=== PATIENT | female | born 1960 | race Caucasian/White ===

== ENCOUNTER → 2019-12-25 | Outpatient (CLI) | payer OTHER ==
--- NOTE | 2019-12-27 03:16 | MR ---
EXAMINATION TYPE: MR shoulder RT wo con DATE OF EXAM: 12/25/2019 COMPARISON: None HISTORY: Major pain with RT shoulder Multiplanar multiecho imaging of the right shoulder was performed without contrast. FINDINGS: There is deformity of the humeral head with flattening of the articular surface. There is shoulder warren int effusion. There is deformity of the glenoid with small or absent glenoid david. The subscapularis tendon is intact. There are multiple areas of cystic change in the humeral head and greater tuberosi ty. The biceps tendon is intact. The subscapularis tendon appears intact. There is no retraction. The AC joint is intact. There is min imal spurring of the inferior surface of the AC joint without significant impingement on the supraspi natus tendon. There is small amount of fluid in the subacromial subdeltoid bursa. IMPRESSION: Significant deformity of the shoulder joint with flattening of the articular surface of the humeral h ead and also adjacent deformity of the glenoid. No dislocation. Shoulder joint effusion and subdeltoi d effusion consistent with bursitis. No definite rotator cuff tear. Etiology is not clear for the sig nificant shoulder joint deformity. This could be neuropathic arthropathy.
== END | disposition home or self-care (01) ==
LOC: RADMRIMAIN 11:04
PROVIDERS: ATTEND Orthopaedic Surgery
DX: M21.821 Other specified acquired deformities of right upper arm (principal); M25.411 Effusion, right shoulder

== ENCOUNTER → 2020-01-01 | Outpatient (CLI) | payer OTHER | END | disposition home or self-care (01) | LOC: LABPAT 11:59 | PROVIDERS: ATTEND Orthopaedic Surgery | DX: Z01.812 Encounter for preprocedural laboratory examination (principal) | CPT/HCPCS: 87070 ==

== ENCOUNTER → 2020-01-07 | Outpatient (CLI) | payer OTHER ==
--- NOTE | 2020-01-08 11:14 | MM ---
Reason for exam: screening (asymptomatic). Last mammogram was performed 7 years and 6 months ago. History: Patient is postmenopausal. Took hormonal contraceptives for 1 year. Physical Findings: A clinical breast exam by your physician is recommended on an annual basis and results should be correlated with mammographic findings. MG 3D Screening Mammo W/Cad Bilateral CC and MLO view(s) were taken. Prior study comparison: November 02, 2015, mammogram, performed at [facility]. May 15, 2014, mammogram, performed at [facility]. The breast tissue is heterogeneously dense. This may lower the sensitivity of mammography. There are benign appearing vascular calcifications in the right breast. There is no discrete abnormality. ASSESSMENT: Benign, BI-RAD 2 RECOMMENDATION: Routine screening mammogram of both breasts in 1 year.
== END | disposition home or self-care (01) ==
LOC: RADMAMWWP 13:47
PROVIDERS: ATTEND Family Medicine
DX: Z12.31 Encounter for screening mammogram for malignant neoplasm of breast (principal)
CPT/HCPCS: 77063; 77067

== ENCOUNTER 2020-01-28 11:16 | Observation (INO) | payer OTHER ==
--- NOTE | 2020-01-27 11:09 | HP ---
HISTORY AND PHYSICAL CHIEF COMPLAINT: Right shoulder pain. HISTORY OF PRESENT ILLNESS: The patient is a 59-year-old right-hand dominant female who presents with progressive right shoulder pain for the past year. She notes diffuse pain. She has pain with any attempted overhead use and at night. She had a previous manipulation under anesthesia in May of 2019. She has had multiple previous injections. She is having persistent pain. PAST MEDICAL HISTORY: Significant for depression and subdural hematoma. PAST SURGICAL HISTORY: Significant for previous right shoulder manipulation. CURRENT MEDICATIONS: Omeprazole, Topamax, Wellbutrin. She has allergies to PENICILLIN. FAMILY HISTORY: Significant for cancer. SOCIAL HISTORY: Significant for previous tobacco use. 16 POINT REVIEW OF SYSTEMS: Otherwise reviewed and is noncontributory. PHYSICAL EXAMINATION: On examination, the patient is approximately 5 foot 1, 125 pounds of ectomorphic habitus. HEENT: Exam is nonfocal. NECK: Supple. On examination of right shoulder, she has moderate anterior swelling. There is no warmth or erythema. She is tender about the anterior glenohumeral joint. She has moderate subacromial crepitus. Active range of motion forward elevation 95 degrees with external rotation arm side 0, internal rotation to L3. Passively I am able to forward elevate her to 130 degrees. Motor strength is 4+/5 for abduction and external rotation. Impingement test, NEER test, and Speed test were positive. Her distal neurovascular appears intact in the right upper extremity. X-rays of the right shoulder obtained in the office show fragmentation of the humeral head with collapse. MRI of the right shoulder shows similar findings along with flattening of the glenoid. The rotator cuff appears to be intact. 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 RECOMMENDATIONS: I talked to the patient at length regarding her condition along with treatment options. At this point, I would recommend proceeding with surgical intervention. Will plan to proceed with right total shoulder arthroplasty versus reverse total shoulder arthroplasty. Risks and benefits were discussed at length in layman's terms. She did undergo preoperative medical evaluation by her primary care physician. MMODL / IJN: [id number] /
[~2020-01-28 11:16] MED LIST: ACETAMINOPHEN TAB 500 MG TAB PO ONE; DEXAMETHASONE SOD PHOSPHATE 10 MG/ML 1 ML VIAL IV ONE; HYDROmorphone 0.5 MG/0.5 ML SYRINGE IVP PRN; LIDOCAINE 1% (10MG/ML) FOR IV START INTRADERMA PRN; MELOXICAM 7.5 MG TAB PO ONE; MIDAZOLAM 2 MG/2 ML VIAL IV PRN; ONDANSETRON 4 MG/2 ML VIAL IVP ONE; TRANEXAMIC ACID 1,000 MG in SODIUM CHLORIDE 0.9% 100 ML IVPB ONE
[2020-01-28] MEDS: LACTATED RINGERS 1,000 ML IV SCH (11:55)
[2020-01-28] MEDS ORDERED: MIDAZOLAM 2 MG/2 ML VIAL IV ONE (12:11)
[2020-01-28] MEDS ORDERED: PROPOFOL 10 MG/ML 20 ML VIAL IV ONE (12:50)
[2020-01-28] MEDS ORDERED: MIDAZOLAM 2 MG/2 ML VIAL ONE (12:50)
[2020-01-28] MEDS ORDERED: ROCURONIUM 10 MG/ML (10 ML VIAL) IV ONE (12:50)
[2020-01-28] MEDS ORDERED: PHENYLEPHRINE-0.9% NACL SYG 1 MG/10 ML SYRINGE ONE (12:50)
[2020-01-28] MEDS ORDERED: TRANEXAMIC ACID 1,000 MG/10 ML VIAL ONE (12:50)
[2020-01-28] MEDS ORDERED: fentaNYL (PF) 50 MCG/ML 2 ML AMP ONE (12:50)
[2020-01-28] MEDS ORDERED: NEOSTIGMINE 1 MG/ML 10 ML VIAL ONE (12:50)
[2020-01-28] MEDS ORDERED: SODIUM CHLORIDE 0.9% 100 ML BAG ONE (12:50)
[2020-01-28] MEDS ORDERED: SUCCINYLCHOLINE CHLORIDE 100 MG/5 ML SYR IV ONE (12:50)
[2020-01-28] MEDS ORDERED: GLYCOPYRROLATE 0.2 MG/ML 2 ML VIAL ONE (12:50)
[2020-01-28] MEDS ORDERED: ONDANSETRON 4 MG/2 ML VIAL ONE (12:50)
[2020-01-28] MEDS ORDERED: DEXAMETHASONE SOD PHOSPHATE 4 MG/ML 1 ML VIAL ONE (12:50)
[2020-01-28] MEDS ORDERED: ROPIVACAINE 5 MG/ML 30 ML VIAL ONE (12:50)
--- NOTE | 2020-01-28 13:06 | P.ANPRN ---
Procedure Note - Anesthesia - Nerve Block Performed Right Interscalene Single Time Out Performed: Yes (1210) Date of Procedure: 01/28/20 Procedure Start Time: 12:11 Procedure Stop Time: 12:21 Location of Patient: PreOp Indication: Acute Post-Operative Pain, Analgesia, Requested by Surgeon Specifically requested for management of pain by : Dick Gaines Sedation Type: Sedate with meaningful contact maintained Preparation: Sterile Prep Position: Left Lateral Catheter: None Needle Types: Pajunk Needle Gauge: 20 Ultrasound used to visualize needle placement: Yes Ultrasound used to observe medication spread: Yes Injectate: 0.5% Ropivacaine (see comment for volume) (19 mL + 10 mg decadron) Blood Aspirated: No Pain Paresthesia on Injection Noted: No Resistance on Injection: Normal Image Stored and Saved: Yes Events: Uneventful and Well Tolerated
[2020-01-28] MEDS ORDERED: LACTATED RINGERS 1,000 ML IV ONE (14:40)
[2020-01-28] MEDS ORDERED: ONDANSETRON 4 MG/2 ML VIAL IVP PRN (14:47)
[2020-01-28] MEDS ORDERED: HYDROcodone/APAP 5-325MG 1 EACH TAB PO PRN ×2 (14:47)
[2020-01-28] MEDS ORDERED: ACETAMINOPHEN TAB 325 MG TAB PO PRN (14:51)
--- NOTE | 2020-01-28 15:13 | P.OP ---
Date of Procedure: 01/28/20 Preoperative Diagnosis: Right proximal humeral avascular necrosis with collapse/severe arthropathy right shoulder Postoperative Diagnosis: Same Procedure(s) Performed: Right total shoulder arthroplasty Implants: [employer] size 10 press-fit humeral stem was size 8 body, 44 x 18 mm eccentric humeral head, 40 mm cemented central pegged glenoid Anesthesia: NIMISHA Surgeon: Dick Gaines Private Duty Rn #1: Grzegorz Moss Estimated Blood Loss (ml): 100 Pathology: other (Bone fragments) Condition: stable Disposition: PACU Indications for Procedure: The patient's a 59-year-old female who previously underwent a right shoulder manipulation presented with fragmentation of her humeral head and severe glenohumeral arthropathy. A discussion of the risks and benefits of operative intervention was made with patient. She opted to proceed with surgery. Operative risks to include infection, neurovascular injury, development of blood clots, possible component loosening, possible instability and need for subsequent procedures was discussed. Informed consent was obtained. Operative Findings: As below Description of Procedure: The patient was brought to the operating room, and after induction of general anesthesia was placed in the beachchair position. The bony prominences were appropriately padded. The right upper extremity was prepped and draped in normal fashion. A deltopectoral incision was then made lateral to the coracoid process extending approximately 12 cm. The skin was incised sharply. Subcutaneous tissues were divided bluntly. Electrocautery was used for hemostasis. The deltopectoral interval was identified and the cephalic vein gently retracted laterally with the deltoid. Subdeltoid adhesions were bluntly dissected. A self-retaining retractor was placed. The clavipectoral fascia was opened and the conjoined tendon gently retracted medially. The upper one third of the pectoralis major was released to help facilitate exposure. The biceps was identified and the sheath was opened. The rotator interval was opened. The biceps was tenotomized and allowed to retract distally. The lesser tuberosity osteotomy was performed with a small sagittal saw. This completed with an osteotome. The humeral head was then exposed releasing the capsule off the humeral neck. The shoulder was gently dislocated. A starting hole was made in the head in line with the humeral shaft. The shaft was reamed by hand up to 10 mm. There is good distal chatter. The cutting guide was placed planning on a cut flush with the rotator cuff insertion and 30 of retroversion. The cutting block was pinned in place. The humeral head cut was then made. A posterior glenoid retractor was placed. The glenoid was then exposed releasing the labrum from the 12-6 o'clock position. Residual labral tissue was removed. The glenoid sized most appropriate 40 mm. A guidewire was then inserted planning on the appropriate version. The glenoid was reamed down to a bleeding bony surface. The central peg hole was drilled. The alignment guide was placed in the peripheral peg holes drilled. The trial size 40 mm glenoid was placed and was fully seated. There was good anterior to posterior and inferior to superior fit. The trial component was removed. Pulsatile lavage was utilized. The bony surface was dried. The peripheral peg holes were then pressurized with cement utilizing a syringe. Excess cement was removed. A central peg glenoid was then placed and was fully seated. This was gently impacted. This was held in place until the cement had sufficiently hardened. Attention was then paid again towards preparing the proximal humerus. The appropriate broach was placed in 30 of retroversion and was fully seated. An eccentric 44 x 18 mm humeral head was placed. The shoulder was gently reduced. It was taken through a range of motion. It was felt to be stable in flexion and extension with internal and external rotation. I felt there was adequate latter day of soft tissue tension. The shoulder was gently dislocated. The trial components were then removed. A #2 Ethibond was placed laterally for reattachment of the lesser tuberosity. The humeral stem was inserted in 30 of retroversion and was fully seated. There was good rotational stability. The eccentric 44 x 18 mm humeral head was gently impacted. The shoulder was then gently reduced and taken through range of motion and was felt to be stable. Pulsatile lavage was utilized. Lesser tuberosity was reattached utilizing #2 Ethibond suture. The rotator interval was closed with #2 Ethibond suture. She had minimal drainage at this point therefore a deep drain was not placed. The deltopectoral interval was closed with interrupted 2-0 Vicryl sutures. The subcu tissues were reapproximated with interrupted 2-0 Vicryl sutures. The skin was reapproximated with 3-0 subcuticular Prolene suture. Steri-Strips were applied. A sterile dressing was applied in addition to a sling. The patient was then awoken from general anesthesia and transferred to recovery room in good condition. Blood loss was estimated at 100 mL. No complications were incurred. Sponge and needle counts were correct at the end the case. Frank OLMOS assisted in the major components the case to include exposure, resection, implantation, and closure.
--- NOTE | 2020-01-28 15:50 | XR ---
EXAMINATION TYPE: XR shoulder complete RT DATE OF EXAM: 01/28/2020 Comparison: None Clinical History: 59year-old female s/p right TSA Findings: Image demonstrates placement of right total shoulder arthroplasty. There is gross anatomic alignment. Some scattered soft tissue air related to recent operation. Humeral stem component well seated. Impression: Uncomplicated postoperative appearance right total shoulder arthroplasty.
[2020-01-28] MEDS ORDERED: ALPRAZolam 1 MG TAB PO SCH (23:30)
[2020-01-28] MEDS: CYCLOBENZAPRINE 10 MG TAB PO SCH (23:31)
[2020-01-29] MEDS: LACTATED RINGERS 1,000 ML IV SCH (05:17)
[2020-01-29 06:50] LABS: Basophils % (A) 0 %; Eosinophils # (A) 0.1 k/uL (0-0.7); Eosinophils % (A) 1 %; HCT 30.4 % (34.0-46.0); HGB 9.7 gm/dL (11.4-16.0); Lymphocytes # (A) 0.7 k/uL (1.0-4.8); Lymphocytes % (A) 11 %; MCH 28.4 pg (25.0-35.0); MCV 88.7 fL (80.0-100.0); Mean Platelet Volume 7.3; Monocytes # (A) 0.4 k/uL (0-1.0); Monocytes % (A) 6 %; Neutrophils # (A) 5.5 k/uL (1.3-7.7); Neutrophils % (A) 81 %; Platelet Count 176 k/uL (150-450); RBC 3.43 m/uL (3.80-5.40); RDW 13.6 % (11.5-15.5); WBC 6.8 k/uL (3.8-10.6)
[2020-01-29] MEDS: ASPIRIN 325 MG TAB PO SCH (08:20)
[2020-01-29] MEDS: HYDROmorphone 0.5 MG/0.5 ML SYRINGE IVP PRN ×3 (08:20→19:58)
[2020-01-29] MEDS ORDERED: HYDROcodone/APAP 7.5-325MG 1 EACH TAB PO PRN (10:35)
[2020-01-29] MEDS ORDERED: HYDROXYCHLOROQUINE SULFATE 200 MG TAB PO SCH (10:45)
[2020-01-29] MEDS: HYDROcodone/APAP 7.5-325MG 1 EACH TAB PO PRN ×2 (11:07→17:24)
[2020-01-29] MEDS: PANTOPRAZOLE 40 MG TABLET PO SCH (11:09)
--- NOTE | 2020-01-29 11:09 | P.PN ---
Subjective Progress Note Date: 01/29/20 Principal diagnosis: Status post right total shoulder arthroplasty patient is examined today at bedside, stressing bed. She's been up ambulating. She has had some increase in pain, this has required IV pain medication. She denies any headaches, lightheadedness, chest pain, shortness of breath, fever or chills. Objective - Vital Signs Vital signs: Vital Signs Temp 97.3 F L 01/29/20 07:08 Pulse 84 01/29/20 07:08 Resp 14 01/29/20 07:08 BP 103/62 01/29/20 07:08 Pulse Ox 97 01/29/20 07:08 Intake & Output 01/28/20 01/29/20 01/29/20 18:59 06:59 18:59 Intake Total 1550 Output Total 100 Balance 1450 Weight 57.8 kg Intake: IV 1550 Output: Estimated Blood Loss 100 Other: # Voids 1 - Exam Right upper extremity: Postoperative bandages removed, incision is clean, dry and intact. Minimal ecchymosis and soft tissue swelling present throughout the arm. Range of motion was not assessed of the shoulder, extension and flexion are intact to the elbow, and wrist. Exam light touch throughout the extremity is intact. Radial pulses 2+ - Labs CBC & Chem 7: 01/29/20 06:09 Labs: Abnormal Lab Results - Last 24 Hours (Table) 01/29/20 Range/Units 06:09 RBC 3.43 L (3.80-5.40) m/uL Hgb 9.7 L (11.4-16.0) gm/dL Hct 30.4 L (34.0-46.0) % Lymphocytes # 0.7 L (1.0-4.8) k/uL Assessment and Plan Assessment: Status post right total shoulder arthroplasty Plan: Pain control, I did increase oral [place] 7.5 mg/325 mg DVT prophylaxis, continue aspirin 325 mg daily Daily dressing changes Continue use of arm sling Medical recommendations Depending on pain control this afternoon, may discharge home today Time with Patient: Less than 30
[2020-01-29] MEDS: MELOXICAM 7.5 MG TAB PO SCH (11:10)
[2020-01-29] MEDS: ATORVASTATIN 80 MG TAB PO SCH (11:12)
[2020-01-29] MEDS: FLUoxetine HCL 20 MG CAP PO SCH (11:13)
[2020-01-29] MEDS: HYDROXYCHLOROQUINE SULFATE 200 MG TAB PO SCH (11:15)
[2020-01-29] MEDS: buPROPion SR 150 MG TABLET.ER PO SCH (11:15)
--- NOTE | 2020-01-29 17:18 | CONS ---
CONSULTATION This patient is a 59-year-old white female with home medications Wellbutrin XR, rosuvastatin, omeprazole, Mobic, Plaquenil, Prozac and Xanax who is here status post right shoulder repair. She is having no chest pain or shortness of breath. At this point we are going to restart her home medicines. Otherwise she appears to be stable. ALLERGIES: PENICILLIN. FAMILY HISTORY: Cancer. SOCIAL HISTORY: Previous nicotine. PHYSICAL EXAMINATION: Height 5 feet 1 inch, 125 pounds. HEENT: Normocephalic, atraumatic. NECK: Supple. CARDIOVASCULAR: S1, S2. LUNGS: Clear. Right arm in a sling. Bandage on the shoulder. ASSESSMENT: Status post shoulder repair, right humeral head. Continue her home medications that she takes for depression, migraines, GERD. Please see further orders. Stable at this time. MMODL / IJN: [id number] /
[2020-01-29] MEDS: CYCLOBENZAPRINE 10 MG TAB PO SCH (20:00)
[2020-01-29] MEDS ORDERED: ALPRAZolam 1 MG TAB PO SCH (21:00)
[2020-01-30] MEDS: HYDROcodone/APAP 7.5-325MG 1 EACH TAB PO PRN ×2 (01:51→09:29)
[2020-01-30] MEDS: HYDROmorphone 0.5 MG/0.5 ML SYRINGE IVP PRN (03:50)
[2020-01-30] MEDS: FLUoxetine HCL 20 MG CAP PO SCH (09:23)
[2020-01-30] MEDS: ATORVASTATIN 80 MG TAB PO SCH (09:25)
[2020-01-30] MEDS: MELOXICAM 7.5 MG TAB PO SCH (09:25)
[2020-01-30] MEDS: ASPIRIN 325 MG TAB PO SCH (09:25)
[2020-01-30] MEDS: PANTOPRAZOLE 40 MG TABLET PO SCH (09:29)
[2020-01-30] MEDS: buPROPion SR 150 MG TABLET.ER PO SCH (09:31)
[2020-01-30] MEDS: HYDROXYCHLOROQUINE SULFATE 200 MG TAB PO SCH (09:32)
--- NOTE | 2020-01-30 11:00 | P.PN ---
Subjective Progress Note Date: 01/30/20 Principal diagnosis: Status post right total shoulder arthroplasty patient is examined today at bedside, stressing bed. She's been up ambulating. Pain is better controlled today. She denies any headaches, lightheadedness, chest pain, shortness of breath, fever or chills. Objective - Vital Signs Vital signs: Vital Signs Temp 97.3 F L 01/30/20 09:04 Pulse 90 01/30/20 09:04 Resp 16 01/30/20 09:04 BP 113/75 01/30/20 09:04 Pulse Ox 96 01/30/20 09:04 Intake & Output 01/29/20 01/30/20 01/30/20 18:59 06:59 18:59 Other: # Voids 2 1 - Exam Right upper extremity: Incision is clean, dry and intact. Minimal ecchymosis and soft tissue swelling present throughout the arm. Range of motion was not assessed of the shoulder, extension and flexion are intact to the elbow, and wrist. Exam light touch throughout the extremity is intact. Radial pulses 2+ - Labs CBC & Chem 7: 01/29/20 06:09 Assessment and Plan Assessment: Status post right total shoulder arthroplasty Plan: Pain control, plan for discharge home on [place] 7.5 mg/5 mg DVT prophylaxis, continue aspirin 325 mg daily Daily dressing changes Continue use of arm sling Medical recommendations Plan for discharge home today Time with Patient: Less than 30
--- NOTE | 2020-01-30 11:02 | P.DS ---
Providers Date of admission: 01/28/2020 Expected date of discharge: 01/30/20 Attending physician: Dick Gaines Consults: 01/28/20 14:51 Consult Physician Routine Consulting Provider: Patricia Grimes Reason/Comments: Medical Management Do you want consulting provider notified?: Yes Primary care physician: Patricia Grimes DO Hospital Course: Date of admission: 01/28/2020 Date of discharge: 01/30/2020 Admission diagnosis: Status post right total shoulder arthroplasty Discharge diagnosis: Same Attending physician: Dr. Gaines Surgical procedures: Total shoulder arthroplasty Brief history: Patient is a 59-year-old female with a history of avascular necrosis involving the humeral head of the right shoulder. At this point patient has failed conservative treatment measures and has opted to proceed with a elective right total shoulder arthroplasty. Hospital course: Details of patient's surgery can be found in operative report. Patient tolerated the procedure well and was subsequently transported to orthopedic floor. Patient's orthopeidc and medical care was provided daily. Patient had daily laboratory tests performed for evaluation of overall blood counts. Patient had daily physical therapy to include strengthening range of motion as well as education with walker ambulation. Patient was treated with aspirin for their postoperative DVT prophylaxis during their inpatient stay. Patient was noted to have a relatively uneventful postoperative course. Patient reported satisfactory pain control with oral pain medications by postoperative day 0. Patient showed satisfactory progress with physical therapy. Patient moved steadily through the program and had no difficulty meeting the goals by postoperative day 2. Given patient's otherwise satisfactory course and having met physical therapy goals, plan is to discharge patient home on postoperative day 2. Discharge condition/disposition: Patient will be discharged home in stable condition. Discharge medications: Instructions are given on resumption of patient's normal daily medications per primary care recommendation, in addition patient will be prescribed [place] 7.5 mg/325 mg, aspirin 325 mg. Discharge instructions: 1. Wound care and infection precautions, keep incision dry and covered while showering, no lotions, creams, moisturizers. No soaking, tubs, pools, hottubs. Do not scrub over the incision. 2. Utilize arm sling, pendular exercises daily 3. Ice and elevate when necessary. Do not exceed 20 minutes per hour with ice pack. 4. Utilize compression sleeve until seen at first follow up appointment. 7. Pain meds and anticoagulants per prescription. 8. Pain medication has potential to cause constipation. Increase oral fluid and fiber intake. Contact primary care provider if you have not had a bowel movement within 48 hours after discharge 9. No anti-inflammatory medication until discussed at first post operative visit, this including Motrin, Aleve, Mobic, Diclofenac 10. Follow up in office at 2 weeks postop with Frank Moss PA-C 11. Follow up with your primary care doctor 7-10 days after discharge. 12. Contact [facility] with any questions, . Procedures: Right total shoulder arthroplasty Patient Condition at Discharge: Good Plan - Discharge Summary Discharge Rx Participant: No New Discharge Prescriptions: New Aspirin 325 mg PO DAILY #30 tab HYDROcodone/APAP 7.5-325MG [[place] 7.5] 1 - 2 each PO Q6HR PRN #42 tab PRN Reason: Pain No Action Rosuvastatin Calcium 40 mg PO QAM buPROPion HCL [Wellbutrin SR] 150 mg PO QAM Meloxicam [Mobic] 15 mg PO QAM ALPRAZolam [Xanax] 1 mg PO HS Hydroxychloroquine Sulfate [Plaquenil] 200 mg PO Q48H Hydroxychloroquine Sulfate [Plaquenil] 400 mg PO QAM Omeprazole 40 mg PO QAM FLUoxetine HCL [PROzac] 60 mg PO QAM Discharge Medication List ALPRAZolam [Xanax] 1 mg PO HS 01/27/20 [History] FLUoxetine HCL [PROzac] 60 mg PO QAM 01/27/20 [History] Hydroxychloroquine Sulfate [Plaquenil] 200 mg PO Q48H 01/27/20 [History] Hydroxychloroquine Sulfate [Plaquenil] 400 mg PO QAM 01/27/20 [History] Meloxicam [Mobic] 15 mg PO QAM 01/27/20 [History] Omeprazole 40 mg PO QAM 01/27/20 [History] Rosuvastatin Calcium 40 mg PO QAM 01/27/20 [History] buPROPion HCL [Wellbutrin SR] 150 mg PO QAM 01/27/20 [History] Aspirin 325 mg PO DAILY #30 tab 01/30/20 [Rx] HYDROcodone/APAP 7.5-325MG [[place] 7.5] 1 - 2 each PO Q6HR PRN #42 tab 01/30/20 [Rx] Follow up Appointment(s)/Referral(s): Grzegorz Moss PAC [PHYSICIAN INTERIOR DESIGN PRINCIPAL] - 02/12/20 3:30 pm Activity/Diet/Wound Care/Special Instructions: Orthopedic discharge instructions: 1. Resume home medications 2. Pain medication as needed 3. Aspirin 325 mg daily for 2 weeks 4. Keep incision dry and covered while showering 5. Light pendular exercises daily 6. Ice the shoulder often 7. Utilize arm sling 8. Plan for follow-up at [facility] in 2 weeks Discharge Disposition: HOME WITH HOME HEALTH SERVICES
[2020-01-30 13:14] VITALS: BP 113/71; PULSE 89; RESP 15; TEMP 97
== END 2020-01-30 14:33 | disposition home or self-care (01) ==
LOC: OR 11:16 → 4SSUR 15:01 → INTOOBSV 01-29 14:07 → 4SSUR 01-29 14:07 → OR 01-29 14:07 → 4SSUR 01-29 23:11 → UNDODISIN 01-30 14:33
PROVIDERS: ADMIT Orthopaedic Surgery; ATTEND Orthopaedic Surgery
DX: M19.011 Primary osteoarthritis, right shoulder (principal); M87.821 Other osteonecrosis, right humerus; F32.9 Major depressive disorder, single episode, unspecified; K21.9 Gastro-esophageal reflux disease without esophagitis; G43.909 Migraine, unspecified, not intractable, without status migrainosus; Z86.69 Personal history of other diseases of the nervous system and sense organs; I10 Essential (primary) hypertension; M54.2 Cervicalgia; K58.9 Irritable bowel syndrome, unspecified; Z88.0 Allergy status to penicillin; Z79.899 Other long term (current) drug therapy; Z87.891 Personal history of nicotine dependence; Z79.1 Long term (current) use of non-steroidal anti-inflammatories (NSAID); Z80.9 Family history of malignant neoplasm, unspecified
CPT/HCPCS: 64415; 76942; 85025; 88300; 73030; 23472; G0378 ×2; C1713; C1776; J2250; J1100 ×2; J2710; S0106 ×2; J0690 ×2; J2405; J3010; J2795; J2370; J0330; J2704; J1170 ×2

== ENCOUNTER → 2020-03-30 | Outpatient (CLI) | payer MEDICARE, OTHER ==
--- NOTE | 2020-03-30 10:34 | MR ---
EXAMINATION TYPE: MR brain wo/w con DATE OF EXAM: 03/30/2020 COMPARISON: CT brain 08/20/2018, 07/17/2018 HISTORY: New onset of Headaches. Prior Subdural drained. TECHNIQUE: Multiplanar, multisequence images of the brain and brainstem is performed without and with IV contras t, utilizing 6 mL intravenous Gadavist . FINDINGS: Diffusion weighted images demonstrate no evidence of a recent infarct or other diffusion ab normality. There is no change in asymmetric prominence of cerebral spinal fluid over the right front al lobe as compared to left. Scattered hyperintensities are present on inversion recovery T2-weighte d sequences within the subcortical, periventricular and pericallosal white matter and louise, approxima tely 30 lesions are present. The ventricular system and cisternal spaces are normal in size and appea saúl. The brain volume is age appropriate. Left frontal craniotomy change is again noted Midline structures demonstrate normal morphology. The craniocervical junction appears within normal limits. Post contrast images demonstrate dural enhancement likely related prior instrumentation dejan cially over the left frontal region. The dural venous sinuses appear patent. The visualized sinuses a re clear and the globes are intact. IMPRESSION: Postop changes. Nonspecific white matter demyelination could be related to chronic small vessel ischemic change, hypertension, migraine headaches, multiple sclerosis is not excluded but may be less likely, correlate.
== END | disposition home or self-care (01) ==
LOC: RADMRIMAIN 09:06
PROVIDERS: ATTEND Family Medicine
DX: G37.9 Demyelinating disease of central nervous system, unspecified (principal); Z98.890 Other specified postprocedural states
CPT/HCPCS: 70553; A9585

== ENCOUNTER → 2020-04-28 | Outpatient (CLI) | payer MEDICARE, OTHER ==
--- NOTE | 2020-04-28 16:12 | MR ---
EXAMINATION TYPE: MR shoulder LT wo con DATE OF EXAM: 04/28/2020 COMPARISON: Outside left shoulder x-ray March 30, 2020 HISTORY: Left shoulder pain and loss of Range of Motion x several months TECHNIQUE: Multiplanar, multisequence imaging of the left shoulder is performed without contrast. FINDINGS: Rotator Cuff: Significant retracted tear of the majority of fibers of the distal supraspinatus tendon up to outer aspect of the acromion seen best coronal image 7. A few of the posterior fibers may be i ntact. Infraspinatus tendon is intact with increased signal in the distal fibers. Subscapularis tendo n intact. Rotator cuff muscle bulk preserved. Acromioclavicular Joint: Slight superior displacement of the inferior aspect distal clavicle relative to inferior margin of the acromion. Moderate capsular hypertrophy. [id number] joint space narr owing. Loss of underlying fat plane at this site of slightly low-lying distal acromion where there is edematous change surrounding the rotator cuff tendons particularly infraspinatus tendon coronal imag e 13. Glenohumeral Joint: Moderate narrowing with moderate glenohumeral joint effusion. [id number]-[id number] s pur inferior medial humeral head. Few small subchondral cysts in the osseous glenoid coronal image 15 . Labrum: The superior labrum is blunted with abnormal increased signal consistent with degenerative te ar. Biceps Tendon: The long head of biceps is in normal location within bicipital groove. Intracapsular p ortion not well seen due to biceps anchor, tear is suspected in the rotator cuff interval Bone marrow signal: Small Subchondral cyst superior lateral humeral head coronal image 9. Other: No additional significant abnormality is appreciated. IMPRESSION: 1. Significant retracted tear of the supraspinatus tendon with perhaps a few fibers posteriorly remai thomas intact. 2. Chronic AC joint subluxation with evidence of underlying impingement. 3. Superior labral tear with suspected tear of the biceps anchor. 4. Tendinosis distal infraspinatus tendon and subscapularis tendons.. 5.. Moderate glenohumeral joint arthropathy as detailed above.
== END | disposition home or self-care (01) ==
LOC: RADMRIMAIN 14:51
PROVIDERS: ATTEND Orthopaedic Surgery
DX: S43.112A Subluxation of left acromioclavicular joint, initial encounter (principal); S46.812A Strain of other muscles, fascia and tendons at shoulder and upper arm level, left arm, initial encounter; S43.492A Other sprain of left shoulder joint, initial encounter; M12.812 Other specific arthropathies, not elsewhere classified, left shoulder; M67.814 Other specified disorders of tendon, left shoulder

== ENCOUNTER → 2020-06-09 | Outpatient (CLI) | payer MEDICARE | END | disposition home or self-care (01) | LOC: LABPAT 10:07 | PROVIDERS: ATTEND Orthopaedic Surgery | DX: Z01.812 Encounter for preprocedural laboratory examination (principal) | CPT/HCPCS: 87070 ==

== ENCOUNTER 2020-06-23 06:17 | Inpatient (IN) | payer MEDICARE, OTHER ==
[2020-06-17 17:23] VITALS: BMI 24.5
--- NOTE | 2020-06-22 09:40 | HP ---
HISTORY AND PHYSICAL CHIEF COMPLAINT: Left shoulder pain. HISTORY OF PRESENT ILLNESS: The patient is a 59-year-old right-hand dominant female who presents with left shoulder pain progressing over the past several months. She is having difficult time with any attempted overhead use. She is also having significant night symptoms. She rates her pain 10/10. She has tried an injection along with home stretching regimen without much relief. She feels as though her symptoms are worsening. PAST MEDICAL HISTORY: Significant for gastroesophageal reflux disease, hypertension, depression and a subdural hematoma. PAST SURGICAL HISTORY: Significant for right total shoulder arthroplasty for avascular necrosis. CURRENT MEDICATIONS: 1. Omeprazole. 2. Mobic. 3. Prozac. 4. Topamax. 5. Wellbutrin. 6. Flexeril. 7. Cholesterol medication. ALLERGIES: She notes allergies to PENICILLIN. FAMILY HISTORY: Significant for cancer. SOCIAL HISTORY: Significant for previous tobacco use. REVIEW OF SYSTEMS: Sixteen-point review of systems otherwise reviewed and is noncontributory. PHYSICAL EXAMINATION: On examination, the patient is approximately 5 feet 1 inch, 125 pounds of mesomorphic habitus. HEENT exam is nonfocal. Neck is supple. On examination of her left shoulder, she is tender about the anterior subacromial space. She has moderate subacromial crepitus. Active range of motion forward elevation 90 degrees, external rotation with the arm side 55 degrees, internal rotation to L2. Passively I am able to forward elevate her to 140 degrees. Impingement test, Neer test, and Speed test are positive. Her distal neurovascular exam appears intact in the left upper extremity. X-rays of the left shoulder obtained in the office show severe glenohumeral joint space narrowing with [id number] changes. There is subchondral sclerosis. MRI left shoulder 04/28/2020 shows evidence of severe glenohumeral joint osteoarthrosis along with rotator cuff tendinosis. IMPRESSION: 1. Left glenohumeral joint osteoarthrosis. 2. History of avascular necrosis, right shoulder. RECOMMENDATIONS: I talked to the patient at length regarding her condition and treatment options. At this point, she is quite symptomatic and limited because of pain related to her osteoarthrosis despite a trial of conservative measures. After thorough discussion, she opts to proceed with surgery. We will plan to proceed with left total shoulder arthroplasty. Risks and benefits were discussed at length in layman's terms. MMODL / IJN: [id number] /
[~2020-06-23 06:17] MED LIST changes: -ACETAMINOPHEN TAB 500 MG TAB PO ONE; +ACETAMINOPHEN TAB 500 MG TAB PO PRN; -DEXAMETHASONE SOD PHOSPHATE 10 MG/ML 1 ML VIAL IV ONE; +DEXAMETHASONE SOD PHOSPHATE 4 MG/ML 1 ML VIAL IV ONE; -HYDROmorphone 0.5 MG/0.5 ML SYRINGE IVP PRN; -MELOXICAM 7.5 MG TAB PO ONE; +MELOXICAM 7.5 MG TAB PO PRN; -TRANEXAMIC ACID 1,000 MG in SODIUM CHLORIDE 0.9% 100 ML IVPB ONE; +TRANEXAMIC ACID 1,000 MG in SODIUM CHLORIDE 0.9% 100 ML IVPB PRN
[2020-06-23] MEDS ORDERED: HYDROmorphone 0.5 MG/0.5 ML SYRINGE IVP PRN ×2 (07:00→09:57)
[2020-06-23] MEDS: LACTATED RINGERS 1,000 ML IV SCH (07:21)
[2020-06-23] MEDS ORDERED: fentaNYL (PF) 50 MCG/ML 2 ML AMP ONE (07:42)
[2020-06-23] MEDS ORDERED: NEOSTIGMINE 1 MG/ML 10 ML VIAL ONE (07:42)
[2020-06-23] MEDS ORDERED: GLYCOPYRROLATE 0.2 MG/ML 2 ML VIAL ONE (07:42)
[2020-06-23] MEDS ORDERED: LABETALOL 5 MG/ML VIAL MDV ONE (07:42)
[2020-06-23] MEDS ORDERED: HYDROmorphone (PF) 1 MG/ML ONE (07:42)
[2020-06-23] MEDS ORDERED: SUCCINYLCHOLINE CHLORIDE 100 MG/5 ML SYR IV ONE (07:42)
[2020-06-23] MEDS ORDERED: TRANEXAMIC ACID 1,000 MG/10 ML VIAL ONE (07:42)
[2020-06-23] MEDS ORDERED: SODIUM CHLORIDE 0.9% 100 ML BAG ONE (07:42)
[2020-06-23] MEDS ORDERED: PROPOFOL 10 MG/ML 20 ML VIAL IV ONE (07:42)
[2020-06-23] MEDS ORDERED: ROPIVACAINE 5 MG/ML 30 ML VIAL ONE (07:42)
[2020-06-23] MEDS ORDERED: LIDOCAINE 1% INJ 10MG/ML (20 ML MDV) ONE (07:42)
[2020-06-23] MEDS ORDERED: PHENYLEPHRINE-0.9% NACL SYG 1,000 MCG/10 ML SYRINGE ONE (07:42)
[2020-06-23] MEDS ORDERED: ROCURONIUM 10 MG/ML (5 ML VIAL) IV ONE (07:42)
[2020-06-23] MEDS ORDERED: MIDAZOLAM 2 MG/2 ML VIAL ONE (07:42)
[2020-06-23] MEDS ORDERED: DEXAMETHASONE SOD PHOSPHATE 4 MG/ML 1 ML VIAL ONE (07:42)
[2020-06-23] MEDS ORDERED: ceFAZolin 3,000 MG in SODIUM CHLORIDE 0.9% IRRIGATIO 3,000 ML IRRIGATION ONE (08:18)
[2020-06-23] MEDS ORDERED: LACTATED RINGERS 1,000 ML IV ONE (09:36)
[2020-06-23] MEDS ORDERED: ONDANSETRON 4 MG/2 ML VIAL IVP PRN (09:57)
[2020-06-23] MEDS ORDERED: HYDROmorphone 1 MG/ML 1 ML SYRINGE IVP PRN (09:57)
[2020-06-23] MEDS ORDERED: ALBUTEROL NEBULIZED 2.5 MG/3 ML INHALATION ONE (10:02)
[2020-06-23] MEDS ORDERED: HYDROcodone/APAP 7.5-325MG 1 EACH TAB PO PRN (10:05)
--- NOTE | 2020-06-23 10:06 | P.OP ---
Date of Procedure: 06/23/20 Preoperative Diagnosis: Severe left glenohumeral joint osteoarthrosis Postoperative Diagnosis: Same Procedure(s) Performed: Left total shoulder arthroplasty Implants: [employer] size 12 press-fit humeral stem with size 10 body, 44 x 15 mm eccentric humeral head, 40 mm cemented pegged glenoid component Anesthesia: carla BANSAL Surgeon: [employer] Librarian #1: Grzegorz Moss Estimated Blood Loss (ml): 150 Pathology: other (Humeral head) Condition: stable Disposition: PACU Indications for Procedure: The patient is a 59-year-old female who presents with progressive left shoulder pain secondary to osteoarthrosis despite conservative measures. A discussion of the risks and benefits of operative intervention versus continued conservative measures was made with patient. She opted to proceed with surgery. Operative risks to include infection, neurovascular injury, fracture, component loosening, instability, possible need for subsequent procedures was discussed. Informed consent was obtained. Operative Findings: As below Description of Procedure: The patient was brought to the operating room, and after induction of general anesthesia was placed in the beachchair position. The bony prominences were appropriately padded. The left upper extremity was prepped and draped in normal fashion. A deltopectoral incision was then made lateral to the coracoid process extending approximately 12 cm. The skin was incised sharply. Subcutaneous tissues were divided bluntly. Electrocautery was used for hemostasis. The deltopectoral interval was identified and the cephalic vein gently retracted laterally with the deltoid. Subdeltoid adhesions were bluntly dissected. A self-retaining retractor was placed. The clavipectoral fascia was opened and th e conjoined tendon gently retracted medially. The upper one third of the pectoralis major was released to help facilitate exposure. The biceps was identified and the sheath was opened. The rotator interval was opened. The biceps was tenotomized and allowed to retract distally. The lesser tuberosity osteotomy was performed with a small sagittal saw. This completed with an osteotome. The humeral head was then exposed releasing the capsule off the humeral neck. The shoulder was gently dislocated. A starting hole was made in the head in line with the humeral shaft. The shaft was reamed by hand up to 12 mm. There is good distal chatter. The cutting guide was placed planning on 8 cut flush with the rotator cuff insertion and 30 of retroversion. The cutting block was pinned in place. The humeral head cut was then made. This measured most appropriately at 44 x 15 mm. Residual inferior osteophytes were carefully removed flush with the [place] cortical bone. A posterior glenoid retractor was placed. The glenoid was then exposed releasing the labrum from the 6-12 o'clock position. Residual labral tissue was removed. The glenoid sized most appropriate 40 mm. A guidewire was then inserted planning on the appropriate version. The glenoid was reamed down to a bleeding bony surface. The central peg hole was drilled. The alignment guide was placed in the peripheral peg h oles drilled. The trial size 40 mm glenoid was placed and was fully seated. There was good anterior to posterior and inferior to superior fit. The trial component was removed. Pulsatile lavage was utilized. The bony surface was dried. The peripheral peg holes were then pressurized with cement utilizing a syringe. Excess cement was removed. A central peg glenoid was then placed and was fully seated. This was gently impacted. This was held in place until the cement had sufficiently hardened. Attention was then paid again towards preparing the proximal humerus. The appropriate broach was placed in 30 of retroversion and was fully seated. An eccentric 44 x 15 mm humeral head was placed. The shoulder was gently reduced. It was taken through a range of motion. It was felt to be stable in flexion and extension with internal and external rotation. I felt there was adequate religious of soft tissue tension. The shoulder was gently dislocated. The trial components were then removed. A #2 Ethibond was placed laterally for reattachment of the lesser tuberosity. The humeral stem was inserted in 30 of retroversion and was fully seated. There was good rotational stability. The eccentric 44 x 15 mm humeral head was gently impacted. The shoulder was then gently reduced and taken through range of motion and was felt to be stable. Pulsatile lavage was utilized. Lesser tuberosity was reattached utilizing #2 Ethibond suture. The rotator interval was closed with #2 Ethibond suture. She had minimal drainage at this point therefore a deep drain was not placed. The deltopectoral interval was closed with interrupted 2-0 Vicryl sutures. The subcu tissues were reapproximated with interrupted 2-0 Vicryl sutures. The skin was reprepped with 3-0 subcuticular Prolene suture. Steri-Strips were applied. A sterile dressing was applied in addition to a sling. The patient was then awoken from general anesthesia and transferred to recovery room in good condition. Blood loss was estimated at 150 mL. No complications were incurred. Sponge and needle counts were correct at the end the case. Frank OLMOS assisted during the major components the case to include positioning, exposure, resection, implantation, and closure.
--- NOTE | 2020-06-23 11:08 | P.ANPRN ---
Procedure Note - Anesthesia - Nerve Block Performed Left Interscalene Single Time Out Performed: Yes Date of Procedure: 06/23/20 Procedure Start Time: 10:10 Procedure Stop Time: 10:15 Location of Patient: Phase I Indication: Acute Post-Operative Pain, Requested by Surgeon Sedation Type: Sedate with meaningful contact maintained Preparation: Sterile Prep, Sterile Dressing Position: Sitting Catheter: None Needle Types: Pajunk Needle Gauge: 21 Ultrasound used to visualize needle placement: Yes Ultrasound used to observe medication spread: Yes Injectate: 0.5% Ropivacaine (see comment for volume) (20 ml + decadron 4 mg) Blood Aspirated: No Pain Paresthesia on Injection Noted: No Resistance on Injection: Normal Image Stored and Saved: Yes Events: Uneventful and Well Tolerated
--- NOTE | 2020-06-23 12:34 | XR ---
EXAMINATION TYPE: XR shoulder limited LT DATE OF EXAM: 06/23/2020 COMPARISON: None HISTORY: Status post TSA TECHNIQUE: Single AP view of the left shoulder is performed FINDINGS: There is placement of a left shoulder prosthesis. The distal stem is partially obscured. No acute fractures are evident post shoulder replacement. Postsurgical soft tissue changes are evident. IMPRESSION: 1. No acute fracture post left shoulder replacement
[2020-06-23] MEDS: PANTOPRAZOLE 40 MG TABLET PO SCH (16:01)
[2020-06-23] MEDS: FLUoxetine HCL 20 MG CAP PO SCH (16:01)
[2020-06-23] MEDS: buPROPion SR 150 MG TABLET.ER PO SCH (16:01)
[2020-06-23] MEDS: ALPRAZolam 1 MG TAB PO SCH (21:13)
[2020-06-24] MEDS: HYDROcodone/APAP 7.5-325MG 1 EACH TAB PO PRN ×4 (02:45→20:28)
[2020-06-24] MEDS: LACTATED RINGERS 1,000 ML IV SCH (04:26)
[2020-06-24] MEDS: PANTOPRAZOLE 40 MG TABLET PO SCH (08:05)
[2020-06-24] MEDS: ATORVASTATIN 80 MG TAB PO SCH (08:05)
[2020-06-24] MEDS: FLUoxetine HCL 20 MG CAP PO SCH (08:05)
[2020-06-24] MEDS: ASPIRIN 325 MG TAB PO SCH (08:05)
[2020-06-24 09:06] LABS: Basophils # (A) 0 X 10*3/uL (0.00-0.10); Basophils % (A) 0 %; Eosinophils # (A) 0.01 X 10*3/uL (0.04-0.35); Eosinophils % (A) 0.2 %; HCT 25.9 % (37.2-46.3); HGB 8.3 g/dL (12.0-15.0); Lymphocytes # (A) 0.96 X 10*3/uL (0.90-5.00); Lymphocytes % (A) 14.9 %; MCH 28.1 pg (27.0-32.0); MCV 87.8 fL (80.0-97.0); Mean Platelet Volume 10.8 fL (9.5-12.2); Monocytes # (A) 0.59 X 10*3/uL (0.20-1.00); Monocytes % (A) 9.2 %; Neutrophils # (A) 4.85 X 10*3/uL (1.80-7.70); Neutrophils % (A) 75.2 %; Platelet Count 119 X 10*3/uL (140-440); RBC 2.95 X 10*6/uL (4.10-5.20); RDW 14.6 % (11.5-14.5); WBC 6.44 X 10*3/uL (4.50-10.00)
[2020-06-24 09:12] LABS: African American GFR (CKD) 109.1 (60.0-200.0); Anion Gap 8.9 mmol/L (4.00-12.00); BUN/Creat Ratio 14.29 Ratio (12.00-20.00); Calcium 8.6 mg/dL (8.7-10.3); Carbon Dioxide 28.1 mmol/L (21.6-31.8); Non-African American GFR(CKD) 94.2 (60.0-200.0); Potassium 4.3 mmol/L (3.5-5.5)
[2020-06-24] MEDS: buPROPion SR 150 MG TABLET.ER PO SCH (10:21)
--- NOTE | 2020-06-24 12:42 | P.PN ---
Subjective Progress Note Date: 06/24/20 Principal diagnosis: Status post left total shoulder arthroplasty patient is evaluated today at bedside, she is resting comfortably in her hospital bed. She is having a slight increase in pain in the left shoulder. She is utilizing her arm sling. She has no other acute complaints. She denies any headaches, lightheadedness, chest pain or shortness of breath. Objective - Vital Signs Vital signs: Vital Signs Temp 98.3 F 06/24/20 07:15 Pulse 86 06/24/20 07:15 Resp 18 06/24/20 07:15 BP 114/67 06/24/20 07:15 Pulse Ox 100 06/24/20 07:15 Intake & Output 06/23/20 06/24/20 06/24/20 18:59 06:59 18:59 Intake Total 1351 Output Total 150 Balance 1201 Weight 58.8 kg Intake: IV 1351 Output: Estimated Blood Loss 150 Other: Voiding Method Toilet Toilet # Voids 2 1 - Exam Left upper extremity: Incision is clean, dry and intact, the postoperative bandage was removed today at bedside. There is some ecchymosis noted on the medial aspect of the upper arm. Her sensation to light touch throughout the upper extremity is intact. Range of motion with flexion and extension was intact at the elbow, hand and wrist. She is wiggling all fingers with no difficulty. Her radial and ulnar pulses are 2+ - Labs CBC & Chem 7: 06/24/20 05:37 06/24/20 05:37 Labs: Abnormal Lab Results - Last 24 Hours (Table) 06/24/20 06/24/20 Range/Units 05:37 05:37 RBC 2.95 L (4.10-5.20) X 10*6/uL Hgb 8.3 L (12.0-15.0) g/dL Hct 25.9 L (37.2-46.3) % RDW 14.6 H (11.5-14.5) % Plt Count 119 L (140-440) X 10*3/uL Eosinophils # 0.01 L (0.04-0.35) X 10*3/uL Calcium 8.6 L (8.7-10.3) mg/dL Assessment and Plan Assessment: Postoperative day #1 status post left total shoulder arthroplasty Plan: Pain control, continue use of the oral [place] as needed, IV pain medication for breakthrough DVT prophylaxis, continue aspirin 325 mg daily Wound care instructions were discussed Continue use of arm sling Ice the shoulder often Medical recommendations Discharge planning: Plan for discharge home tomorrow Time with Patient: Less than 30
--- NOTE | 2020-06-24 15:40 | P.CONS ---
History of Present Illness - Reason for Consult Rheumatoid arthritis - History of Present Illness Patient 59-year-old female admitted for left shoulder arthroplasty excessively underwent surgery patient denied any fever chills patient is still complaining of pain in the left shoulder area passing gas did not move her bowel yet. Patient denied any headaches lightheadedness chest pain or shortness of breath. Patient denied any dysuria cough. Patient doesn't have a Asencio catheter at this time. Review of Systems REVIEW OF SYSTEMS: CONSTITUTIONAL: No fever, no malaise, no fatigue. HEENT: No recent visual problems or hearing problems. Denied any sore throat. CARDIOVASCULAR: No chest pain, orthopnea, PND, no palpitations, no syncope. PULMONARY: No shortness of breath, no cough, no hemoptysis. GASTROINTESTINAL: No diarrhea, no nausea, no vomiting, no abdominal pain. NEUROLOGICAL: No headaches, no weakness, no numbness. HEMATOLOGICAL: Denies any bleeding or petechiae. GENITOURINARY: Denies any burning micturition, frequency, or urgency. MUSCULOSKELETAL/RHEUMATOLOGICAL: As mentioned in HPI ENDOCRINE: Denies any polyuria or polydipsia. The rest of the 14-point review of systems is negative. Past Medical History Past Medical History: GERD/Reflux, Hyperlipidemia, Osteoarthritis (OA), Pneumonia, Rheumatoid Arthritis (RA) Additional Past Medical History / Comment(s): IBS (UNDER CONTROL) History of Any Multi-Drug Resistant Organisms: None Reported Past Surgical History: Appendectomy, Section, Hysterectomy, Orthopedic Surgery, Tonsillectomy Additional Past Surgical History / Comment(s): ORIF LEFT WRIST. SINUS SURGERY. BILATERAL CATARACTS WITH IMPLANTSTOTALE RIGHT SHOULDER ARTHROPLASTY, BRAIN SURGERY -SUB DURAL HEMATOMA Past Anesthesia/Blood Transfusion Reactions: No Reported Reaction Past Psychological History: Anxiety, Depression Smoking Status: Former smoker Past Alcohol Use History: Rare Additional Past Alcohol Use History / Comment(s): SMOKED FROM AGE 11 TO AGE 20, SMOKED 1PPD. Past Drug Use History: Marijuana Additional Drug Use History / Comment(s): MEDICAL CARD FOR EDIBLE MARIJUANA. INSTRUCTED TO REFRAIN FOR 24 HOURS PRIOR TO PROCEDURE - Past Family History Mother Family Medical History: No Reported History Father Family Medical History: Cancer Medications and Allergies Home Medications Medication Instructions Recorded Confirmed Type ALPRAZolam [Xanax] 1 mg PO HS 01/27/20 06/23/20 History FLUoxetine HCL [PROzac] 60 mg PO QAM 01/27/20 06/23/20 History Hydroxychloroquine Sulfate 200 mg PO SUTUTHSA 01/27/20 06/23/20 History [Plaquenil] Hydroxychloroquine Sulfate 400 mg PO MOWEFR 01/27/20 06/23/20 History [Plaquenil] Omeprazole 40 mg PO QAM 01/27/20 06/23/20 History Rosuvastatin Calcium 40 mg PO QAM 01/27/20 06/23/20 History buPROPion HCL [Wellbutrin SR] 150 mg PO QAM 01/27/20 06/23/20 History HYDROcodone/APAP 7.5-325MG [[place] 1 - 2 each PO Q6HR PRN #42 tab 01/30/20 06/23/20 Rx 7.5] Cyclobenzaprine [Flexeril] 10 mg PO HS 06/17/20 06/23/20 History Allergies Allergy/AdvReac Type Severity Reaction Status Date / Time Penicillins Allergy Rash/Hives Verified 06/17/20 16:44 Physical Exam Vitals: Vital Signs Temp Pulse Resp BP Pulse Ox 06/24/20 14:11 97.9 F 99 18 145/75 97 06/24/20 07:15 98.3 F 86 18 114/67 100 06/24/20 02:00 97.7 F 87 18 122/70 98 06/23/20 19:27 98.2 F 98 16 111/72 98 06/23/20 16:23 99 130/74 Intake and Output 06/24/20 06/24/20 06/24/20 06:59 14:59 22:59 Other: Voiding Method Toilet # Voids 1 PHYSICAL EXAMINATION: GENERAL: The patient is alert and oriented x3, not in any acute distress. Well developed, well nourished. HEENT: Pupils are round and equally reacting to light. EOMI. No scleral icterus. No conjunctival pallor. Normocephalic, atraumatic. No pharyngeal erythema. No thyromegaly. CARDIOVASCULAR: S1 and S2 present. No murmurs, rubs, or gallops. PULMONARY: Chest is clear to auscultation, no wheezing or crackles. ABDOMEN: Soft, nontender, nondistended, normoactive bowel sounds. No palpable organomegaly. MUSCULOSKELETAL: No joint swelling or deformity. EXTREMITIES: Left arm sling NEUROLOGICAL: Gross neurological examination did not reveal any focal deficits. SKIN: No rashes. Results CBC & Chem 7: 06/24/20 05:37 06/24/20 05:37 Labs: Abnormal Lab Results - Last 24 Hours (Table) 06/24/20 06/24/20 Range/Units 05:37 05:37 RBC 2.95 L (4.10-5.20) X 10*6/uL Hgb 8.3 L (12.0-15.0) g/dL Hct 25.9 L (37.2-46.3) % RDW 14.6 H (11.5-14.5) % Plt Count 119 L (140-440) X 10*3/uL Eosinophils # 0.01 L (0.04-0.35) X 10*3/uL Calcium 8.6 L (8.7-10.3) mg/dL Assessment and Plan Plan: -Left shoulder arthroplasty: Pain management as per primary service patient is on due to prophylaxis with aspirin 325 mg daily. Patient has a left arm sling -Rheumatoid arthritis patient will be resumed on plaque renal -Gastroesophageal reflux disease -Hyperlipidemia - depression patient will be resumed on her home medications
[2020-06-24] MEDS ORDERED: HYDROXYCHLOROQUINE SULFATE 200 MG TAB PO SCH (15:45)
[2020-06-24] MEDS: ALPRAZolam 1 MG TAB PO SCH (20:29)
[2020-06-25] MEDS: HYDROcodone/APAP 7.5-325MG 1 EACH TAB PO PRN ×2 (01:16→06:54)
[2020-06-25] MEDS: LACTATED RINGERS 1,000 ML IV SCH (06:24)
[2020-06-25] MEDS ORDERED: HYDROXYCHLOROQUINE SULFATE 200 MG TAB PO SCH (09:00)
[2020-06-25] MEDS: buPROPion SR 150 MG TABLET.ER PO SCH (09:02)
[2020-06-25] MEDS: PANTOPRAZOLE 40 MG TABLET PO SCH (09:02)
[2020-06-25] MEDS: FLUoxetine HCL 20 MG CAP PO SCH (09:03)
[2020-06-25] MEDS: ATORVASTATIN 80 MG TAB PO SCH (09:03)
[2020-06-25] MEDS: ASPIRIN 325 MG TAB PO SCH (09:03)
[2020-06-25 09:55] VITALS: BP 141/82; PULSE 104; RESP 16; TEMP 98.3
--- NOTE | 2020-06-25 10:53 | P.PN ---
Subjective Progress Note Date: 06/25/20 Principal diagnosis: Status post left total shoulder arthroplasty patient is evaluated today at bedside, she is resting comfortably in her hospital bed. Her pain is better today. She has no other acute complaints. She denies any headaches, lightheadedness, chest pain or shortness of breath. Objective - Vital Signs Vital signs: Vital Signs Temp 98.3 F 06/25/20 08:30 Pulse 104 H 06/25/20 08:30 Resp 16 06/25/20 08:30 BP 141/82 06/25/20 08:30 Pulse Ox 97 06/25/20 08:30 Intake & Output 06/24/20 06/25/20 06/25/20 18:59 06:59 18:59 Other: Voiding Method Toilet Toilet # Voids 4 1 - Exam Left upper extremity: Incision is clean, dry and intact, the postoperative bandage was removed today at bedside. There is some ecchymosis noted on the medial aspect of the upper arm. Her sensation to light touch throughout the upper extremity is intact. Range of motion with flexion and extension was intact at the elbow, hand and wrist. She is wiggling all fingers with no difficulty. Her radial and ulnar pulses are 2+ - Labs CBC & Chem 7: 06/24/20 05:37 06/24/20 05:37 Assessment and Plan Assessment: Postoperative day #1 status post left total shoulder arthroplasty Plan: Pain control, plan for discharge on [place] 7.5 mg/325 mg DVT prophylaxis, continue aspirin 325 mg daily for 2 weeks Wound care instructions were discussed Continue use of arm sling Ice the shoulder often Medical recommendations Discharge planning: Discharge home today Time with Patient: Less than 30
--- NOTE | 2020-06-25 10:59 | P.DS ---
Providers Date of admission: 06/23/20 06:17 Expected date of discharge: 06/25/20 Attending physician: Dick Gaines Consults: 06/23/20 10:04 Consult Physician Routine Consulting Provider: Michaela Keller Consult Reason/Comments: Medical Management Do you want consulting provider notified?: Yes Primary care physician: Patricia Grimes DO Hospital Course: Date of admission: 06/23/2020 Date of discharge: 06/25/2020 Admission diagnosis: Status post left total shoulder arthroplasty Discharge diagnosis: Same Attending physician: Dr. Gaines Surgical procedures: left total shoulder arthroplasty Brief history: Patient is a 59-year-old female with a history of progressive primary left shoulder osteoarthritis. At this point patient has failed conservative treatment measures and has opted to proceed with a elective left total shoulder arthroplasty. Hospital course: Details of patient's surgery can be found in operative report. Patient tolerated the procedure well and was subsequently transported to orthopedic floor. Patient's orthopeidc and medical care was provided daily. Patient had daily laboratory tests performed for evaluation of overall blood counts. Patient had daily physical therapy to include strengthening range of motion as well as education with walker ambulation. Patient was treated with aspirin for their postoperative DVT prophylaxis during their inpatient stay. Patient was noted to have a relatively uneventful postoperative course. Patient reported satisfactory pain control with oral pain medications by postoperative day 2. Patient showed satisfactory progress with physical therapy. Patient moved steadily through the program and had no difficulty meeting the goals by postoperative day 2. Given patient's otherwise satisfactory course and having met physical therapy goals, plan is to discharge patient home on postoperative day 2. Discharge condition/disposition: Patient will be discharged home in stable condition. Discharge medications: Instructions are given on resumption of patient's normal daily medications per primary care recommendation, in addition patient will be prescribed [place] 7.5 mg/325 mg, aspirin 325 mg. Discharge instructions: 1. Wound care and infection precautions, keep incision dry and covered while showering, no lotions, creams, moisturizers. No soaking, tubs, pools, hottubs. Do not scrub over the incision. 2. Utilize arm sling 3. Ice and elevate when necessary. Do not exceed 20 minutes per hour with ice pack. 4. Utilize compression sleeve until seen at first follow up appointment. 7. Pain meds and anticoagulants per prescription. 8. Pain medication has potential to cause constipation. Increase oral fluid and fiber intake. Contact primary care provider if you have not had a bowel movement within 48 hours after discharge 9. No anti-inflammatory medication until discussed at first post operative visit, this including Motrin, Aleve, Mobic, Diclofenac 10. Follow up in office at 2 weeks postop with Frank Moss PA-C/Long Mustafa 11. Follow up with your primary care doctor 7-10 days after discharge. 12. Contact [facility] with any questions, . Procedures: Left total shoulder arthroplasty Patient Condition at Discharge: Good Plan - Discharge Summary Discharge Rx Participant: Yes New Discharge Prescriptions: New Aspirin 325 mg PO DAILY #14 tab HYDROcodone/APAP 7.5-325MG [[place] 7.5] 1 - 2 each PO Q6HR PRN #42 tab PRN Reason: Pain No Action Rosuvastatin Calcium 40 mg PO QAM buPROPion HCL [Wellbutrin SR] 150 mg PO QAM ALPRAZolam [Xanax] 1 mg PO HS Hydroxychloroquine Sulfate [Plaquenil] 200 mg PO SUTUTHSA Hydroxychloroquine Sulfate [Plaquenil] 400 mg PO MOWEFR Omeprazole 40 mg PO QAM FLUoxetine HCL [PROzac] 60 mg PO QAM Cyclobenzaprine [Flexeril] 10 mg PO HS Discharge Medication List ALPRAZolam [Xanax] 1 mg PO HS 01/27/20 [History] FLUoxetine HCL [PROzac] 60 mg PO QAM 01/27/20 [History] Hydroxychloroquine Sulfate [Plaquenil] 200 mg PO SUTUTHSA 01/27/20 [History] Hydroxychloroquine Sulfate [Plaquenil] 400 mg PO MOWEFR 01/27/20 [History] Omeprazole 40 mg PO QAM 01/27/20 [History] Rosuvastatin Calcium 40 mg PO QAM 01/27/20 [History] buPROPion HCL [Wellbutrin SR] 150 mg PO QAM 01/27/20 [History] Cyclobenzaprine [Flexeril] 10 mg PO HS 06/17/20 [History] Aspirin 325 mg PO DAILY #14 tab 06/25/20 [Rx] HYDROcodone/APAP 7.5-325MG [[place] 7.5] 1 - 2 each PO Q6HR PRN #42 tab 06/25/20 [Rx] Follow up Appointment(s)/Referral(s): Patricia Grimes DO [Primary Care Provider] - 1 Week Grzegorz Moss PAC [PHYSICIAN VALUER] - 07/08/20 3:30 pm Activity/Diet/Wound Care/Special Instructions: Orthopedic Discharge Instructions: 1. Wound care and infection precautions, [keep incision dry and covered while showering], no lotions, creams, moisturizers. No soaking, pools, hot tubs. Do not scrub over incision. 2. Utilize arm sling 3. Ice and elevate when necessary. Do not exceed 20 minutes per hour with ice pack. 4. Utilize compression sleeve until seen at first follow up appointment. 5. Pain meds and anticoagulants per prescription. 6. Pain medication has potential to cause constipation. Increase oral fluid and fiber intake. Contact primary care provider if you have not had a bowel movement within 48 hours after discharge. 7. No anti-inflammatory medication until discussed at first post operative visit, this including Motrin, Aleve, Mobic, Diclofenac 8. Follow up in office at 2 weeks postop with Frank Moss PA-C/Long Angulo PA-C 9. Follow up with your primary care doctor 7-10 days after discharge. 10. Contact [facility] with any questions, . Discharge Disposition: HOME SELF-CARE
--- NOTE | 2020-06-25 12:07 | P.PN ---
Subjective Progress Note Date: 06/25/20 - Reason for Consult Rheumatoid arthritis - History of Present Illness Patient 59-year-old female admitted for left shoulder arthroplasty excessively underwent surgery patient denied any fever chills patient is still complaining of pain in the left shoulder area passing gas did not move her bowel yet. Patient denied any headaches lightheadedness chest pain or shortness of breath. Patient denied any dysuria cough. Patient doesn't have a Asencio catheter at this time. 06/25/2020 Patient is seen and evaluated this morning but no acute overnight issues. Patient is status post left shoulder arthroplasty. Appropriate home medications have been resumed. She is tolerating diet with no reports of nausea or vomiting noted. Patient denies a bowel movement this time but states she is passing gas. Patient does have a sling of the left upper extremity. Review of systems: Constitutional: No reports of fatigue, fever, or chills Cardiovascular: No reports of chest pain or palpitations Respiratory: No reports of shortness of breath or cough GI: No reports of nausea, vomiting, or diarrhea : No reports of dysuria or retention Neurovascular: No reports of weakness or numbness All medications have been reviewed Objective - Vital Signs Vital signs: Vital Signs Temp 97.8 F 06/25/20 01:24 Pulse 80 06/25/20 01:24 Resp 20 06/25/20 01:24 BP 121/66 06/25/20 01:24 Pulse Ox 98 06/25/20 01:24 Intake & Output 06/24/20 06/25/20 06/25/20 18:59 06:59 18:59 Other: Voiding Method Toilet # Voids 4 1 - Exam GENERAL: The patient is alert and oriented x3, not in any acute distress. Well developed, well nourished. HEENT: Pupils are round and equally reacting to light. EOMI. No scleral icterus. No conjunctival pallor. Normocephalic, atraumatic. No pharyngeal erythema. No thyromegaly. CARDIOVASCULAR: S1 and S2 present. No murmurs, rubs, or gallops. PULMONARY: Chest is clear to auscultation, no wheezing or crackles. ABDOMEN: Soft, nontender, nondistended, normoactive bowel sounds. No palpable organomegaly. MUSCULOSKELETAL: No joint swelling or deformity. EXTREMITIES: Left arm sling, some discomfort with movement although has improved since yesterday NEUROLOGICAL: Gross neurological examination did not reveal any focal deficits. SKIN: No rashes. - Labs CBC & Chem 7: 06/24/20 05:37 06/24/20 05:37 Assessment and Plan Assessment: -Left shoulder arthroplasty: Pain management as per primary service, left arm sling noted -Rheumatoid arthritis patient will be resumed on plaquanil -Gastroesophageal reflux disease -Hyperlipidemia -depression patient will be resumed on her home medications -DVT prophylaxis with 325 mg of aspirin daily Plan: Continue with current medications. Appropriate home medications have been resumed. Pain management per primary service. Patient reports the passing gas although no bowel movement at this time. Patient denies any abdominal discomfort. Instructed the patient to increase activity as tolerated. Will continue to follow during hospitalization. Patient states she is being discharged today.
== END 2020-06-25 12:46 | disposition home or self-care (01) | DRG 483 ==
LOC: 2ORMAIN 06:17 → 4SSUR 12:09 → 6PED 06-25 00:26
PROVIDERS: ADMIT Orthopaedic Surgery; ATTEND Orthopaedic Surgery
PROC: 0RRK0JZ Replacement of Left Shoulder Joint with Synthetic Substitute, Open Approach (ICD-10-PCS; principal; 2020-06-23 07:45)
DX: M19.012 Primary osteoarthritis, left shoulder (principal); M06.9 Rheumatoid arthritis, unspecified; K21.9 Gastro-esophageal reflux disease without esophagitis; I10 Essential (primary) hypertension; F32.9 Major depressive disorder, single episode, unspecified; E78.5 Hyperlipidemia, unspecified; K58.9 Irritable bowel syndrome, unspecified; F41.9 Anxiety disorder, unspecified; Z79.899 Other long term (current) drug therapy; Z90.710 Acquired absence of both cervix and uterus; Z90.49 Acquired absence of other specified parts of digestive tract; Z87.820 Personal history of traumatic brain injury; Z96.611 Presence of right artificial shoulder joint; Z87.891 Personal history of nicotine dependence; Z87.01 Personal history of pneumonia (recurrent); Z98.42 Cataract extraction status, left eye; Z98.41 Cataract extraction status, right eye; Z98.890 Other specified postprocedural states; Z96.1 Presence of intraocular lens; Z88.0 Allergy status to penicillin; Z80.9 Family history of malignant neoplasm, unspecified
CPT/HCPCS: 64415; 76942; 80048; 85025; 88300

== ENCOUNTER → 2021-02-23 | Outpatient (CLI) | payer MEDICARE, OTHER ==
--- NOTE | 2021-02-23 12:59 | XR ---
EXAMINATION TYPE: XR lumbar spine 2 or 3V DATE OF EXAM: 02/23/2021 CLINICAL HISTORY: Low back pain down into both legs. TECHNIQUE: Frontal and lateral images of the lumbar spine are obtained. COMPARISON: None FINDINGS: There are 5 lumbar type vertebral bodies identified assuming hypoplastic right T12 rib. T he lumbar spine shows straightened alignment without evidence of acute fracture or dislocation. Verte bral body heights are within normal limits. Moderate multilevel disc space narrowing with mild to mod erate multilevel anterior and lateral spurring. Multilevel vacuum disc phenomenon with findings most prominent at L4-L5 level where there is endplate sclerosis. Multilevel facet arthropathy mid to lowe r lumbar spine. The overlying soft tissue appears unremarkable. IMPRESSION: As above.
--- NOTE | 2021-02-23 13:04 | XR ---
EXAMINATION TYPE: XR Hip LT and AP Pelvis DATE OF EXAM: 02/23/2021 COMPARISON: NONE HISTORY: Bilateral hip pain extending down left leg TECHNIQUE: A single AP view of the pelvis is obtained. Two views of the left hip are obtained. FINDINGS: There is no acute fracture/dislocation evident in the pelvis. The sacroiliac joints appea r symmetric and within normal limits. Pubic symphysis is intact. Right hip shows moderate axial joint space loss and moderate peripheral acetabular spurring The overlying soft tissue appears unremarkab le. Two views of left hip show no acute fracture or dislocation. No focal lytic or sclerotic lesion seen in the proximal left femur. There is severe axial joint space loss with [id number] formation causi ng joint space sclerosis and subchondral cystic change. Moderate peripheral acetabular spurring. Slig ht lateral positioning or subluxation of the femoral head relative to the acetabulum. There is beginn ing loss of superior spherical shape or fragmentation thought present. The overlying soft tissue is u nremarkable. IMPRESSION: As above. Advanced left hip joint arthropathy noted. Advise orthopedic referral.
== END | disposition home or self-care (01) ==
LOC: RADXRMAIN 12:09
PROVIDERS: ATTEND Family Medicine
DX: M16.12 Unilateral primary osteoarthritis, left hip (principal); M47.26 Other spondylosis with radiculopathy, lumbar region; M51.16 Intervertebral disc disorders with radiculopathy, lumbar region
CPT/HCPCS: 72100; 73502

== ENCOUNTER → 2021-09-13 | Outpatient (CLI) | payer MEDICARE, OTHER | END | disposition home or self-care (01) | LOC: LABPAT 16:16 | PROVIDERS: ATTEND Orthopaedic Surgery | DX: Z01.812 Encounter for preprocedural laboratory examination (principal); Z22.322 Carrier or suspected carrier of Methicillin resistant Staphylococcus aureus; M16.12 Unilateral primary osteoarthritis, left hip | CPT/HCPCS: 87070 ==

== ENCOUNTER → 2021-09-14 | Outpatient (CLI) | payer MEDICARE, OTHER ==
[2021-09-14 15:43] LABS: Partial Thromboplastin Time 24.6 sec (22.0-30.0); Prothrombin Time 10.8 sec (9.0-12.0)
[2021-09-14 22:37] LABS: African American GFR (CKD) 99.3 (60.0-200.0); Anion Gap 10.6 mmol/L (10.00-18.00); BUN/Creat Ratio 10.09 Ratio (12.00-20.00); Blood Urea Nitrogen 7.6 mg/dL (9.0-27.0); Calcium 9.2 mg/dL (8.7-10.3); Carbon Dioxide 25.7 mmol/L (20.0-27.5); Non-African American GFR(CKD) 85.7 (60.0-200.0); Potassium 4.3 mmol/L (3.5-5.5)
== END | disposition home or self-care (01) ==
LOC: LABPAT 14:47
PROVIDERS: ATTEND Family Medicine
DX: Z01.818 Encounter for other preprocedural examination (principal)
CPT/HCPCS: 80048; 85610; 85730; 93005

== ENCOUNTER 2021-09-21 10:17 | Inpatient (IN) | payer MEDICARE, OTHER ==
[2021-09-17 09:36] VITALS: BMI 23.2
--- NOTE | 2021-09-20 12:55 | HP ---
HISTORY AND PHYSICAL CHIEF COMPLAINT: Left hip pain. HISTORY OF PRESENT ILLNESS: The patient is a 61-year-old female who presents with progressive left hip pain for the past several years, worsening recently. She notes groin and thigh pain with any weightbearing activities. She is also having significant night symptoms. She notes she has been limping. She has tried medications in addition to other pain modalities without much relief. PAST MEDICAL HISTORY: Significant for arthritis, depression, subdural hematoma, gastroesophageal reflux disease, hypertension, and depression. PAST SURGICAL HISTORY: Significant for bilateral total shoulder arthroplasty. CURRENT MEDICATIONS: Omeprazole, Prozac, Topamax, Wellbutrin, and Mobic. ALLERGIES: PENICILLIN. FAMILY HISTORY: Significant for cancer. SOCIAL HISTORY: Significant for previous tobacco use. REVIEW OF SYSTEMS: 16-point review of systems otherwise is reviewed and is noncontributory. PHYSICAL EXAMINATION: On examination, the patient is approximately 5 foot 1 inch, 125 pounds of mesomorphic habitus. HEENT exam is nonfocal. NECK is supple. Passive motion left hip, flexion 90 degrees, external rotation with hip flexed 45 degrees, internal rotation -10 degrees with pain. She does have shortening of the left lower extremity compared to the right. She has an antalgic gait pattern. Her distal neurovascular exam appears intact in the left lower extremity. AP and lateral views left hip obtained in the office show severe osteoarthrosis with [id number] changes and subchondral sclerosis. Cystic changes along the central femoral head are noted. IMPRESSION: Left hip severe osteoarthrosis. RECOMMENDATIONS: I talked to the patient at length regarding her condition along with treatment options. At this point, she is quite limited because of pain despite previous conservative measures. After thorough discussion, she opts to proceed with surgery. We will plan to proceed with left total hip arthroplasty utilizing the anterior approach. We will likely institute DVT prophylaxis postoperatively. Risks and benefits were discussed at length in layman's terms. MMODL / IJN: [id number] /
[~2021-09-21 10:17] MED LIST changes: -TRANEXAMIC ACID 1,000 MG in SODIUM CHLORIDE 0.9% 100 ML IVPB PRN; +TRANEXAMIC ACID IN NACL,ISO-OS 1,000 MG in SALINE 1 100ML.BAG IVPB PRN
[2021-09-21] MEDS: LACTATED RINGERS 1,000 ML IV SCH (11:21)
[2021-09-21 11:33] LABS: HCT 37.9 % (34.0-46.0); HGB 12.2 gm/dL (11.4-16.0); MCH 27.7 pg (25.0-35.0); MCHC 32.2 g/dL (31.0-37.0); MCV 86.1 fL (80.0-100.0); Mean Platelet Volume 7.4; Platelet Count 182 k/uL (150-450); RDW 15.2 % (11.5-15.5)
[2021-09-21] MEDS ORDERED: PROPOFOL 10 MG/ML 20 ML VIAL IV ONE (12:20)
[2021-09-21] MEDS ORDERED: TRANEXAMIC ACID IN NACL,ISO-OS 1,000 MG/100 ML BAG ONE (12:20)
[2021-09-21] MEDS ORDERED: MIDAZOLAM 2 MG/2 ML VIAL ONE (12:20)
[2021-09-21] MEDS ORDERED: fentaNYL (PF) 50 MCG/ML 2 ML AMP ONE (12:20)
[2021-09-21] MEDS ORDERED: CLINDAMYCIN 600 MG in SODIUM CHLORIDE 0.9% 1,000 ML IRRIGATION ONE (13:00)
[2021-09-21] MEDS ORDERED: NALOXONE 0.4 MG/ML 1 ML VIAL IV PRN (14:14)
[2021-09-21] MEDS ORDERED: HYDROcodone/APAP 5-325MG 1 EACH TAB PO PRN (14:14)
--- NOTE | 2021-09-21 14:36 | P.OP ---
Date of Procedure: 09/21/21 Preoperative Diagnosis: Severe left hip severe osteoarthrosis Postoperative Diagnosis: Same Procedure(s) Performed: Left total hip arthroplastyanterior approachpress-fit Implants: Depuy Corail size 11 collared 125 press-fit femoral stem, 54 mm [place] acetabular shell with neutral polyethylene liner, 36+5 ceramic femoral head. Anesthesia: spinal Surgeon: Dick Gaines [facility] Specialist #1: Long Angulo Estimated Blood Loss (ml): 100 Pathology: other (Femoral head) Condition: stable Disposition: PACU Indications for Procedure: The patient is a 61-year-old female presents with progressive left hip pain secondary to osteoarthrosis despite conservative measures. A discussion of the risks and benefits of operative intervention versus continued conservative measures was made with patient. She opted to proceed with surgery. Operative risks to include infection, neurovascular injury, development of blood clots, leg length discrepancy, fracture, possible instability need for subsequent procedures was discussed. Operative Findings: Same Description of Procedure: The patient was brought to the operating room, and after induction of spinal anesthesia was placed supine on the June table. Positioning was checked with fluoroscopy. The left hip was then prepped and draped in a normal fashion. A 12 cm incision was then made starting 2 fingerbreadths distal and 3 finger breaths posterior to the ASIS in line with the proximal femur. The skin was incised sharply. Subcutaneous tissues were divided sharply. Electrocautery was used for hemostasis. The fascia was split in line with skin incision. The interval between the sartorius and tensor fascia demi was then bluntly developed. The posterior fascia was opened with electrocautery. The lateral circumflex vessels were identified and cauterized prior to sectioning. A retractor was placed along the superior femoral neck as well as the anterior acetabular rim. A wide capsulotomy was performed. The neck cut was then made at a 45 angle to the shaft approximately 1 1/2 cm above the level of the lesser trochanter. The head was extracted. Attention was then paid towards preparing the acetabular. Anterior and posterior retractors were placed. The remaining capsular labral tissue sharply debrided clearly defining the acetabular margins. I began reaming with a 47 mm reamer taking care to initial ly medialize then reaming at 45 of abduction and 20 of anteversion. Sequential reaming is performed up to 53 mm. A trial 54 mm acetabular shell was inserted in the same orientation and was fully seated. There was good rim fit and stability. Positioning was checked with fluoroscopy. The final 54 mm acetabular shell was inserted again at 45 of abduction and 20 of anteversion. This was fully seated. There was good rim fit and stability. Again fluoroscopy was used to check the adequacy of placement. A neutral polyethylene liner was gently impacted. Care was taken to avoid any soft tissue interposition. Pulsatile lavage was utilized. Attention was then paid towards preparing the proximal femur. The central region was cleared of soft tissue. A canal finder was used to find the femoral canal. Sequential broaching was performed up to size 11 taking care to lateralize proximally. A calcar mill was used to fashion the medial calcar. There was good rotational stability. A 125 neck along with a 36 mm +1.5 head was placed. The hip was gently reduced. Fluoroscopy was used to check the adequacy of positioning along with leg lengths. I felt both were good. The hip was gently dislocated. The trial components were removed. The final size 11 collared standard press-fit femoral stem was inserted parallel to the posterior cortex. This was fully seated and there was good rotational stability. A 36 mm +1.5 ceramic femoral head was placed. This was gently impacted. The hip was then gently reduced. Final fluoroscopic view showed adequate placement implant along with temple of leg length. Stability was checked with 80 of external rotation and 60 of extension of the right hip. The wound was irrigated with sterile lavage. The fascia was closed with running 0 Vicryl suture. There was minimal drainage therefore a deep drain was not placed. The second dose of IV TXA was given. The subcutaneous tissues were reapproximated interrupted 2-0 Vicryl sutures. The skin was reapproximated with 3-0 subcuticular strata fix suture. Skin tape and adhesive was applied. A sterile dressing was applied. The patient was then awoken from sedation and transferred to recovery room in good condition. Blood loss was estimated at 100 mL. No complications were incurred. Sponge and needle counts were correct at the end of the case. Long OLMOS assisted during the major components is case to include exposure, bone resection, implantation, and closure.
--- NOTE | 2021-09-21 14:55 | XR ---
EXAMINATION TYPE: XR Hip Limited LT DATE OF EXAM: 09/21/2021 COMPARISON: X-ray dated 08/06/2021 INDICATION: Postoperative TECHNIQUE: One AP view of the left hip. FINDINGS: Interval left total hip arthroplasty. No gross hardware complication with good alignment of the prost hesis. Acute postoperative changes with surrounding soft tissue swelling and gas. Degenerative change s of the lower lumbar spine. IMPRESSION: Acute postoperative changes as described above.
--- NOTE | 2021-09-21 14:58 | XR ---
EXAMINATION TYPE: XR Hip Limited LT, FL guidance operating room DATE OF EXAM: 09/21/2021 CLINICAL HISTORY: Left hip arthroplasty TECHNIQUE: OR fluoroscopic guided surgery COMPARISON: X-ray dated 08/06/2021 FINDINGS: Fluoroscopic guidance was provided during the procedure. A total of 18 seconds of fluorosc opic time was utilized during the procedure and 1 spot image was acquired. IMPRESSION: As Above.
[2021-09-21] MEDS: HYDROmorphone 0.5 MG/0.5 ML SYRINGE IVP PRN ×3 (15:20→22:05)
[2021-09-21] MEDS: HYDROcodone/APAP 7.5-325MG 1 EACH TAB PO PRN (17:59)
[2021-09-21] MEDS: SENNOSIDES-DOCUSATE SODIUM 1 EACH TAB PO SCH (23:17)
[2021-09-22] MEDS: HYDROcodone/APAP 7.5-325MG 1 EACH TAB PO PRN ×3 (05:50→21:01)
[2021-09-22] MEDS: HYDROmorphone 0.5 MG/0.5 ML SYRINGE IVP PRN ×2 (05:51→16:56)
[2021-09-22] MEDS: RIVAROXABAN 10 MG TAB PO SCH (07:40)
[2021-09-22 10:00] LABS: Basophils # (A) 0.01 X 10*3/uL (0.00-0.10); Basophils % (A) 0.1 %; Eosinophils # (A) 0.01 X 10*3/uL (0.04-0.35); Eosinophils % (A) 0.1 %; HCT 25.6 % (37.2-46.3); Immature Grans, Automated 0.4 %; Lymphocytes # (A) 0.76 X 10*3/uL (0.90-5.00); MCH 27.1 pg (27.0-32.0); MCHC 31.3 g/dL (32.0-37.0); MCV 86.8 fL (80.0-97.0); Mean Platelet Volume 10.8 fL (9.5-12.2); Monocytes # (A) 0.76 X 10*3/uL (0.20-1.00); NRBC Per 100 WBC 0 /100 WBCS (0.0-0.0); Neutrophils # (A) 6.06 X 10*3/uL (1.80-7.70); Neutrophils % (A) 79.4 %; Platelet Count 132 X 10*3/uL (140-440); RBC 2.95 X 10*6/uL (4.10-5.20); RDW 14.7 % (11.5-14.5); WBC 7.63 X 10*3/uL (4.50-10.00)
[2021-09-22] MEDS: LACTATED RINGERS 1,000 ML IV SCH (10:47)
--- NOTE | 2021-09-22 11:34 | P.PN ---
Subjective Progress Note Date: 09/22/21 Principal diagnosis: Status post direct anterior left total hip arthroplasty Patient evaluated at bedside, she is resting in her hospital chair. She appears to be no acute distress. Patient did note increasing pain with physical therapy. Patient does live alone. Patient would like to see 1 additional night before being discharged to home. She currently has no headaches, l ightheadedness, chest pain or shortness of breath. Objective - Vital Signs Vital signs: Vital Signs Temp 97.6 F 09/22/21 08:00 Pulse 87 09/22/21 08:00 Resp 16 09/22/21 08:00 BP 106/62 09/22/21 08:00 Pulse Ox 99 09/22/21 08:00 FiO2 Intake & Output 09/21/21 09/22/21 09/22/21 18:59 06:59 18:59 Intake Total 1431 Output Total 100 Balance 1331 Weight 54.5 kg Intake: IV 951 Oral 480 Output: Urine 0 Estimated Blood Loss 100 Other: # Voids 1 - Exam Left lower extremity: Incision is clean, dry, and intact. The exofin fusion tape is in good condition. There is minimal soft tissue swelling and ecchymosis surrounding the medial and lateral aspects of the incision. Calf is soft, no tenderness with p alpation. Plantar flexion, dorsiflexion, EHL, FHL are intact. Sensory exam to light touch throughout the extremity is intact, dorsal pedis pulses 2+. - Labs CBC & Chem 7: 09/22/21 05:09 Labs: Abnormal Lab Results - Last 24 Hours (Table) 09/22/21 Range/Units 05:09 RBC 2.95 L (4.10-5.20) X 10*6/uL Hgb 8.0 L (12.0-15.0) g/dL Hct 25.6 L (37.2-46.3) % MCHC 31.3 L (32.0-37.0) g/dL RDW 14.7 H (11.5-14.5) % Plt Count 132 L (140-440) X 10*3/uL Lymphocytes # 0.76 L (0.90-5.00) X 10*3/uL Eosinophils # 0.01 L (0.04-0.35) X 10*3/uL Assessment and Plan Assessment: Postoperative day #1 status post right anterior left total hip arthroplasty Plan: Pain control, continue with current medication. Planning for discharge home on oral medication DVT prophylaxis, continue with current medication. Plan is to discharge home on aspirin 81 mg twice a day for 30 days Wound care instructions discussed, this including showering instructions Encourage incentive spirometer Continue work with physical therapy Medical recommendations Discharge planning: We'll keep patient one additional day, plan for discharge home on 09/23/2021 Time with Patient: Less than 30
[2021-09-22] MEDS: ATORVASTATIN 80 MG TAB PO SCH (12:54)
[2021-09-22] MEDS: buPROPion SR 150 MG TABLET.ER PO SCH (12:55)
[2021-09-22] MEDS: FLUoxetine HCL 20 MG CAP PO SCH (12:55)
--- NOTE | 2021-09-22 14:23 | P.CONS ---
History of Present Illness - Reason for Consult Consult date: 09/22/21 Medical management, postop left hip arthroplasty - History of Present Illness This is a pleasant 61-year-old female who was admitted under orthopedic services for severe osteoarthritis of the left hip and is status post tract anterior approach of left total hip arthroplasty postop day #1. Patient just started working with physical therapy and unable to tolerate much due to pain and plan is for patient to go home with family for a couple days and have outpatient rehab arranged. Patient follows with Dr. Grimes in the outpatient setting and has a past medical history of gastroesophageal reflux disease, hyperlipidemia, osteoarthritis, rheumatoid arthritis, ADD/ADHD, anxiety and depression with some memory impairment. Patient is a former history of smoking and does use medical marijuana and rarely drinks alcohol and denies any other illicit drug use. Appropriate home medications have been resumed and patient was maintained on IV hydration which will be discontinued. Patient is eating and drinking and report s passing gas and urinating with no problems. Patient denies any chest pain, shortness of breath, or palpitations. Patient is afebrile. WBC within normal limits at 7.63 and hemoglobin is 8.0. No active bleeding noted. Left surgical hip dressing was changed and is currently dry and intact with positive pedal pulses, cap refill less than 3, and denies any tingling or numbness of the lower extremities. REVIEW OF SYSTEMS: CONSTITUTIONAL: No fever, no malaise, no fatigue. HEENT: No recent visual problems or hearing problems. Denied any sore throat. CARDIOVASCULAR: No chest pain, orthopnea, PND, no palpitations, no syncope. PULMONARY: No shortness of breath, no cough, no hemoptysis. GASTROINTESTINAL: No diarrhea, no nausea, no vomiting, no abdominal pain. NEUROLOGICAL: No headaches, HEMATOLOGICAL: Denies any bleeding or petechiae. GENITOURINARY: Denies any burning micturition, frequency, or urgency. MUSCULOSKELETAL/RHEUMATOLOGICAL: Reports left hip joint pain, no reports of swe lling, reports some generalized weakness ENDOCRINE: Denies any polyuria or polydipsia. The rest of the 14-point review of systems is negative. Active Medications Hydrocodone Bitart/Acetaminophen (Hydrocodone/Apap 5-325mg 1 Each Tab) 1 each PO Q6HR PRN PRN Reason: Pain Scale 1 to 5 Stop: 10/21/21 14:15 Hydrocodone Bitart/Acetaminophen (Hydrocodone/Apap 7.5-325mg 1 Each Tab) 1 each PO Q6H PRN PRN Reason: Pain Scale 6 to 10 Stop: 10/21/21 14:15 Last Admin: 09/22/21 05:50 Dose: 1 each Alprazolam (Alprazolam 1 Mg Tab) 1 mg PO HS PRN PRN Reason: Anxiety Atorvastatin Calcium (Atorvastatin 80 Mg Tab) 80 mg PO [facility] Last Admin: 09/22/21 12:54 Dose: 80 mg Bupropion HCl (Bupropion Sr 150 Mg Tablet.Er) 150 mg PO [facility] Last Admin: 09/22/21 12:55 Dose: 150 mg Ferrous Sulfate (Ferrous Sulfate 325 Mg Tab) 325 mg PO BID-W/MEALS [facility] Fluoxetine HCl (Fluoxetine Hcl 20 Mg Cap) 60 mg PO [facility] Last Admin: 09/22/21 12:55 Dose: 60 mg Hydromorphone HCl (Hydromorphone 0.5 Mg/0.5 Ml Syringe) 0.5 mg IVP Q3HR PRN PRN Reason: Pain Scale 4 to 6 Stop: 10/21/21 14:15 Last Admin: 09/22/21 05:51 Dose: 0.5 mg Hydromorphone HCl (Hydromorphone 1 Mg/Ml 1 Ml Syringe) 1 mg IVP Q3HR PRN PRN Reason: Pain Scale 7 to 10 Stop: 10/21/21 14:15 Lactated Ringer's (Lactated Ringers) 1,000 mls @ 20 mls/hr IV .Q24H [facility] Stop: 10/21/21 05:57 Last Admin: 09/22/21 10:47 Dose: Not Given Lidocaine HCl (Lidocaine 1% (10mg/Ml) For Iv Start) 0.1 ml INTRADERMA PER PROTOCOL PRN PRN Reason: IV Start Stop: 10/21/21 05:57 Last Admin: 09/21/21 11:21 Dose: 0.1 ml Naloxone HCl (Naloxone 0.4 Mg/Ml 1 Ml Vial) 0.2 mg IV Q2M PRN PRN Reason: Opioid Reversal Stop: 10/21/21 14:15 Rivaroxaban (Rivaroxaban 10 Mg Tab) 10 mg PO DAILY [facility]; Protocol Stop: 10/27/21 09:01 Last Admin: 09/22/21 07:40 Dose: 10 mg Senna/Docusate Sodium (Sennosides-Docusate Sodium 1 Each Tab) 2 each PO HS [facility] Stop: 10/21/21 21:01 Last Admin: 09/21/21 23:17 Dose: 2 each PHYSICAL EXAMINATION: GENERAL: The patient is alert and oriented x3, not in any acute distress. Well developed, well nourished. HEENT: Pupils are round and equally reacting to light. EOMI. No scleral icterus. No conjunctival pallor. Normocephalic, atraumatic. No pharyngeal erythema. No thyromegaly. Anterior neck swelling CARDIOVASCULAR: S1 and S2 present. No murmurs, rubs, or gallops. PULMONARY: Chest is clear to auscultation, no wheezing or crackles. ABDOMEN: Soft, nontender, nondistended, normoactive bowel sounds. No palpable organomegaly. MUSCULOSKELETAL: No joint swelling or deformity. Left hip surgical dressing recently changed and is dry and intact with no surrounding redness noted, some minimal left anterior hip swelling noted EXTREMITIES: No cyanosis, clubbing, or pedal edema. NEUROLOGICAL: No focal deficits noted, diffuse weakness SKIN: No rashes. Assessment: Severe osteoarthritis of the left hip status post anterior approach total left hip arthroplasty postop day #1 Gastroesophageal reflux disease Hyperlipidemia Osteoarthritis history Rheumatoid arthritis history History of subdural hematoma with some memory impairment ADD/ADHD history Anxiety/depression GI prophylaxis DVT prophylaxis Full code Plan: Recommend continue with current medications and management of DVT and pain management prophylaxis per orthopedic services. Appropriate home medications have been resumed and patient is on regular diet with no reports of nausea or vomiting noted. Patient was maintained on IV hydration and will discontinue. Patient having some increasing pain and difficulty with ambulation due to left hip pain with physical therapy and will continue working with them overnight. Plan is for the patient to go home with family for a few days and will have outpatient rehab and/or home care arranged. Incentive spirometer at the bedside and encourage the patient to continue using at least 10 times every hour while awake. Encourage increase activity as tolerated. We will continue to follow along with orthopedics during hospitalization. Thank you for this consultation. The impression and plan of care has been dictated by Nurse Betty Lehman as directed. Dr. Jose MD I have performed a history and examination and MDM of this patient, discussed the same with the dictator, and agree with the dictator's assessment and plan as written ,documented as a scribe. Based on total visit time, I have performed more than 50% of the visit. Past Medical History Past Medical History: GERD/Reflux, Hyperlipidemia, Memory Impairment, Osteoarthritis (OA), Rheumatoid Arthritis (RA) Additional Past Medical History / Comment(s): HX SUBDURAL HEMATOMA History of Any Multi-Drug Resistant Organisms: None Reported Past Surgical History: Appendectomy, Section, Hysterectomy, Joint Replacement, Orthopedic Surgery, Tonsillectomy Additional Past Surgical History / Comment(s): ORIF LEFT WRIST. SINUS SURGERY. BILATERAL CATARACTS WITH IMPLANTS TOTALBILAT SHOULDER ARTHROPLASTY, BRAIN S URGERY -SUB DURAL HEMATOMA , COLONOSCOPY Past Anesthesia/Blood Transfusion Reactions: No Reported Reaction Past Psychological History: ADD/ADHD, Anxiety, Depression Smoking Status: Former smoker Past Alcohol Use History: Rare Additional Past Alcohol Use History / Comment(s): SMOKED FROM AGE 11 TO AGE 20, SMOKED 1PPD. Past Drug Use History: Marijuana Additional Drug Use History / Comment(s): MEDICAL CARD FOR EDIBLE MARIJUANA. INSTRUCTED TO REFRAIN FOR 24 HOURS PRIOR TO PROCEDURE - Past Family History Mother Family Medical History: No Reported History Father Family Medical History: Cancer Medications and Allergies Home Medications Medication Instructions Recorded Confirmed Type ALPRAZolam [Xanax] 1 mg PO HS 01/27/20 09/21/21 History FLUoxetine HCL [PROzac] 60 mg PO QAM 01/27/20 09/21/21 History Omeprazole 40 mg PO QAM 01/27/20 09/21/21 History Rosuvastatin Calcium 40 mg PO QAM 01/27/20 09/21/21 History buPROPion HCL [Wellbutrin SR] 150 mg PO QAM 01/27/20 09/21/21 History Cyclobenzaprine [Flexeril] 10 mg PO HS 06/17/20 09/21/21 History Dextroamphetamine/Amphetamine 10 mg PO DAILY 09/17/21 09/21/21 History [Adderall] Meloxicam 15 mg PO DAILY 09/17/21 09/21/21 History Allergies Allergy/AdvReac Type Severity Reaction Status Date / Time Penicillins Allergy Rash/Hives Verified 09/21/21 11:00 Physical Exam Vitals: Vital Signs Temp Pulse Pulse Resp BP Pulse Ox 09/22/21 08:00 97.6 F 87 16 106/62 99 09/22/21 02:00 98.2 F 78 16 103/63 96 09/21/21 20:00 97.5 F L 97 18 105/72 98 09/21/21 17:25 97 16 116/69 98 09/21/21 16:30 75 16 105/67 100 09/21/21 16:15 78 16 110/66 100 09/21/21 16:00 70 16 102/65 100 09/21/21 15:45 66 16 111/68 100 09/21/21 15:30 66 16 113/63 100 09/21/21 15:16 75 16 108/65 100 09/21/21 15:00 68 16 114/71 100 09/21/21 14:45 70 16 117/66 100 09/21/21 14:30 76 16 103/64 100 09/21/21 14:23 98 F 78 16 105/69 100 09/21/21 11:03 97.7 F 86 16 154/81 99 Intake and Output 09/21/21 09/22/21 09/22/21 22:59 06:59 14:59 Intake Total 480 Output Total 0 Balance 480 Intake: IV 0 Oral 480 Output: Urine 0 Other: # Voids 1 Weight 54.5 kg Results CBC & Chem 7: 09/22/21 05:09
[2021-09-22] MEDS: FERROUS SULFATE 325 MG TAB PO SCH (16:52)
[2021-09-22] MEDS: SENNOSIDES-DOCUSATE SODIUM 1 EACH TAB PO SCH (19:56)
[2021-09-22] MEDS: ALPRAZolam 1 MG TAB PO PRN (21:01)
[2021-09-22] MEDS: HYDROmorphone 1 MG/ML 1 ML SYRINGE IVP PRN (21:45)
[2021-09-23] MEDS: LACTATED RINGERS 1,000 ML IV SCH ×2 (05:42→22:13)
[2021-09-23] MEDS: HYDROcodone/APAP 7.5-325MG 1 EACH TAB PO PRN ×3 (06:58→18:42)
[2021-09-23] MEDS: HYDROmorphone 1 MG/ML 1 ML SYRINGE IVP PRN (07:36)
[2021-09-23 07:49] LABS: Glucose,Whole Blood 113 mg/dL (70-110)
[2021-09-23] MEDS ORDERED: ADENOSINE 3 MG/ML 2 ML VIAL IVP STA ×2 (07:56)
[2021-09-23 08:27] LABS: Glucose,Whole Blood 112 mg/dL (70-110)
[2021-09-23 09:35] LABS: Basophils % (A) 0 %; Eosinophils % (A) 1 %; HCT 22.6 % (34.0-46.0); Lymphocytes # (A) 1.1 k/uL (1.0-4.8); Lymphocytes % (A) 20 %; MCH 28.5 pg (25.0-35.0); MCHC 32.4 g/dL (31.0-37.0); MCV 87.9 fL (80.0-100.0); Mean Platelet Volume 8.8; Monocytes # (A) 0.3 k/uL (0-1.0); Monocytes % (A) 6 %; Neutrophils # (A) 4.1 k/uL (1.3-7.7); Neutrophils % (A) 72 %; Platelet Count 110 k/uL (150-450); RBC 2.57 m/uL (3.80-5.40); RDW 15.2 % (11.5-15.5); WBC 5.7 k/uL (3.8-10.6)
[2021-09-23 09:40] LABS: HGB 7.3 gm/dL (11.4-16.0)
[2021-09-23] MEDS: METOPROLOL SUCCINATE (ER) 25 MG TAB.ER.24H PO SCH (10:26)
[2021-09-23] MEDS: FLUoxetine HCL 20 MG CAP PO SCH (10:26)
[2021-09-23] MEDS: ATORVASTATIN 80 MG TAB PO SCH (10:26)
[2021-09-23] MEDS: RIVAROXABAN 10 MG TAB PO SCH (10:27)
[2021-09-23] MEDS: FERROUS SULFATE 325 MG TAB PO SCH ×2 (10:27→18:42)
[2021-09-23] MEDS: buPROPion SR 150 MG TABLET.ER PO SCH (10:27)
[2021-09-23 10:39] LABS: ALT 15 U/L (4-34); AST 34 U/L (14-36); African American GFR (CKD) >90 (>60 ml/min/1.73 sqM); Albumin 3.4 g/dL (3.5-5.0); Alkaline Phosphatase 62 U/L (38-126); Anion Gap 4 mmol/L; Blood Urea Nitrogen 7 mg/dL (7-17); Calcium 8.3 mg/dL (8.4-10.2); Carbon Dioxide 30 mmol/L (22-30); Chloride 100 mmol/L (98-107); Glucose 102 mg/dL (74-99); Magnesium 1.7 mg/dL (1.6-2.3); Non-African American GFR(CKD) 89 (>60 ml/min/1.73 sqM); Sodium 134 mmol/L (137-145); Total Bilirubin 0.6 mg/dL (0.2-1.3); Total Protein 5.6 g/dL (6.3-8.2)
--- NOTE | 2021-09-23 11:12 | CONS ---
CONSULTATION CHIEF COMPLAINT: Palpitations. HISTORY OF PRESENT ILLNESS: This is a 61-year-old lady who underwent left hip replacement surgery electively and developed supraventricular tachycardia this morning while on the floor. She was initially given 6 mg of adenosine and subsequently converted to sinus rhythm with 12 mg of adenosine. She remains in sinus rhythm with sinus tachycardia. At the time of my evaluation in the ICU, patient is in sinus rhythm with sinus tach but is otherwise doing well and is free of symptoms. The plan at this stage is to check an echocardiogram, start her on Toprol and hopefully home tomorrow. If she has recurrent episodes of SVT, we will refer her to an truck rental clerk. PAST MEDICAL HISTORY: Past medical history significant for arthritis, dyslipidemia. MEDICATIONS: Medications at home include Xanax, Flexeril, Adderall, Prozac, omeprazole, meloxicam, Crestor, and Wellbutrin ALLERGIES: ALLERGIES TO PENICILLIN. FAMILY HISTORY: Family history negative for premature coronary artery disease. SOCIAL HISTORY: Social history negative for current smoking, EtOH abuse or drug abuse. REVIEW OF SYSTEMS: HEENT is unremarkable. Cardiac as described above. Respiratory negative. GI negative. negative. Allergy/Immunology none. Skin negative. Musculoskeletal significant for arthritis. Psychosocial negative. Derm negative. Constitutional negative. Oncological negative. CARDIOLOGY SPECIALIST: Negative. Rest of the system review is not relevant. PHYSICAL EXAMINATION: On exam comfortable at rest. Vital signs are stable. There is jugular venous distention. Chest exam reveals good air entry bilaterally. Heart exam reveals first and second heart sounds. No gallop. No murmur. No rub. Abdomen is soft, nontender. Examination of extremities did not reveal any edema. Peripheral pulses are felt. LABS: Labs show a hemoglobin of 7.3. ASSESSMENT: 1. Paroxysmal supraventricular tachycardia. 2. History of left hip replacement. PLAN: I will obtain an echocardiogram. Start her on Toprol. Okay to be discharged home tomorrow. MMODL / IJN: [id number] /
--- NOTE | 2021-09-23 11:13 | CA ---
Transthoracic Echo Report Name: Zara Andre Age: 61 Gender: F : 1960 Exam Date: 09/23/2021 09:52 Exam Location: [facility] Ht (in): 60 Wt (lb): 120 Ordering Physician: Isak Stack MD ([id number]) Attending/Referring Phys: Sreekanth MARTINEZ Distribution Sales Representative Luana Abebe RDCS Procedure CPT: Indications: svt Cardiac Hx: Technical Quality: Fair Contrast 1: Total Dose (mL): Contrast 2: Total Dose (mL): MEASUREMENTS (Male / Female) Normal Values 2D ECHO LV Diastolic Diameter PLAX 3.3 cm 4.2 - 5.9 / 3.9 - 5.3 cm LV Systolic Diameter PLAX 2.2 cm IVS Diastolic Thickness 1.2 cm 0.6 - 1.0 / 0.6 - 0.9 cm LVPW Diastolic Thickness 1.2 cm 0.6 - 1.0 / 0.6 - 0.9 cm LV Relative Wall Thickness 0.7 RV Internal Dim ED PLAX 2.3 cm LA Volume 32.1 cm??? 18 - 58 / 22 - 52 cm??? M-MODE Aortic Root Diameter MM 2.4 cm LA Systolic Diameter MM 3.3 cm LA Ao Ratio MM 1.4 AV Cusp Separation MM 1.7 cm DOPPLER AV Peak Velocity 146.4 cm/s AV Peak Gradient 8.6 mmHg LVOT Peak Velocity 117.2 cm/s LVOT Peak Gradient 5.5 mmHg MV Area PHT 3.7 cm??? Mitral E Point Velocity 63.0 cm/s Mitral A Point Velocity 83.6 cm/s Mitral E to A Ratio 0.8 MV Deceleration Time 206.4 ms MV E' Velocity 5.8 cm/s Mitral E to MV E' Ratio 10.8 TV Peak Velocity 231.2 cm/s TR Peak Velocity 183.2 cm/s TR Peak Gradient 13.4 mmHg FINDINGS Left Ventricle Mildly increased left ventricular wall thickness. Normal left ventricular systolic function with no obvious regional wall motion abnormalities. Normal left ventricular diastolic filling pattern. Left ventricular ejection fraction is estimated at 55-60 %. Right Ventricle Normal right ventricular size and function. Right ventricular systolic pressure within normal limits. Right Atrium Normal right atrial size. Left Atrium Normal left atrial size. No evidence for an atrial septal defect. Mitral Valve Moderate mitral annular calcification. Mild mitral regurgitation. Aortic Valve Trileaflet aortic valve. No aortic valve stenosis or regurgitation. Tricuspid Valve Structurally normal tricuspid valve. Mild tricuspid regurgitation. Pulmonic Valve Trace pulmonic regurgitation. Pericardium No pericardial effusion. Aorta Normal size aortic root and proximal ascending aorta. CONCLUSIONS Normal LV size and systolic function. Mild mitral and tricuspid insufficiency and no significant pulmonary hypertension no pericardial effusion Previewed by: Dr. Rancho Tracy MD (Electronically Signed) Final Date: 23 September 2021 11:12
--- NOTE | 2021-09-23 12:56 | P.PN ---
Subjective Progress Note Date: 09/23/21 Principal diagnosis: status post right total hip arthroplasty new onset SVT She notes minimal hip pain. She denies SOB or chest pain. Objective - Vital Signs Vital signs: Vital Signs Temp 98.2 F 09/23/21 12:00 Pulse 92 09/23/21 12:00 Resp 18 09/23/21 12:00 BP 94/52 09/23/21 12:00 Pulse Ox 99 09/23/21 08:10 FiO2 Intake & Output 09/22/21 09/23/21 09/23/21 18:59 06:59 18:59 Intake Total 1080 480 Balance 1080 480 Intake: Oral 1080 480 Other: Voiding Method Toilet # Voids 2 2 2 - Exam right hip incision clean/dry/intact - Constitutional General appearance: Present: no acute distress - Neurologic Neurologic Comment(s): intact right lower extremity - Musculoskeletal Musculoskeletal Comment(s): misha's negative right leg Musculoskeletal: Present: strength equal bilaterally - Psychiatric Psychiatric: Present: A&O x's 3 - Labs CBC & Chem 7: 09/23/21 09:14 09/23/21 09:14 Labs: Abnormal Lab Results - Last 24 Hours (Table) 09/23/21 09/23/21 09/23/21 Range/Units 07:48 08:26 09:14 RBC 2.57 L (3.80-5.40) m/uL Hgb 7.3 L D (11.4-16.0) gm/dL Hct 22.6 L (34.0-46.0) % Plt Count 110 L (150-450) k/uL Sodium (137-145) mmol/L Glucose (74-99) mg/dL POC Glucose (mg/dL) 113 H 112 H (70-110) mg/dL Calcium (8.4-10.2) mg/dL Total Protein (6.3-8.2) g/dL Albumin (3.5-5.0) g/dL 09/23/21 Range/Units 09:14 RBC (3.80-5.40) m/uL Hgb (11.4-16.0) gm/dL Hct (34.0-46.0) % Plt Count (150-450) k/uL Sodium 134 L (137-145) mmol/L Glucose 102 H (74-99) mg/dL POC Glucose (mg/dL) (70-110) mg/dL Calcium 8.3 L (8.4-10.2) mg/dL Total Protein 5.6 L (6.3-8.2) g/dL Albumin 3.4 L (3.5-5.0) g/dL Assessment and Plan Assessment: s/p right total hip arthroplasty SVT-resolved anemia Plan: Continue PT cardiac management DVT prophylaxis moniter hemoglobin possible discharge tomorrow Time with Patient: Less than 30
--- NOTE | 2021-09-23 14:28 | P.PN ---
Subjective Progress Note Date: 09/23/21 - Reason for Consult Consult date: 09/22/21 Medical management, postop left hip arthroplasty - History of Present Illness This is a pleasant 61-year-old female who was admitted under orthopedic services for severe osteoarthritis of the left hip and is status post tract anterior approach of left total hip arthroplasty postop day #1. Patient just started working with physical therapy and unable to tolerate much due to pain and plan is for patient to go home with family for a couple days and have outpatient rehab arranged. Patient follows with Dr. rGimes in the outpatient setting and has a past medical history of gastroesophageal reflux disease, hyperlipidemia, osteoarthritis, rheumatoid arthritis, ADD/ADHD, anxiety and depression with some memory impairment. Patient is a former history of smoking and does use medical marijuana and rarely drinks alcohol and denies any other illicit drug use. Appropriate home medications have been resumed and patient was maintained on IV hydration which will be discontinued. Patient is eating and drinking and reports passing gas and urinating with no problems. Patient denies any chest p ain, shortness of breath, or palpitations. Patient is afebrile. WBC within normal limits at 7.63 and hemoglobin is 8.0. No active bleeding noted. Left surgical hip dressing was changed and is currently dry and intact with positive pedal pulses, cap refill less than 3, and denies any tingling or numbness of the lower extremities. 09/23/2021 Patient was seen in follow-up currently transferred to the ICU as an overflow as there are currently no beds available on [facility] as patient went into sudden onset SVT this morning and a code was called and patient was initially given 6 mg of adenosine and heart rate continued to be in the 200s an additional dose of 12 mg of adenosine was given per protocol and patient became sinus tachycardia. Cardiology consulted and recommend continue with telemetry monitoring and close monitoring overnight with possible discharge tomorrow. Cardiology starting on Toprol and patient is are maintained on Xarelto. 2-D echo was ordered as well. Patient is currently asymptomatic and denies any chest pain or palpitations. Patient is afebrile. Patient denies any nausea or vomiting and is tolerating diet. Patient able to get up and work with physical therapy today and continues to have some left hip discomfort although feels improved from yesterday. Patient also with a drop in hemoglobin of 7.3 with no active bleeding noted. Will monitor CBC closely and follow-up with repeat labs. Mag is 1.7 today and will give 2 g and follow-up with labs as well. Review of systems: Constitutional: No reports of fatigue, fever, or chills Cardiovascular: No reports of chest pain or palpitations Respiratory: No reports of shortness of breath or cough GI: No reports of nausea, vomiting, or diarrhea : No reports of dysuria or retention Neurovascular: reports of generalized weakness left hip pain All medications have been reviewed Active Medications Hydrocodone Bitart/Acetaminophen (Hydrocodone/Apap 5-325mg 1 Each Tab) 1 each PO Q6HR PRN PRN Reason: Pain Scale 1 to 5 Stop: 10/21/21 14:15 Hydrocodone Bitart/Acetaminophen (Hydrocodone/Apap 7.5-325mg 1 Each Tab) 1 each PO Q6H PRN PRN Reason: Pain Scale 6 to 10 Stop: 10/21/21 14:15 Last Admin: 09/23/21 12:05 Dose: 1 each Alprazolam (Alprazolam 1 Mg Tab) 1 mg PO HS PRN PRN Reason: Anxiety Last Admin: 09/22/21 21:01 Dose: 1 mg Atorvastatin Calcium (Atorvastatin 80 Mg Tab) 80 mg PO [facility] Last Admin: 09/23/21 10:26 Dose: 80 mg Bupropion HCl (Bupropion Sr 150 Mg Tablet.Er) 150 mg PO [facility] Last Admin: 09/23/21 10:27 Dose: 150 mg Ferrous Sulfate (Ferrous Sulfate 325 Mg Tab) 325 mg PO BID-W/MEALS [facility] Last Admin: 09/23/21 10:27 Dose: 325 mg Fluoxetine HCl (Fluoxetine Hcl 20 Mg Cap) 60 mg PO [facility] Last Admin: 09/23/21 10:26 Dose: 60 mg Hydromorphone HCl (Hydromorphone 0.5 Mg/0.5 Ml Syringe) 0.5 mg IVP Q3HR PRN PRN Reason: Pain Scale 4 to 6 Stop: 10/21/21 14:15 Last Admin: 09/22/21 16:56 Dose: 0.5 mg Hydromorphone HCl (Hydromorphone 1 Mg/Ml 1 Ml Syringe) 1 mg IVP Q3HR PRN PRN Reason: Pain Scale 7 to 10 Stop: 10/21/21 14:15 Last Admin: 09/23/21 07:36 Dose: 1 mg Lactated Ringer's (Lactated Ringers) 1,000 mls @ 20 mls/hr IV .Q24H [facility] Stop: 10/21/21 05:57 Last Admin: 09/23/21 05:42 Dose: Not Given Magnesium Sulfate/Dextrose 1 (gm/ IV Solution) 100 mls @ 100 mls/hr IVPB Q1H [facility] Stop: 09/23/21 16:29 Lidocaine HCl (Lidocaine 1% (10mg/Ml) For Iv Start) 0.1 ml INTRADERMA PER PROTOCOL PRN PRN Reason: IV Start Stop: 10/21/21 05:57 Last Admin: 09/21/21 11:21 Dose: 0.1 ml Metoprolol Succinate (Metoprolol Succinate (Er) 25 Mg Tab.Er.24h) 25 mg PO DAILY [facility] Last Admin: 09/23/21 10:26 Dose: 25 mg Naloxone HCl (Naloxone 0.4 Mg/Ml 1 Ml Vial) 0.2 mg IV Q2M PRN PRN Reason: Opioid Reversal Stop: 10/21/21 14:15 Rivaroxaban (Rivaroxaban 10 Mg Tab) 10 mg PO DAILY [facility]; Protocol Stop: 10/27/21 09:01 Last Admin: 09/23/21 10:27 Dose: 10 mg Senna/Docusate Sodium (Sennosides-Docusate Sodium 1 Each Tab) 2 each PO HS [facility] Stop: 10/21/21 21:01 Last Admin: 09/22/21 19:56 Dose: 2 each PHYSICAL EXAMINATION: GENERAL: The patient is alert and oriented x3, not in any acute distress. Well developed, well nourished. HEENT: Pupils are round and equally reacting to light. EOMI. No scleral icterus. No conjunctival pallor. Normocephalic, atraumatic. No pharyngeal erythema. No thyromegaly. Anterior neck swelling CARDIOVASCULAR: S1 and S2 present. No murmurs, rubs, or gallops. PULMONARY: Chest is clear to auscultation, no wheezing or crackles. ABDOMEN: Soft, nontender, nondistended, normoactive bowel sounds. No palpable organomegaly. MUSCULOSKELETAL: No joint swelling or deformity. Left hip surgical dressing recently changed and is dry and intact with no surrounding redness noted, some minimal left anterior hip swelling noted EXTREMITIES: No cyanosis, clubbing, or pedal edema. NEUROLOGICAL: No focal deficits noted, diffuse weakness SKIN: No rashes. Assessment: Severe osteoarthritis of the left hip status post anterior approach total left hip arthroplasty postop day #2 New onset SVT, resolved after 2 doses of adenosine Gastroesophageal reflux disease Hyperlipidemia Osteoarthritis history Rheumatoid arthritis history History of subdural hematoma with some memory impairment ADD/ADHD history Anxiety/depression GI prophylaxis DVT prophylaxis Full code Plan: Recommend continue with current medications and management of DVT and pain management prophylaxis per orthopedic services. Patient is maintained on Xarelto and will continue. Patient did have an episode of SVT with heart rates into the 170s getting up to 200s and A team was called and patient given adenosine 6 mg with no results and converted to sinus tachycardia after 12 mg of adenosine given. Patient was transferred to the ICU as a selective overflow and will be monitored closely overnight with cardiology following and probable discharge in 24 hours. Patient denies any current symptoms of chest pain, dizziness, lightheadedness, shortness of breath, or palpitations. Patient felt it was a panic attack. Patient was able to work with physical therapy and able to get up to the bathroom and is voiding with no difficulties. Patient reports passing gas and tolerating diet with no nausea or vomiting noted. Appropriate home medications have been resumed and being started on Toprol by cardiology. Plan is for the patient to go home with family for a few days and will have outpatient rehab and/or home care arranged. Incentive spirometer at the bedside and encourage the patient to continue using at least 10 times every hour while awake. Encourage increase activity as tolerated. We will continue to follow along with orthopedics during hospitalization. Thank you for this consultation. The impression and plan of care has been dictated by Nurse Betty Lehman as directed. Dr. Jose MD I have performed a history and examination and MDM of this patient, discussed the same with the dictator, and agree with the dictator's assessment and plan as written ,documented as a scribe. Based on total visit time, I have performed more than 50% of the visit. Objective - Vital Signs Vital signs: Vital Signs Temp 98.5 F 09/23/21 07:23 Pulse 115 H 09/23/21 08:10 Resp 18 09/23/21 08:10 BP 163/84 09/23/21 08:10 Pulse Ox 99 09/23/21 08:10 FiO2 Intake & Output 09/22/21 09/23/21 09/23/21 18:59 06:59 18:59 Intake Total 1080 Balance 1080 Intake: Oral 1080 Other: Voiding Method Toilet # Voids 2 2 - Labs CBC & Chem 7: 09/23/21 09:14 09/23/21 09:14 Labs: Abnormal Lab Results - Last 24 Hours (Table) 09/22/21 09/23/21 09/23/21 Range/Units 05:09 07:48 08:26 RBC 2.95 L (4.10-5.20) X 10*6/uL Hgb 8.0 L (12.0-15.0) g/dL Hct 25.6 L (37.2-46.3) % MCHC 31.3 L (32.0-37.0) g/dL RDW 14.7 H (11.5-14.5) % Plt Count 132 L (140-440) X 10*3/uL Lymphocytes # 0.76 L (0.90-5.00) X 10*3/uL Eosinophils # 0.01 L (0.04-0.35) X 10*3/uL POC Glucose (mg/dL) 113 H 112 H (70-110) mg/dL
[2021-09-23] MEDS: MAGNESIUM SULFATE-D5W PMX 1 GM in DEXTROSE/WATER 1 100ML.BAG IVPB SCH ×2 (15:29→18:43)
[2021-09-23] MEDS: ALPRAZolam 1 MG TAB PO PRN (20:09)
[2021-09-23] MEDS: SENNOSIDES-DOCUSATE SODIUM 1 EACH TAB PO SCH (20:09)
[2021-09-24] MEDS: HYDROcodone/APAP 7.5-325MG 1 EACH TAB PO PRN ×2 (01:02→06:37)
[2021-09-24 03:45] VITALS: RESP 16
[2021-09-24] MEDS: FERROUS SULFATE 325 MG TAB PO SCH (06:36)
[2021-09-24 09:45] VITALS: BP 112/68; PULSE 91; TEMP 98
[2021-09-24] MEDS: FLUoxetine HCL 20 MG CAP PO SCH (09:46)
[2021-09-24] MEDS: buPROPion SR 150 MG TABLET.ER PO SCH (09:46)
[2021-09-24] MEDS: METOPROLOL SUCCINATE (ER) 25 MG TAB.ER.24H PO SCH (09:46)
[2021-09-24] MEDS: ATORVASTATIN 80 MG TAB PO SCH (09:46)
[2021-09-24] MEDS: RIVAROXABAN 10 MG TAB PO SCH (09:46)
[2021-09-24 10:15] LABS: Basophils % (A) 0 %; Eosinophils # (A) 0.1 k/uL (0-0.7); Eosinophils % (A) 1 %; HGB 7.3 gm/dL (11.4-16.0); Lymphocytes % (A) 16 %; MCH 29.4 pg (25.0-35.0); MCHC 33.4 g/dL (31.0-37.0); MCV 88.1 fL (80.0-100.0); Mean Platelet Volume 7.3; Monocytes # (A) 0.4 k/uL (0-1.0); Monocytes % (A) 6 %; Neutrophils # (A) 4.5 k/uL (1.3-7.7); Neutrophils % (A) 75 %; Platelet Count 155 k/uL (150-450); RBC 2.49 m/uL (3.80-5.40); WBC 6.1 k/uL (3.8-10.6)
[2021-09-24 10:31] LABS: African American GFR (CKD) >90 (>60 ml/min/1.73 sqM); Anion Gap 5 mmol/L; Blood Urea Nitrogen 5 mg/dL (7-17); Calcium 8.3 mg/dL (8.4-10.2); Carbon Dioxide 30 mmol/L (22-30); Chloride 98 mmol/L (98-107); Glucose 110 mg/dL (74-99); Magnesium 1.9 mg/dL (1.6-2.3); Non-African American GFR(CKD) >90 (>60 ml/min/1.73 sqM); Potassium 3.8 mmol/L (3.5-5.1); Sodium 133 mmol/L (137-145)
--- NOTE | 2021-09-24 11:55 | P.DS ---
Providers Date of admission: 09/23/21 13:00 Expected date of discharge: 09/24/21 Attending physician: Dick Gaines Consults: 09/21/21 14:17 Consult Physician Routine Consulting Provider: Alex Garcia Consult Reason/Comments: Medical Management s/p left total hip arthroplasty Do you want consulting provider notified?: Yes 09/23/21 07:56 Consult Physician Routine Consulting Provider: Isak Stack Consult Reason/Comments: SVT Do you want consulting provider notified?: Yes Primary care physician: Patricia Grimes DO Hospital Course: Date of admission: 09/21/2021 Date of discharge: 09/24/2021 Admission diagnosis: Left hip osteoarthritis Discharge diagnosis: Same Attending physician: Dr. Gaines Surgical procedures: Left total hip arthroplasty Brief history: Patient is a 61-year-old female with a history of progressive primary left hip osteoarthritis. At this point patient has failed conservative treatment measures and has opted to proceed with a elective left total hip arthroplasty. Hospital course: Details of patient's surgery can be found in operative report. Patient tolerated the procedure well and was subsequently transported to orthopedic floor. Patient's orthopeidc and medical care was provided daily. Patient had daily laboratory tests performed for evaluation of overall blood counts. Patient had daily physical therapy to include strengthening range of motion as well as education with walker ambulation. Patient was treated with Xarelto for their postoperative DVT prophylaxis during their inpatient stay. Patient was noted to have a relatively uneventful postoperative course. Patient reported satisfactory pain control with oral pain medications by postoperative day 3. Patient showed satisfactory progress with physical therapy. Patient moved steadily through the program and had no difficulty meeting the goals by postoperative day 3. Given patient's otherwise satisfactory course and having met physical therapy goals, plan is to discharge patient home with health services on postoperative day 3. Discharge condition/disposition: Patient will be discharged home with health services in stable condition. Discharge medications: Instructions are given on resumption of patient's normal daily medications per primary care recommendation, in addition patient will be prescribed [facility]; iron; Colace; Eliquis 2.5 mg BID x 2 weeks. Discharge instructions: 1. Wound care and infection precautions, keep incision dry and covered while showering, no lotions, creams, moisturizers. No soaking, tubs, pools, hottubs. Do not scrub over the incision. 2. Weight-bear as tolerated with walker / cane until follow-up. 3. Ice and elevate when necessary. Do not exceed 20 minutes per hour with ice pack. 4. Utilize compression sleeve until seen at first follow up appointment. 5. Visiting nursing care. 6. Home physical therapy. 7. Pain meds and anticoagulants per prescription. 8. Pain medication has potential to cause constipation. Increase oral fluid and fiber intake. Contact primary care provider if you have not had a bowel movement within 48 hours after discharge 9. No anti-inflammatory medication until discussed at first post operative visit, this including Motrin, Aleve, Mobic, Diclofenac. 10. Follow up in office at 2 weeks postop with Frank Moss PA-C / Long Angulo PA-C 11. Follow up with your primary care doctor 7-10 days after discharge. 12. Contact [facility] with any questions, . Keep incision clean, dry, intact. While showering, cover exofin fusion tape with Saran wrap. Keep fusion tape on until follow-up appointment in office at 2 weeks Medications: [facility]; iron; Colace; Eliquis 2.5 mg BID x 2 weeks. Assessment: Left hip osteoarthritis Procedures: Left total hip arthroplasty Patient Condition at Discharge: Good Plan - Discharge Summary Discharge Rx Participant: Yes New Discharge Prescriptions: New Docusate [Colace] 100 mg PO DAILY #30 capsule HYDROcodone/APAP 5-325MG [[facility] 5-325] 1 tab PO Q6HR PRN #28 tab PRN Reason: Pain Ferrous Sulfate [Iron] 325 mg PO DAILY #21 tablet Apixaban [Eliquis] 2.5 mg PO BID #60 tab Discontinued HYDROcodone/APAP 7.5-325MG [[facility] 7.5] 1 - 2 each PO Q6HR PRN #42 tab PRN Reason: Pain No Action Rosuvastatin Calcium 40 mg PO QAM buPROPion HCL [Wellbutrin SR] 150 mg PO QAM ALPRAZolam [Xanax] 1 mg PO HS Omeprazole 40 mg PO QAM FLUoxetine HCL [PROzac] 60 mg PO QAM Cyclobenzaprine [Flexeril] 10 mg PO HS Dextroamphetamine/Amphetamine [Adderall] 10 mg PO DAILY Meloxicam 15 mg PO DAILY Discharge Medication List ALPRAZolam [Xanax] 1 mg PO HS 01/27/20 [History] FLUoxetine HCL [PROzac] 60 mg PO QAM 01/27/20 [History] Omeprazole 40 mg PO QAM 01/27/20 [History] Rosuvastatin Calcium 40 mg PO QAM 01/27/20 [History] buPROPion HCL [Wellbutrin SR] 150 mg PO QAM 01/27/20 [History] Cyclobenzaprine [Flexeril] 10 mg PO HS 06/17/20 [History] Dextroamphetamine/Amphetamine [Adderall] 10 mg PO DAILY 09/17/21 [History] Meloxicam 15 mg PO DAILY 09/17/21 [History] Apixaban [Eliquis] 2.5 mg PO BID #60 tab 09/24/21 [Rx] Docusate [Colace] 100 mg PO DAILY #30 capsule 09/24/21 [Rx] Ferrous Sulfate [Iron] 325 mg PO DAILY #21 tablet 09/24/21 [Rx] HYDROcodone/APAP 5-325MG [[facility] 5-325] 1 tab PO Q6HR PRN #28 tab 09/24/21 [Rx] Follow up Appointment(s)/Referral(s): [facility], [NON-STAFF] - As Needed ([facility] will call you to schedule your in home physical therapy and nursing visits. ) Long Angulo, JENNIFER [PHYSICIAN PATTERN CHART WRITER] - 10/07/21 11:00 am Activity/Diet/Wound Care/Special Instructions: Discharge instructions: 1. Wound care and infection precautions, keep incision dry and covered while showering, no lotions, creams, moisturizers. No soaking, tubs, pools, hottubs. Do not scrub over the incision. 2. Weight-bear as tolerated with walker / cane until follow-up. 3. Ice and elevate when necessary. Do not exceed 20 minutes per hour with ice pack. 4. Utilize compression sleeve until seen at first follow up appointment. 5. Visiting nursing care. 6. Home physical therapy. 7. Pain meds and anticoagulants per prescription. 8. Pain medication has potential to cause constipation. Increase oral fluid and fiber intake. Contact primary care provider if you have not had a bowel movement within 48 hours after discharge 9. No anti-inflammatory medication until discussed at first post operative visit, this including Motrin, Aleve, Mobic, Diclofenac. 10. Follow up in office at 2 weeks postop with Frank Moss PA-C / Long Angulo PA-C 11. Follow up with your primary care doctor 7-10 days after discharge. 12. Contact [facility] with any questions, . Keep incision clean, dry, intact. While showering, cover exofin fusion tape with Saran wrap. Keep fusion tape on until follow-up appointment in office at 2 weeks Medications: [facility]; iron; Colace; Eliquis 2.5 mg BID x 2 weeks. Discharge Disposition: HOME WITH HOME HEALTH SERVICES
--- NOTE | 2021-09-24 12:39 | P.PN ---
Subjective Progress Note Date: 09/24/21 Patient is seen today resting comfortably. She denies increased shortness of breath or chest pain. There has been no additional episodes of SVT. She is tolerating the Toprol well. Her echocardiogram shows a normal LV function with mild mitral and tricuspid regurgitation. Will continue with current dose of medications. Plan is for patient to be discharged home today Objective - Vital Signs Vital signs: Vital Signs Temp 98.0 F 09/24/21 08:00 Pulse 91 09/24/21 08:00 Resp 16 09/24/21 08:00 BP 112/68 09/24/21 08:00 Pulse Ox 98 09/24/21 08:00 FiO2 Intake & Output 09/23/21 09/24/21 09/24/21 18:59 06:59 18:59 Intake Total 480 0 Balance 480 0 Intake: Oral 480 0 Other: Voiding Method Toilet Toilet # Voids 2 1 - Exam PHYSICAL EXAM: VITAL SIGNS: Reviewed. GENERAL: Well-developed in no acute distress. HEENT: Head is normocephalic. Pupils are equal, round. Sclerae anicteric. Mucous membranes of the mouth are moist. NECK: Supple. No JVD or thyromegaly RESPIRATORY: Respirations even and unlabored. Lungs diminished to auscultation bilaterally. CARDIO: Regular rate and rhythm. S1 and S2 heard. No murmur or gallops. EXTREMITIES: Normal range of motion. No clubbing or cyanosis. Peripheral pulses intact. Negative for bilateral lower extremity edema NEURO: Orientated to person, time, mood is appropriate - Labs CBC & Chem 7: 09/24/21 09:44 09/24/21 09:44 Labs: Abnormal Lab Results - Last 24 Hours (Table) 09/24/21 09/24/21 Range/Units 09:44 09:44 RBC 2.49 L (3.80-5.40) m/uL Hgb 7.3 L (11.4-16.0) gm/dL Hct 22.0 L (34.0-46.0) % Sodium 133 L (137-145) mmol/L BUN 5 L (7-17) mg/dL Glucose 110 H (74-99) mg/dL Calcium 8.3 L (8.4-10.2) mg/dL Assessment and Plan Assessment: Proximal supraventricular tachycardia History of left hip replacement Plan: Continue with current cardiac medications including Toprol Patient is cleared to be discharged from a cardiac standpoint The above impression and plan of care have been discussed and directed by the signing physician. Ansley Castellano, nurse practitioner, acting as scribe for signing physician.
--- NOTE | 2021-09-25 00:47 | P.PN ---
Subjective Progress Note Date: 09/24/21 - Reason for Consult Consult date: 09/22/21 Medical management, postop left hip arthroplasty - History of Present Illness This is a pleasant 61-year-old female who was admitted under orthopedic services for severe osteoarthritis of the left hip and is status post tract anterior approach of left total hip arthroplasty postop day #1. Patient just started working with physical therapy and unable to tolerate much due to pain and plan is for patient to go home with family for a couple days and have outpatient rehab arranged. Patient follows with Dr. Grimes in the outpatient setting and has a past medical history of gastroesophageal reflux disease, hyperlipidemia, osteoarthritis, rheumatoid arthritis, ADD/ADHD, anxiety and depression with some memory impairment. Patient is a former history of smoking and does use medical marijuana and rarely drinks alcohol and denies any other illicit drug use. Appropriate home medications have been resumed and patient was maintained on IV hydration which will be discontinued. Patient is eating and drinking and reports passing gas and urinating with no problems. Patient denies any chest p ain, shortness of breath, or palpitations. Patient is afebrile. WBC within normal limits at 7.63 and hemoglobin is 8.0. No active bleeding noted. Left surgical hip dressing was changed and is currently dry and intact with positive pedal pulses, cap refill less than 3, and denies any tingling or numbness of the lower extremities. 09/23/2021 Patient was seen in follow-up currently transferred to the ICU as an overflow as there are currently no beds available on [facility] as patient went into sudden onset SVT this morning and a code was called and patient was initially given 6 mg of adenosine and heart rate continued to be in the 200s an additional dose of 12 mg of adenosine was given per protocol and patient became sinus tachycardia. Cardiology consulted and recommend continue with telemetry monitoring and close monitoring overnight with possible discharge tomorrow. Cardiology starting on Toprol and patient is are maintained on Xarelto. 2-D echo was ordered as well. Patient is currently asymptomatic and denies any chest pain or palpitations. Patient is afebrile. Patient denies any nausea or vomiting and is tolerating diet. Patient able to get up and work with physical therapy today and continues to have some left hip discomfort although feels improved from yesterday. Patient also with a drop in hemoglobin of 7.3 with no active bleeding noted. Will monitor CBC closely and follow-up with repeat labs. Mag is 1.7 today and will give 2 g and follow-up with labs as well. 09/24/2021 Patient evaluated today and doing well status post left hip arthroplasty and SVT. Cardiology following and has cleared the patient for discharge and will continue on Toprol xl and outpatient follow up. Patient ready for discharge and will be later today by orthopedics. Patient is afebrile and denies any chest pain, palpitations, or shortness of breath. Pain is currently managed. Tolerating diet and reports to going to the bathroom with no difficulty. Review of systems: Constitutional: No reports of fatigue, fever, or chills Cardiovascular: No reports of chest pain or palpitations Respiratory: No reports of shortness of breath or cough GI: No reports of nausea, vomiting, or diarrhea : No reports of dysuria or retention Neurovascular: reports of generalized weakness left hip pain All medications have been reviewed PHYSICAL EXAMINATION: GENERAL: The patient is alert and oriented x3, not in any acute distress. Well developed, well nourished. HEENT: Pupils are round and equally reacting to light. EOMI. No scleral icterus. No conjunctival pallor. Normocephalic, atraumatic. No pharyngeal erythema. No thyromegaly. Anterior neck swelling CARDIOVASCULAR: S1 and S2 present. No murmurs, rubs, or gallops. PULMONARY: Chest is clear to auscultation, no wheezing or crackles. ABDOMEN: Soft, nontender, nondistended, normoactive bowel sounds. No palpable or ganomegaly. MUSCULOSKELETAL: No joint swelling or deformity. Left hip surgical dressing is dry and intact with no surrounding redness noted, some minimal left anterior hip swelling noted EXTREMITIES: No cyanosis, clubbing, or pedal edema. NEUROLOGICAL: No focal deficits noted, diffuse weakness SKIN: No rashes. Assessment: Severe osteoarthritis of the left hip status post anterior approach total left hip arthroplasty postop day #3 New onset SVT, resolved after 2 doses of adenosine Gastroesophageal reflux disease Hyperlipidemia Osteoarthritis history Rheumatoid arthritis history History of subdural hematoma with some memory impairment ADD/ADHD history Anxiety/depression GI prophylaxis DVT prophylaxis Full code Plan: Recommend continue with current medications and management of DVT and pain management prophylaxis per orthopedic services. Patient is going home on Eliquis and Toprol xl per cardiology and will follow up on discharge. Patient denies any current symptoms of chest pain, dizziness, lightheadedness, shortness of breath, or palpitations. Plan is for the patient to go home with family for a few days and will have outpatient rehab and/or home care arranged. Incentive spirometer at the bedside and encouraged the patient to continue using at least 10 times every hour while awake. Encourage increase activity as tolerated. We will continue to follow along with orthopedics during hospitalization. Thank you for this consultation. Patient is being discharged today. The impression and plan of care has been dictated by Gabriella Chin, Nurse Practitioner as directed. Dr. Jose MD I have performed a history and examination and MDM of this patient, discussed the same with the dictator, and agree with the dictator's assessment and plan as written ,documented as a scribe. Based on total visit time, I have performed more than 50% of the visit. Objective - Vital Signs Vital signs: Vital Signs Temp 98.1 F 09/24/21 03:44 Pulse 80 09/24/21 03:44 Resp 16 09/24/21 03:44 BP 90/53 09/24/21 03:44 Pulse Ox 98 09/24/21 03:44 FiO2 Intake & Output 09/23/21 09/24/21 09/24/21 18:59 06:59 18:59 Intake Total 480 Balance 480 Intake: Oral 480 Other: Voiding Method Toilet Toilet # Voids 2 1 - Labs CBC & Chem 7: 09/24/21 09:44 09/24/21 09:44 Labs: Abnormal Lab Results - Last 24 Hours (Table) 09/23/21 09/23/21 Range/Units 09:14 09:14 RBC 2.57 L (3.80-5.40) m/uL Hgb 7.3 L D (11.4-16.0) gm/dL Hct 22.6 L (34.0-46.0) % Plt Count 110 L (150-450) k/uL Sodium 134 L (137-145) mmol/L Glucose 102 H (74-99) mg/dL Calcium 8.3 L (8.4-10.2) mg/dL Total Protein 5.6 L (6.3-8.2) g/dL Albumin 3.4 L (3.5-5.0) g/dL
== END 2021-09-24 14:28 | disposition home health service (06) | DRG 470 ==
LOC: OR 10:17 → 4SSUR 14:23 → OR 09-22 07:43 → 4SSUR 09-22 08:01 → 2SICU 09-23 08:21 → OBSVTOIN 09-23 13:00 → 3SCARD 09-23 17:29
PROVIDERS: ADMIT Orthopaedic Surgery; ATTEND Orthopaedic Surgery
PROC: 0SRB03A Replacement of Left Hip Joint with Ceramic Synthetic Substitute, Uncemented, Open Approach (ICD-10-PCS; principal; 2021-09-21 12:05)
DX: M16.12 Unilateral primary osteoarthritis, left hip (principal); I47.1 Supraventricular tachycardia; D64.9 Anemia, unspecified; K21.9 Gastro-esophageal reflux disease without esophagitis; M06.9 Rheumatoid arthritis, unspecified; I10 Essential (primary) hypertension; F41.9 Anxiety disorder, unspecified; F32.A Depression, unspecified; E78.5 Hyperlipidemia, unspecified; F90.9 Attention-deficit hyperactivity disorder, unspecified type; Z98.42 Cataract extraction status, left eye; Z98.41 Cataract extraction status, right eye; Z96.1 Presence of intraocular lens; Z98.890 Other specified postprocedural states; Z96.612 Presence of left artificial shoulder joint; Z96.611 Presence of right artificial shoulder joint; Z90.89 Acquired absence of other organs; Z88.0 Allergy status to penicillin; Z80.9 Family history of malignant neoplasm, unspecified; Z87.891 Personal history of nicotine dependence; Z79.899 Other long term (current) drug therapy
CPT/HCPCS: 73501; 80048; 80053; 83735; 84484; 85025; 85027; 86850; 86900; 86901; 88300; 93005; 93306

== ENCOUNTER → 2022-01-05 | Outpatient (CLI) | payer MEDICARE, OTHER ==
[2022-01-05 12:56] VITALS: BP 171/98; PULSE 81; RESP 18; TEMP 98.1
--- NOTE | 2022-01-05 14:53 | P.PAINPG ---
Objective - Vital Signs Vital signs: Intake & Output 01/04/22 01/05/22 01/05/22 18:59 06:59 18:59 Weight 54.431 kg PQRS Measure Charge Sheet Comment: HISTORY OF PRESENT ILLNESS: 61 yr old female as a referral from [facility] presents today w severe and chronic LBP secondary to DDD, spondylosis and facet arthropathy without myelopathy for an evalatuion. Pt states her pain level is currently at 7/10 in intensity, constant, localized in the lower lumbar spine, achy in character w radiation to the BLEs. Pain is provoked as high as 10/10 in intensity by being sedentary for periods of 30 min or more. She can not afford PT on her insurance. Palliated w chiropractic treatments twice weekly in 2019, heat, ice, medications (Ruffin, Mobic), +Cannabis, topicals, laying supine, repositioning and rest. Pt states she completed MRI of the lumbar spine at Dr Prieto' office. Will have pt sign MILO form to obtain records. PMH: GERD, Hyperlipidemia, Memory Impairment, OA, RA, ADD/ADHD, MDD/ Anxiety PSH: L Hip Arthroplasty (September 2021), Hx Subdural Hematoma, Appendectomy, Section, Hysterectomy, Joint Replacement, Orthopedic Surgery, Tonsillectomy, L Wrist ORIF, Sinus Surgery, BL Cataract Resection w Implants, B Shoulder Arthroplasty, Colonoscopy SH: Former tobacco user, +Cannabis, No ETOH abuse FH: Mo- No Reported History, Fa- CA. All: PCN Meds: See list REVIEW OF ORGAN SYSTEMS: CONSTITUTIONAL: No fevers or chills. No recent weight loss. NEUROLOGICAL: + numbness and tingling along the distal extremities. No seizure disorders or headaches. MUSCULOSKELETAL: + pain PSYCHIATRIC: Denies current depression or suicidal thoughts. Physical Examinations : Constitutional : Cooperative , not in acute distress . Neurologic : Cranial nerve II to XII intact. No focal neurological deficits. Psychiatric : alert & oriented x 3. Matching mood & appropriate affect. Judgment & insight intact. Musculoskeletal : Cervical Spine Motor strength in the deltoid and biceps: Normal right side. Normal Left side Motor strength biceps and the wrist extensors: Normal right side . Normal left side Motor strength in the triceps muscle: Normal right side. Normal left side Deep tendon reflexes: Normal at the biceps. Normal at Brachioradialis. Normal at triceps Vertebral body tenderness to deep palpation over Cervical facet loading test: positive bilaterally Spurling test: positive bilaterally Neck distraction test: positive bilaterally Amy sign: positive bilaterally Lumbar spine Motor strength lower extremities ,thigh and legs 5/5 Right side , 5/5 Left side Deep tendon reflexes : Normal Knee Jerk. Normal Ankle Jerk Vertebral body tenderness over L4, L5 Lumbar facet Loading Test: positive Right / positive Left Range of motion of the lumbar spine Flexion 30 degrees, extension 10 degrees Straight Leg Raise test: Left/ Right positive at degree Andie test: positive right / positive left. Severe tenderness over the Sacroiliac joint on the Right / Left sides Gaenslen test: positive bilaterally Seated flexion test: positive bilatera lly. Sacral spine : Severe tenderness over the Sacroiliac joint: right side / left side Range of motion: Flexion of the lumbar spine <60 degrees Range of motion: Extension of the lumbar spine <20 degrees Gaenslen's Test positive Servando's Test positive Andie test: positive right side / left side Thigh Thrust Test Sacral Thrust Test Imaging: X-ray of the lumbar spine from 02/23/21 reviewed Assessment/ Plan : Lumbar DDD, lumbar spondylosis Obtaining records, per pt request, from Dr Prieto' office. Otherwise, recommendation of MRI without contrast of the lumbar spine re: M51.46. Pt may return to this clinic within 2 wks for a reevaluation. All questions answered. I have spent greater than 30 minutes on patient care today. Dr Blanca was available by phone for the evaluation of this patient. The time was used to review the medical records including relevant urine studies and Prescription history (MAPs), review of the available imaging, evaluation and examination of the patient, coordination of care with the medical staff and if applicable referring physicians, as well as creation of the medical record - Pain Location Lower Back Non-Pharmacological Interventions: Heat, Ice, Inactivity, Stretching Pharmacological Interventions: Medication, PRN Medication PQRS Narrative: Pain Intensity [Lower Back] 7 Scale Used Numeric (1 - 10) Home Medications: Ambulatory Orders ALPRAZolam [Xanax] 1 mg PO HS 01/27/20 FLUoxetine HCL [PROzac] 60 mg PO QAM 01/27/20 Omeprazole 40 mg PO QAM 01/27/20 buPROPion HCL [Wellbutrin SR] 150 mg PO QAM 01/27/20 Meloxicam 15 mg PO DAILY 09/17/21 Atorvastatin [Lipitor] 10 mg PO DAILY 01/04/22 Baclofen 10 mg PO TID PRN 01/04/22 Collagen/Bone Broth 1 dose PO DIRECTED 01/04/22 Cyanocobalamin [Vitamin B-12 Injection] 1,000 mcg SQ WEEKLY 01/04/22 Dextroamphetamine/Amphetamine [Adderall] 5 mg PO DAILY 01/04/22 Naproxen Sodium [Aleve] 440 mg PO DIRECTED PRN 01/04/22 Ruffin (Unknown Dose) 1 dose PO DIRECTED PRN 01/04/22 Controlled Substance Measures - Controlled Substance Measures Is patient prescribed a controlled substance at discharge?: No
== END ==
LOC: PNWHC3 12:09
PROVIDERS: ATTEND Specialist
DX: M47.816 Spondylosis without myelopathy or radiculopathy, lumbar region (principal); M51.36 Other intervertebral disc degeneration, lumbar region; M51.46 Schmorl's nodes, lumbar region
CPT/HCPCS: 99211

== ENCOUNTER → 2022-02-01 | Outpatient (CLI) | payer MEDICARE, OTHER ==
--- NOTE | 2022-02-01 09:25 | MR ---
EXAMINATION TYPE: MR lumbar spine wo con DATE OF EXAM: 02/01/2022 COMPARISON: Prior MRI lumbar spine 03/16/2021 from outside institution, plain film 02/23/2021 HISTORY: Degenerative disc disease TECHNIQUE: Multiplanar, multisequence images of the lumbar spine were acquired without IV contrast. L1-L2: Minimal posterior disc bulge causes slight anterior mass effect on the thecal sac. There is fa cet arthropathy causing minimal posterior lateral mass effect on the thecal sac. L2-L3: Posterior broad-based disc bulge causes mild anterior mass effect on the thecal sac. Facet art hropathy with hypertrophy ligamentum flavum causes posterior lateral mass effect on the thecal sac. N o significant foraminal encroachment present on the right, circumferential extension of endplate disc complex encroaches minimally on the inferior aspect of the foramen on the left L3-L4: There is eccentric disc bulge extending posteriorly and towards the right causing some anterol ateral mass effect on the thecal sac. Circumferential extension of endplate disc complex causes some minimal foraminal encroachment inferior aspect of the foramen on the right. Facet arthropathy with hy pertrophy ligamentum flavum causes posterior lateral mass effect on the thecal sac. L4-L5: There is posterior central disc protrusion causing some anterior mass effect on the thecal sac . Hypertrophic changes are present of the ligamentum flavum, there is facet arthropathy causing some posterior lateral mass effect on the thecal sac greater on the left. Circumferential extension endpla te disc complex causes bilateral foraminal encroachment. L5-S1: Normal disc appearance without desiccation. No herniation, protrusion or disc bulging. No ca nal stenosis is present. Foramina are patent bilaterally. Facet arthropathy changes present. Lumbar segments are intact. No paraspinal masses are identified. Conus medullaris has a normal appe arance. There is multilevel spondylosis. Loss of disc height and signal is present at intervertebral levels consistent with disc desiccation and degenerative disc disease at L2-3, L3-4, L4-5 as on prior exam. Lumbar vertebral bodies show preserved height. There is no significant spinal stenosis. Tarlov cysts noted over the sacral region. IMPRESSION: Multilevel degenerative disc disease, facet arthropathy is similar to prior exam.
== END | disposition home or self-care (01) ==
LOC: RADMRIMAIN 08:31
PROVIDERS: ATTEND Specialist
DX: M51.36 Other intervertebral disc degeneration, lumbar region (principal); M47.816 Spondylosis without myelopathy or radiculopathy, lumbar region
CPT/HCPCS: 72148

== ENCOUNTER → 2022-03-24 | Outpatient (CLI) | payer MEDICARE, OTHER ==
[2022-03-24 14:26] VITALS: BP 151/92; PULSE 102; RESP 18; TEMP 97.9
--- NOTE | 2022-03-24 14:34 | P.PAINPG ---
PQRS Measure Charge Sheet Comment: A 61 yr old female with a history of severe and chronic low back pain secondary to lumbar DDD and spondylosis with facet arthropathy without myelopathy presents today for MRI results. Pain level is currently at 7 /10 in intensity, constant, localized in the BL lower lumbar spine, achy/ sore in character w shooting towards . Pain is provoked by any bending, lifting. Pain is alleviated with massage therapy as needed, chiropractic treatments in 2019, heat, ice, medications (Mobic, Flexeril, BioFreeze), repositioning and rest. Interventional pain procedures completed include Denies Patient is currently on Mobic, Flexeril, Topical Biofreeze gel Patient denies any side effects of the medication(s), denies excessive drowsiness or sleepiness, denies suicidal ideation and reports that the current pain medication is helping to control the pain and improve activities of daily living. Patient denies any motor or sensory deficits. Patient denies any fever or night sweats, denies any change in the bowel movements or urination. Physical Examination: -Constitutional: Cooperative. Not in acute distress . - Neurologic: Cranial nerve II to XII intact. No focal neurological deficits. - Psychatric: Alert & oriented x 3. Matching mood & appropriate affect. Judgment and insight intact. - Musculoskeletal: Cervical spine: Muscle bulk/ tone/ strength in the bilateral upper extremities normal Vertebral body tenderness to palpation over Spurling test positive Distraction test positive Facet loading test positive Thoracic spine Muscle bulk / tone/ strength in the bilateral paraspinal muscles normal Vertebral body tender to palpation over Facet loading test positive Lumbar spine: Motor bulk/ tone/ strength lower extremities , thigh and legs : 5/5 Deep tendon reflexes : Normal Knee Jerk. Normal Ankle Jerk . Vertebral body tenderness to palpation over L4 Lumbar Facet Loading Test positive Straight Leg Raise: positive at 30 degrees right side/ left side Gaenslen's Test positive Sacral spine : Severe tenderness over the Sacroiliac joint: right side / left side Range of motion: Flexion of the lumbar spine <60 degrees Range of motion: Extension of the lumbar spine <20 degrees Gaenslen's Test positive Andie test: positive right side / left side Thigh Thrust Test Sacral Thrust Test Imaging: MRI without contrast of the lumbar spine from 02/01/22 reviewed Assessment and plan: Chronic low back pain secondary to lumbar degenerative disc disease, spondylosis with facet arthropathy without myelopathy Recommendation of AL L4-L5. May need a series of injections, up to 3 within a 6 mo period, for optimal pain relief. Risks, benefits of procedure discussed and pt verbalized understanding. Admits to anticoagulant use or medical history of diabetes. Protocol for discontinuation/ continuation of medications liam procedure discussed. All patient questions answered for I have spent less than 30 minutes on patient care today. Dr Blanca was available by phone for the evaluation of this patient. The time was used to review the medical records including relevant urine studies and Prescription history (MAPs), review of the available imaging, evaluation and examination of the patient, coordination of care with the medical staff and if applicable referring physicians, as well as creation of the medical record PQRS Narrative: Hx Alcohol Use (MH) Yes Home Medications: Ambulatory Orders ALPRAZolam [Xanax] 1 mg PO HS 01/27/20 FLUoxetine HCL [PROzac] 60 mg PO QAM 01/27/20 Omeprazole 40 mg PO QAM 01/27/20 buPROPion HCL [Wellbutrin SR] 150 mg PO QAM 01/27/20 Meloxicam 15 mg PO DAILY 09/17/21 Atorvastatin [Lipitor] 10 mg PO DAILY 01/04/22 Baclofen 10 mg PO TID PRN 01/04/22 Collagen/Bone Broth 1 dose PO DIRECTED 01/04/22 Cyanocobalamin [Vitamin B-12 Injection] 1,000 mcg SQ WEEKLY 01/04/22 Dextroamphetamine/Amphetamine [Adderall] 5 mg PO DAILY 01/04/22 Naproxen Sodium [Aleve] 440 mg PO DIRECTED PRN 01/04/22 [place] (Unknown Dose) 1 dose PO DIRECTED PRN 01/04/22 Controlled Substance Measures - Controlled Substance Measures Is patient prescribed a controlled substance at discharge?: No
== END ==
LOC: PNWHC3 13:13
PROVIDERS: ATTEND Specialist
DX: M47.816 Spondylosis without myelopathy or radiculopathy, lumbar region (principal); M51.36 Other intervertebral disc degeneration, lumbar region; Z88.0 Allergy status to penicillin
CPT/HCPCS: 99211

== ENCOUNTER 2022-04-21 12:58 | Day surgery (SDC) | payer MEDICARE, OTHER ==
[2022-04-21 13:38] VITALS: RESP 16; TEMP 97
[2022-04-21] MEDS ORDERED: LACTATED RINGERS 1,000 ML IV SCH (13:38)
[2022-04-21] MEDS ORDERED: LIDOCAINE 1% (10MG/ML) FOR IV START INTRADERMA PRN (13:38)
[2022-04-21] MEDS ORDERED: fentaNYL (PF) 50 MCG/ML 2 ML AMP ONE (13:47)
[2022-04-21] MEDS ORDERED: IOPAMIDOL M200 10 ML VIAL ONE (13:47)
[2022-04-21] MEDS ORDERED: methylPREDNISolone ACETATE 80 MG/ML 1 ML VIAL ONE (13:47)
[2022-04-21] MEDS ORDERED: MIDAZOLAM 2 MG/2 ML VIAL ONE (13:47)
--- NOTE | 2022-04-21 13:59 | P.PCN ---
Date of Procedure: 04/21/22 Procedure(s) Performed: PREOPERATIVE DIAGNOSIS: 1- Lumbar Degenerative Disc Diseases 2-Lumbar spondylosis with Facet arthropathy without myelopathy. POSTOPERATIVE DIAGNOSIS: Same as preop diagnosis. PROCEDURE 1. Lumbar epidural steroid injection under fluoroscopic guidance at the L4-5 level. (Fluoroscopy imaging was available in radiology department) 2. Lumbar epidurogram. ANESTHESIA: moderate sedation with intravenous Versed 2 mg ,and fentanyle 50 Mcg Sedation start time : 1348 Sedation end time : 1356 EBL: Minimal PROCEDURE INDICATION: The patient with low back pain and radiculitis symptoms unresponsive to conservative treatment. Fluoroscopy was used to optimize visualization of the needle placement and to maximize safety. PROCEDURE DESCRIPTION / TECHNIQUE: The patient was seen and identified in the preoperative area. Risks, benefits, complications including but not limited to infections ,bleeding ,allergic reaction to the medications ,nerve damage and not complete pain releife , and alternatives were discussed with the patient. The patient agreed to proceed with the procedure and signed the consent. IV was started, and vital signs were stable. Patient was taken to the OR and time out was completed. The patient was placed in the prone position on procedure table and a pillow was placed under the abdomen to reduce lumbar lordosis. The lumbosacral area was prepped and draped in the usual sterile fashion.ere closely monitored during the procedure. Conscious sedation was used during the procedure to decrease patients anxiety. Vital signs was monitered during the entire procedure. Using anterior-posterior fluoroscopy, the L4-5 interlaminar space was identified and the skin over this site was marked and then infiltrated with 1% lidocaine subcutaneously. Subsequently, a 18-gauge Tuohy epidural needle was inserted and advanced toward the epidural space using the ``Loss of resistance technique and guided by AP and lateral fluoroscopy. The correct needle position in the e pidural space was verified with the injection of 2 mL of the water soluble contrast dye Isovue 300 contrast and observing an excellent epidurogram with the epidural spread of the dye, after negative aspiration for blood and CSF and in the absence of paresthesias. Again after negative aspiration, a 6 ml mixture containing 80 mg of Depo-medrol ( Preservetive Free ), and 2 ml of preservative free Normal Saline, and 2 ml of preservative free lidocaine 1% solution was injected and a washout of epidurogram was seen. Needle was withdrawn intact, skin was cleansed, and bandages were applied. COMPLICATIONS: None DISPOSITION / PLANS: The patient was placed in a supine position and transferred to the recovery area in a stable condition for observation. There was no evidence of lower extremity motor or sensory deficit after the procedure. Patient was discharged from the recovery room after meeting discharge criteria. Home discharge instructions were given to the patient by the staff. The patient was reexamined prior to discharge. The patient will schedule a follow up in the clinic in 2-4 weeks.
[2022-04-21] MEDS ORDERED: IV FLUID CONTINUATION 1,000 ML IV ONE ×2 (14:00)
[2022-04-21 14:33] VITALS: BP 147/84; PULSE 92
--- NOTE | 2022-04-21 15:31 | FL ---
EXAMINATION TYPE: FL guided pain mgmt statistic DATE OF EXAM: 04/21/2022 CLINICAL HISTORY: Low back pain. TECHNIQUE: Fluoroscopy. COMPARISON: None. FINDINGS: Fluoroscopic guidance was provided during pain relief procedure performed by Dr. Blanca . A total of 2 seconds of fluoroscopic time was utilized during the procedure and 1 spot images are acquired. Single image acquired shows needle localization in the lower lumbar spine. IMPRESSION: As Above.
== END 2022-04-21 14:43 | disposition home or self-care (01) ==
LOC: ORPAIN 12:58
PROVIDERS: ATTEND Specialist
DX: M51.16 Intervertebral disc disorders with radiculopathy, lumbar region (principal); M47.26 Other spondylosis with radiculopathy, lumbar region; Z88.0 Allergy status to penicillin
CPT/HCPCS: 62323; 99152; J2250; J1040; J3010; Q9966

== ENCOUNTER → 2023-03-15 | Outpatient (CLI) | payer MEDICARE, OTHER ==
--- NOTE | 2023-03-17 05:56 | MR ---
EXAMINATION TYPE: MR knee RT wo con DATE OF EXAM: 03/15/2023 COMPARISON: Outside right knee x-ray August 22, 2022 HISTORY: Right knee pain, locking and swelling for 1 year. Unilateral primary osteoarthritis. TECHNIQUE: Multiplanar, multisequence images of the knee is performed without IV contrast. FINDINGS: MEDIAL MENISCUS: Obliquely and triangular shaped increased signal posterior horn extending to inferio r articular surface. LATERAL MENISCUS: Anterior and posterior horns are intact without tear. CRUCIATE LIGAMENTS: The anterior and posterior cruciate ligaments are intact and unremarkable. COLLATERAL LIGAMENTS: The medial collateral ligament and lateral collateral ligament complex are inta ct and unremarkable. EXTENSOR MECHANISM: Visualized quadriceps and patellar tendons are intact. EFFUSION: No significant suprapatellar joint effusion. POPLITEAL CYST: No popliteal/lynn cyst. TRICOMPARTMENT SPACES: Mild to moderate tricompartment joint space loss greatest patellofemoral scott rtment. No significant spurring. CARTILAGE: Tricompartmental articular cartilage fairly well preserved. BONE MARROW SIGNAL: No focal abnormal marrow signal is appreciated. OTHER: No additional significant abnormality is appreciated. IMPRESSION: 1. Full-thickness tear posterior horn medial meniscus. 2. Mild to borderline moderate tricompartment degenerative changes as detailed above.
== END | disposition home or self-care (01) ==
LOC: RADMRIMAIN 17:21
PROVIDERS: ATTEND Family Medicine
DX: M23.221 Derangement of posterior horn of medial meniscus due to old tear or injury, right knee (principal); M17.11 Unilateral primary osteoarthritis, right knee

== ENCOUNTER → 2024-01-29 | Outpatient (CLI) | payer MEDICARE, OTHER | END | disposition home or self-care (01) | LOC: LABPAT 13:30 | PROVIDERS: ATTEND Orthopaedic Surgery | CPT/HCPCS: 86850; 86900; 86901; 87070 ==

== ENCOUNTER 2024-02-06 05:38 | Observation (INO) | payer MEDICARE, OTHER ==
--- NOTE | 2024-02-05 08:17 | P.HPOR ---
History of Present Illness H&P Date: 02/05/24 Chief Complaint: Right hip pain The patient is a 63-year-old female who presents with progressive right hip pain for the past year. She notes stiffness and pain with weightbearing activities. She notes it severely limits her. She's been limping. She tried medications without much relief. Review of Systems Per HPI Past Medical History Past Medical History: GERD/Reflux, Hyperlipidemia, Hypertension, Memory Impairment, Osteoarthritis (OA), Rheumatoid Arthritis (RA) Additional Past Medical History / Comment(s): IBS, HX FALL WITH SUBDURAL HEMATOMA (2018), SHORT TERM MERMORY LOSS, CHRONIC SINUSITIS, LOW BACK PAIN, occasional SOB, bruises easily. History of Any Multi-Drug Resistant Organisms: None Reported Past Surgical History: Appendectomy, Section, Hysterectomy, Joint Replacement, Orthopedic Surgery, Tonsillectomy Additional Past Surgical History / Comment(s): ORIF LEFT WRIST. SINUS SURG. CATARACTS WITH IMPLANTS. GARIMA TOTAL SHOULDER. TOTAL LEFT HIP. BRAIN SURGERY - SUBDURAL HEMATOMA. Past Anesthesia/Blood Transfusion Reactions: No Reported Reaction Smoking Status: Former smoker - Past Family History Mother Family Medical History: No Reported History Father Family Medical History: Cancer Additional Family Medical History / Comment(s): bile duct ca Medications and Allergies Home Medications Medication Instructions Recorded Confirmed Type ALPRAZolam [Xanax] 1 mg PO BID PRN 01/27/20 02/01/24 History FLUoxetine HCL [PROzac] 60 mg PO QAM 01/27/20 02/01/24 History buPROPion HCL [Wellbutrin SR] 200 mg PO QAM 01/27/20 02/01/24 History Meloxicam 15 mg PO DAILY 09/17/21 02/01/24 History Atorvastatin [Lipitor] 40 mg PO HS 01/04/22 02/01/24 History Collagen/Bone Broth 1 dose PO DIRECTED 01/04/22 02/01/24 History Cyanocobalamin [Vitamin B-12 1,000 mcg SQ WEEKLY 01/04/22 02/01/24 History Injection] Naproxen Sodium [Aleve] 440 mg PO DIRECTED PRN 01/04/22 02/01/24 History Albuterol Inhaler [Ventolin Hfa 1 - 2 puff INHALATION Q6H PRN 02/01/24 02/01/24 History Inhaler] Baclofen 10 mg PO TID PRN 02/01/24 02/01/24 History Dicyclomine [Bentyl] 10 mg PO TID 02/01/24 02/01/24 History Fluticasone Nasal [place] [Flonase 1 spray EA NOSTRIL DAILY 02/01/24 02/01/24 History Nasal [place]] Loratadine-Pseudoeph 5-120 mg 1 tab PO Q12HR PRN 02/01/24 02/01/24 History [Claritin-D 12 Hour] Metoprolol Succinate [Toprol XL] 50 mg PO DAILY 02/01/24 02/01/24 History Montelukast [Singulair] 10 mg PO DAILY 02/01/24 02/01/24 History Pantoprazole [Protonix] 40 mg PO DAILY 02/01/24 02/01/24 History Allergies Allergy/AdvReac Type Severity Reaction Status Date / Time Penicillins Allergy Rash/Hives Verified 02/01/24 10:24 Physical Examination - Hip right Gait: antalgic Tenderness with palpation: anterior Pain with motion: internal rotation and hip flexion ROM: flexion: 90 degrees ROM: internal rotation: 0 degrees (With pain) ROM: external rotation: 60 degrees Strength: flexion: 5/5 Strength: abduction: 5/5 Tests: impingement tests: positive Results The patient is a well-developed well-nourished female approximately 5 foot 1, 125 pounds of mesomorphic habitus. HEENT exam is nonfocal, neck supple. She has painful passive motion of the right hip. Straight leg raise negative. Her distal neurovascular exam appears intact in the right lower extremity. - Diagnostic results Hip x-ray: image reviewed (X-rays of the right hip obtaining office show severe osteoarthrosis with [id number] changes along with subchondral sclerosis.) Assessment and Plan Assessment: Right hip severe osteoarthrosis Plan: I talked with the patient length regarding her condition along with treatment options. At this point she is quite symptomatic having pain despite conservative measures. After a thorough discussion she opts to proceed with surgery. We will plan to proceed with right total hip arthroplasty utilizing an anterior approach. Risks and benefits were discussed at length in layman's terms. We will institute DVT prophylaxis postoperative.
[~2024-02-06 05:38] MED LIST changes: -ACETAMINOPHEN TAB 500 MG TAB PO PRN; -DEXAMETHASONE SOD PHOSPHATE 4 MG/ML 1 ML VIAL IV ONE; -LIDOCAINE 1% (10MG/ML) FOR IV START INTRADERMA PRN; -MELOXICAM 7.5 MG TAB PO PRN; -MIDAZOLAM 2 MG/2 ML VIAL IV PRN; -ONDANSETRON 4 MG/2 ML VIAL IVP ONE; +TRANEXAMIC 1,000 MG/100ML-NACL 1,000 MG in SALINE 1 100ML.BAG IVPB PRN; -TRANEXAMIC ACID IN NACL,ISO-OS 1,000 MG in SALINE 1 100ML.BAG IVPB PRN
[2024-02-06] MEDS ORDERED: LIDOCAINE 1% (10MG/ML) FOR IV START INTRADERMA PRN (06:25)
[2024-02-06] MEDS: IV FLUID CONTINUATION 1,000 ML IV ONE (06:40)
[2024-02-06] MEDS: MELOXICAM 7.5 MG TAB PO PRN (06:49)
[2024-02-06] MEDS: LACTATED RINGERS 1,000 ML IV SCH (06:49)
[2024-02-06] MEDS: ACETAMINOPHEN TAB 500 MG TAB PO PRN (06:49)
[2024-02-06] MEDS: DEXAMETHASONE SOD PHOSPHATE 4 MG/ML 1 ML VIAL IV ONE (06:49)
[2024-02-06] MEDS: fentaNYL (PF) 50 MCG/ML 2 ML AMP IVP STA (06:56)
[2024-02-06] MEDS: MIDAZOLAM 2 MG/2 ML VIAL IV ONE (06:56)
[2024-02-06] MEDS: ONDANSETRON 4 MG/2 ML VIAL IVP ONE (07:11)
[2024-02-06] MEDS ORDERED: MIDAZOLAM 2 MG/2 ML VIAL ONE (07:40)
[2024-02-06] MEDS ORDERED: TRANEXAMIC 1,000 MG/100ML-NACL PREMIX BAG ONE (07:40)
[2024-02-06] MEDS ORDERED: ROPIVACAINE 5 MG/ML 30 ML VIAL ONE (07:40)
[2024-02-06] MEDS ORDERED: fentaNYL (PF) 50 MCG/ML 2 ML AMP ONE (07:40)
[2024-02-06] MEDS ORDERED: PROPOFOL 10 MG/ML 20 ML VIAL IV ONE (07:40)
[2024-02-06] MEDS: ceFAZolin 3,000 MG in SODIUM CHLORIDE 0.9% IRRIGATIO 3,000 ML IRRIGATION ONE (08:16)
--- NOTE | 2024-02-06 09:06 | P.ANPRN ---
Procedure Note - Anesthesia - Nerve Block Performed Right Jeffery Single Time Out Performed: Yes ([id number]) Date of Procedure: 02/06/24 Procedure Start Time: 06:57 Procedure Stop Time: 07:03 Location of Patient: PreOp Indication: Acute Post-Operative Pain, Requested by Surgeon Specifically requested for management of pain by DrCedric: Dick Gaines Sedation Type: Sedate with meaningful contact maintained Preparation: Sterile Prep Position: Supine Catheter: None Needle Types: Pajunk Needle Gauge: 21 Ultrasound used to visualize needle placement: Yes Ultrasound used to observe medication spread: Yes Injectate: 0.5% Ropivacaine (see comment for volume) (30cc) Blood Aspirated: No Pain Paresthesia on Injection Noted: No Resistance on Injection: Normal Image Stored and Saved: Yes Events: Uneventful and Well Tolerated
[2024-02-06] MEDS ORDERED: HYDROcodone/APAP 5-325MG 1 EACH TAB PO PRN (09:20)
[2024-02-06] MEDS ORDERED: hydrOXYzine pamoate 25 MG CAP PO PRN (09:20)
[2024-02-06] MEDS ORDERED: NALOXONE 0.4 MG/ML 1 ML VIAL IV PRN (09:20)
[2024-02-06] MEDS ORDERED: MAGNESIUM HYDROXIDE 2,400 MG/30 ML CUP PO PRN (09:20)
--- NOTE | 2024-02-06 09:25 | FL ---
EXAMINATION TYPE: FL guidance operating room, XR Hip Limited RT DATE OF EXAM: 02/06/2024 9:09 AM COMPARISON: Pre Operative Images if available both CT/MRI or plain film CLINICAL INDICATION: Female, 63 years old with history of RIGHT HIP OSTEOARTHRITIS M16.11; TECHNIQUE: FL guidance operating room, XR Hip Limited RT, multiple fluoroscopic images provided for p rocedure. Total fluoroscopy time: 15.2 seconds Total submitted images to PACS: 4 DAP: 0.4084 mGym2 Gycm2 uGym2 cGycm2 or equivalent. FINDINGS: Fluoroscopic images during internal fixation/arthroplasty demonstrate fixation hardware in appropriat e position. Hardware appears intact. No immediate complication identified. IMPRESSION: 1. No evidence for intraoperative complication. 2. Please see the operative/procedural note for further details. [facility], , 02/06/2024 9:22 AM
--- NOTE | 2024-02-06 09:36 | P.OP ---
Date of Procedure: 02/06/24 Preoperative Diagnosis: Right hip severe osteoarthrosis Postoperative Diagnosis: Same Procedure(s) Performed: Right total hip arthroplastypress-fitanterior approach Implants: DePuy Corail size 12-125 degreecollared press-fit femoral stem, 36+5 ceramic femoral head, 54 mm [place] acetabular shell with neutral polyethylene liner. Anesthesia: spinal Surgeon: Dick Gaines Audio Visual Arts Director #1: Long Angulo Estimated Blood Loss (ml): 250 Pathology: none sent Condition: stable Disposition: PACU Indications for Procedure: The patient is a 63-year-old female who presents with progressive right hip pain secondary to osteoarthrosis despite conservative measures. A discussion of the risks and benefits of operative intervention versus continued conservative measures was made with the patient. She opted to proceed with surgery. Ope rative risks include infection, neurovascular injury, development of blood clots, leg length discrepancy, fracture, possible instability, possible component loosening/failure and possible need for subsequent procedures was discussed. Informed consent was obtained. Operative Findings: As below Description of Procedure: The patient was brought to the operating room, and after induction of spinal anesthesia was placed supine on the June table. Positioning was checked with fluoroscopy. The right hip was then prepped and draped in a normal fashion. A 12 cm incision was then made starting 2 fingerbreadths distal and 3 finger breaths posterior to the ASIS in line with the proximal femur. The skin was incised sharply. Subcutaneous tissues were divided sharply. Electrocautery was used for hemostasis. The fascia was split in line with skin incision. The interval between the sartorius and tensor fascia demi was then bluntly developed. The posterior fascia was opened with electrocautery. The lateral circumflex vessels were identified and cauterized prior to sectioning. A retractor was placed along the superior femoral neck as well as the anterior acetabular rim. A wide capsulotomy was performed. The neck cut was then made at a 45 angle to the shaft approximately 1 1/2 cm above the level of the lesser trochanter. The head was extracted. Attention was then paid towards preparing the acetabular. Anterior and posterior retractors were placed. The remaining capsular labral tissue sharply debrided clearly defining the a cetabular margins. I began reaming with a 49 mm reamer taking care to initially medialize then reaming at 45 of abduction and 20 of anteversion. Sequential reaming is performed up to 53 mm. A trial 54 mm acetabular shell was inserted in the same orientation and was fully seated. There was good rim fit and stability. Positioning was checked with fluoroscopy. The final 54 mm acetabular shell was inserted again at 45 of abduction and 20 of anteversion. This was fully seated. There was good rim fit and stability. Again fluoroscopy was used to check the adequacy of placement. A neutral polyethylene liner was gently impacted. Care was taken to avoid any soft tissue interposition. Pulsatile lavage was utilized. Attention was then paid towards preparing the proximal femur. The central region was cleared of soft tissue. A canal finder was used to find the femoral canal. Sequential broaching was performed up to size 12 taking care to lateralize proximally. A calcar mill was used to fashion the medial calcar. There was good rotational stability. A 125 degree neck along with a 36 mm +5 head was placed. The hip was gently reduced. Fluoroscopy was used to check the adequacy of positioning along with leg lengths. I felt both were good. The hip was gently dislocated. The trial components were removed. The final size 12-125 degree collared press-fit femoral stem was inserted parallel to the posterior cortex. This was fully seated and there was good rotational stability. A 36 mm +5 ceramic femoral head was placed. This was gently impacted. The hip was then gently reduced. Final fluoroscopic view showed adequate placement implant along with church of leg length. Stability was checked with 80 of external rotation and 60 of extension of the right hip. The wound was irrigated with sterile lavage. The fascia was closed with running 0 Vicryl suture. There was minimal drainage therefore a deep drain was not placed. The second dose of IV TXA was given. The subcutaneous tissues were reapproximated interrupted 2-0 Vicryl sutures. The skin was reapproximated with 3-0 subcuticular strata fix suture. Skin tape and adhesive was applied. A sterile dressing was applied. The patient was then awoken from sedation and transferred to recovery room in good condition. Blood loss was estimated at 250 mL. No complications were incurred. Sponge and needle counts were correct at the end of the case. Long OLMOS assisted during the major components is case to include exposure, bone resection, implantation, and closure.
--- NOTE | 2024-02-06 10:48 | XR ---
EXAMINATION TYPE: XR Hip Limited AP RT DATE OF EXAM: 02/06/2024 Comparison: Outside radiograph 01/04/2024 Clinical History: 63-year-old female Status post hip surgery, assess surgical alignment Findings: Image shows placement of right total hip arthroplasty. Acetabular cup and femoral stem components of the prosthesis appear well seated without periprosthetic fracture. Alignment grossly anatomic. Soft t issue air related to recent operation. Impression: Uncomplicated postoperative appearance right total hip arthroplasty. [facility], , 02/06/2024 10:46 AM
[2024-02-06] MEDS: HYDROmorphone 0.5 MG/0.5 ML SYRINGE IVP PRN ×2 (11:06→16:16)
[2024-02-06] MEDS ORDERED: ALBUTEROL NEBULIZED 2.5 MG/3 ML INHALATION PRN (11:31)
[2024-02-06] MEDS ORDERED: METOPROLOL SUCCINATE (ER) 50 MG TAB.ER.24H PO SCH (11:45)
[2024-02-06] MEDS: droPERidol 5 MG/2 ML VIAL IVP ONE (12:35)
[2024-02-06] MEDS: FLUoxetine HCL 20 MG CAP PO SCH (12:37)
[2024-02-06] MEDS: buPROPion SR 100 MG TABLET.ER PO SCH (12:37)
[2024-02-06] MEDS: HYDROcodone/APAP 7.5-325MG 1 EACH TAB PO PRN (13:38)
--- NOTE | 2024-02-06 13:55 | P.CONS ---
History of Present Illness - History of Present Illness 63-year-old female is admitted for right hip arthroplasty is having severe pain in the surgical site area. Patient does have history of hypertension her blood pressure is on the high side and patient has been resumed on her home regimen. REVIEW OF SYSTEMS: All other systems are negative except those mentioned in the HPI PHYSICAL EXAMINATION: GENERAL: The patient is alert and oriented x3, not in any acute distress. Well developed, well nourished. HEENT: Pupils are round and equally reacting to light. EOMI. No scleral icterus. No conjunctival pallor. Normocephalic, atraumatic. No pharyngeal erythema. No thyromegaly. CARDIOVASCULAR: S1 and S2 present. No murmurs, rubs, or gallops. PULMONARY: Chest is clear to auscultation, no wheezing or crackles. ABDOMEN: Soft, nontender, nondistended, normoactive bowel sounds. No palpable organomegaly. MUSCULOSKELETAL: No joint swelling or deformity. EXTREMITIES: No cyanosis, clubbing, or pedal edema. NEUROLOGICAL: Gross neurological examination did not reveal any focal deficits. SKIN: No rashes. Assessment and plan Right hip arthroplasty pain management and DVT prophylaxis as per primary service -Hyperlipidemia -History of rheumatoid arthritis Hypertension: Patient was resumed on home medications as her blood pressure is on the higher side DVT prophylaxis: As per primary service Past Medical History Past Medical History: GERD/Reflux, Hyperlipidemia, Hypertension, Memory Impairment, Osteoarthritis (OA), Rheumatoid Arthritis (RA) Additional Past Medical History / Comment(s): IBS, HX FALL WITH SUBDURAL HEMATOMA (2019), SHORT TERM MERMORY LOSS, CHRONIC SINUSITIS, LOW BACK PAIN, occasional SOB, bruises easily. History of Any Multi-Drug Resistant Organisms: None Reported Past Surgical History: Appendectomy, Section, Hysterectomy, Joint Replacement, Orthopedic Surgery, Tonsillectomy Additional Past Surgical History / Comment(s): ORIF LEFT WRIST. SINUS SURG. CATARACTS WITH IMPLANTS. GARIMA TOTAL SHOULDER. TOTAL LEFT HIP. BRAIN SURGERY - SUBDURAL HEMATOMA. Past Anesthesia/Blood Transfusion Reactions: No Reported Reaction Past Psychological History: ADD/ADHD, Anxiety, Depression Smoking Status: Former smoker Past Alcohol Use History: None Reported Additional Past Alcohol Use History / Comment(s): SMOKED FROM AGE 11 TO AGE 20, SMOKED 1PPD. Past Drug Use History: Marijuana Additional Drug Use History / Comment(s): CURRENT MARIJUANA USE- EDIBLES. Instructed no marijuana 24 hrs prior to surg. - Past Family History Mother Family Medical History: No Reported History Father Family Medical History: Cancer Additional Family Medical History / Comment(s): bile duct ca Medications and Allergies Home Medications Medication Instructions Recorded Confirmed Type ALPRAZolam [Xanax] 1 mg PO BID PRN 01/27/20 02/06/24 History FLUoxetine HCL [PROzac] 60 mg PO QAM 01/27/20 02/06/24 History buPROPion HCL [Wellbutrin SR] 200 mg PO QAM 01/27/20 02/06/24 History Meloxicam 15 mg PO DAILY 09/17/21 02/06/24 History Atorvastatin [Lipitor] 40 mg PO HS 01/04/22 02/06/24 History Collagen/Bone Broth 1 dose PO DIRECTED 01/04/22 02/06/24 History Cyanocobalamin [Vitamin B-12 1,000 mcg SQ WEEKLY 01/04/22 02/06/24 History Injection] Naproxen Sodium [Aleve] 440 mg PO DIRECTED PRN 01/04/22 02/06/24 History Albuterol Inhaler [Ventolin Hfa 1 - 2 puff INHALATION Q6H PRN 02/01/24 02/06/24 History Inhaler] Baclofen 10 mg PO TID PRN 02/01/24 02/06/24 History Dicyclomine [Bentyl] 10 mg PO TID 02/01/24 02/06/24 History Fluticasone Nasal [place] [Flonase 1 spray EA NOSTRIL DAILY 02/01/24 02/06/24 History Nasal [place]] Loratadine-Pseudoeph 5-120 mg 1 tab PO Q12HR PRN 02/01/24 02/06/24 History [Claritin-D 12 Hour] Metoprolol Succinate [Toprol XL] 50 mg PO DAILY 02/01/24 02/06/24 History Montelukast [Singulair] 10 mg PO DAILY 02/01/24 02/06/24 History Pantoprazole [Protonix] 40 mg PO DAILY 02/01/24 02/06/24 History Allergies Allergy/AdvReac Type Severity Reaction Status Date / Time Penicillins Allergy Rash/Hives Verified 02/06/24 06:20 Physical Exam Vitals: Vital Signs Temp Pulse Pulse Resp BP Pulse Ox 02/06/24 11:40 98.0 F 60 16 137/73 100 02/06/24 11:10 57 L 16 133/68 99 02/06/24 10:55 54 L 16 135/60 100 02/06/24 10:40 53 L 16 134/72 100 02/06/24 10:26 49 L 16 130/69 99 02/06/24 10:11 52 L 16 126/68 96 02/06/24 09:56 51 L 16 123/70 97 02/06/24 09:40 53 L 16 124/69 97 02/06/24 09:25 97.7 F 63 14 140/62 94 L 02/06/24 07:01 56 L 16 143/67 100 02/06/24 06:20 97.0 F L 50 L 18 169/72 99 Intake and Output 02/05/24 02/06/24 02/06/24 22:59 06:59 14:59 Intake Total 500 351 Output Total 250 Balance 500 101 Intake: IV 500 351 Output: Estimated Blood Loss 250 Other: Weight 55.2 kg 55.2 kg
[2024-02-06] MEDS: ATORVASTATIN 40 MG TAB PO SCH (20:14)
[2024-02-06] MEDS: ALPRAZolam 1 MG TAB PO PRN (20:14)
[2024-02-06] MEDS: SENNOSIDES-DOCUSATE SODIUM 1 EACH TAB PO SCH (20:14)
[2024-02-07] MEDS: HYDROmorphone 2 MG/ML 1 ML SYRINGE IVP PRN (04:51)
[2024-02-07 08:24] LABS: Basophils # (A) 0.01 X 10*3/uL (0.00-0.10); Basophils % (A) 0.2 %; Eosinophils # (A) 0.02 X 10*3/uL (0.04-0.35); Eosinophils % (A) 0.3 %; HCT 21.4 % (37.2-46.3); Lymphocytes # (A) 1.06 X 10*3/uL (0.90-5.00); Lymphocytes % (A) 18.2 %; MCH 30.7 pg (27.0-32.0); MCHC 32.7 g/dL (32.0-37.0); MCV 93.9 FL (80.0-97.0); Mean Platelet Volume 10.7 FL (9.5-12.2); Monocytes # (A) 0.69 X 10*3/uL (0.20-1.00); Monocytes % (A) 11.8 %; NRBC Per 100 WBC 0 X 10*3/uL (0.00-0.01); Neutrophils # (A) 4.03 X 10*3/uL (1.80-7.70); Platelet Count 116 X 10*3/uL (140-440); RBC 2.28 X 10*6/uL (4.10-5.20); RDW 12.6 % (11.5-14.5); WBC 5.84 X 10*3/uL (4.50-10.00)
[2024-02-07] MEDS: PANTOPRAZOLE 40 MG TABLET PO SCH (08:53)
[2024-02-07] MEDS: MONTELUKAST 10 MG TAB PO SCH (08:53)
[2024-02-07] MEDS: RIVAROXABAN 10 MG TAB PO SCH (08:53)
[2024-02-07] MEDS: FLUTICASONE NASAL 50MCG/SPRAY 16GM BTL EA NOSTRIL SCH (08:53)
[2024-02-07] MEDS: METOPROLOL SUCCINATE (ER) 50 MG TAB.ER.24H PO SCH (08:53)
--- NOTE | 2024-02-07 12:04 | P.PN ---
Subjective Progress Note Date: 02/07/24 Patient was seen at bedside this morning lying semirecumbent position with dressing present over hip on right lower extremity. Patient hoping to stay one more night for additional pain control. She says she has been up walking under her own power. Patient states PT/OT did go well this morning. Patient states she has urinated since surgery yesterday without issue. No bowel movement yet. Denies any other issues at this time. Objective - Vital Signs Vital signs: Vital Signs Temp 98.1 F 02/07/24 07:28 Pulse 68 02/07/24 07:28 Resp 15 02/07/24 07:28 BP 106/64 02/07/24 07:28 Pulse Ox 95 02/07/24 07:28 FiO2 Intake & Output 02/06/24 02/07/24 02/07/24 18:59 06:59 18:59 Intake Total 351 200 Output Total 250 Balance 101 200 Weight 55.2 kg Intake: IV 351 Oral 200 Output: Estimated Blood Loss 250 Other: # Voids 2 - Exam Right hip: Incision is clean, dry, and intact. The exofin fusion tape is in good condition. There is minimal soft tissue swelling and ecchymosis surrounding the medial and lateral aspects of the incision. Calf is soft, no tenderness with palpation. Plantar flexion, dorsiflexion, EHL, FHL are intact. Sensory exam to light touch throughout the extremity is intact, dorsal pedis pulses 2+. - Labs CBC & Chem 7: 02/07/24 02:58 Labs: Abnormal Lab Results - Last 24 Hours (Table) 01/29/24 02/07/24 Range/Units 14:03 02:58 RBC 2.28 L (4.10-5.20) X 10*6/uL Hgb 7.0 L (12.0-15.0) g/dL Hct 21.4 L (37.2-46.3) % Plt Count 116 L (140-440) X 10*3/uL Eosinophils # 0.02 L (0.04-0.35) X 10*3/uL Crossmatch See Detail Assessment and Plan Assessment: 1. Right hip osteoarthritis - Postoperative day 1 status post direct anterior right total hip arthroplasty Plan: 1. Severe left glenohumeral joint osteoarthrosis - direct anterior right total hip arthroplasty performed yesterday, 01/29/2024. Patient at bedside this morning stable with a dressing present to the right lower extremity. Hemoglobin 7.0. 1 unit PRBCs ordered. Repeat CBC this evening. Weightbearing as tolerated with walker and assistance as needed. Pending stabilized hemoglobin, plan for discharge home tomorrow with health services 2. Appreciate medical management 3. Pain management - norco; dilaudid 4. Dvt ppx - xarelto 5. GI ppx - senna 6. PT/OT - WBAT w/walker as needed 7. Encourage incentive spirometer use 8. Discharge planning - plan for discharge home tomorrow with health services Time with Patient: Less than 30
[2024-02-08 02:40] VITALS: RESP 16
--- NOTE | 2024-02-08 04:02 | P.PN ---
Subjective Progress Note Date: 02/07/24 - History of Present Illness 63-year-old female is admitted for right hip arthroplasty is having severe pain in the surgical site area. Patient does have history of hypertension her blood pressure is on the high side and patient has been resumed on her home regimen. 02/07/2024 Patient is seen in follow-up today with no acute overnight issues noted. Hemoglobin was noted to be 7 with history of anemia although patient has been feeling weak and does report some shortness of breath with exertion. Will transfuse 1 unit of PRBC and follow-up on repeat labs in AM. Encouraged incentive spirometer use at least 10 times every hour while awake. Patient be reevaluated by physical therapy in the a.m. Patient continues to report significant pain Review of systems: Constitutional: No reports of fatigue, fever, or chills Cardiovascular: No reports of chest pain or palpitations Respiratory: No reports of shortness of breath or cough GI: No reports of nausea, vomiting, or diarrhea : No reports of dysuria or retention Neurovascular: reports of generalized weakness right hip discomfort PHYSICAL EXAMINATION: GENERAL: The patient is alert and oriented x3, not in any acute distress. Well developed, thin build, elderly appearing HEENT: Pupils are round and equally reacting to light. EOMI. No scleral icterus. No conjunctival pallor. Normocephalic, atraumatic. No pharyngeal erythema. No thyromegaly. CARDIOVASCULAR: S1 and S2 present. No murmurs, rubs, or gallops. PULMONARY: Chest is clear to auscultation, no wheezing or crackles. ABDOMEN: Soft, nontender, nondistended, normoactive bowel sounds. No palpable organomegaly. MUSCULOSKELETAL: No joint swelling or deformity. Right hip dressing is dry and intact EXTREMITIES: No cyanosis, clubbing, or pedal edema. NEUROLOGICAL: Gross neurological examination did not reveal any focal deficits. SKIN: No rashes. Assessment and plan -Status post right total hip arthroplasty pain management and DVT prophylaxis as per primary service -Hyperlipidemia -History of rheumatoid arthritis -History of anemia -Hypertension -GI prophylaxis -DVT prophylaxis: As per primary service -Full code Plan: Patient's hemoglobin was found to be 7.0 and slightly symptomatic, will transfuse 1 unit of PRBC. Patient reports she does have history of anemia and looking back further in the medical record patient has had hemoglobins of 8 or less over the last few months Follow-up on repeat CBC and BMP in the morning. Replace electrolytes per protocol encouraged increase activity as tolerated with restrictions per orthopedics Patient to be reevaluated by physical therapy in the morning with plans on discharging in the next 24 hours Thank you kindly for this consultation. We will continue to follow with orthopedics during hospitalization. The impression and plan of care has been dictated by Gabriella Chin, Nurse Practitioner as directed. Dr. Jose MD I have performed a history and examination and MDM of this patient, discussed the same with the dictator, and agree with the dictator's assessment and plan as written ,documented as a scribe. Based on total visit time, I have performed more than 50% of the visit. Objective - Vital Signs Vital signs: Vital Signs Temp 98.1 F 02/07/24 07:28 Pulse 68 02/07/24 07:28 Resp 15 02/07/24 07:28 BP 106/64 02/07/24 07:28 Pulse Ox 95 02/07/24 07:28 FiO2 Intake & Output 02/06/24 02/07/24 02/07/24 18:59 06:59 18:59 Intake Total 351 200 Output Total 250 Balance 101 200 Weight 55.2 kg Intake: IV 351 Oral 200 Output: Estimated Blood Loss 250 Other: # Voids 2 - Labs CBC & Chem 7: 02/07/24 02:58 Labs: Abnormal Lab Results - Last 24 Hours (Table) 02/07/24 Range/Units 02:58 RBC 2.28 L (4.10-5.20) X 10*6/uL Hgb 7.0 L (12.0-15.0) g/dL Hct 21.4 L (37.2-46.3) % Plt Count 116 L (140-440) X 10*3/uL Eosinophils # 0.02 L (0.04-0.35) X 10*3/uL
[2024-02-08 07:02] VITALS: BP 119/69; PULSE 77; TEMP 98
[2024-02-08 08:41] LABS: Basophils # (A) 0.01 X 10*3/uL (0.00-0.10); Basophils % (A) 0.2 %; Eosinophils # (A) 0.02 X 10*3/uL (0.04-0.35); Eosinophils % (A) 0.3 %; HGB 8.8 g/dL (12.0-15.0); Lymphocytes # (A) 1.01 X 10*3/uL (0.90-5.00); Lymphocytes % (A) 17.6 %; MCH 30.3 pg (27.0-32.0); MCHC 33.8 g/dL (32.0-37.0); MCV 89.7 FL (80.0-97.0); Mean Platelet Volume 10.8 FL (9.5-12.2); Monocytes # (A) 0.74 X 10*3/uL (0.20-1.00); Monocytes % (A) 12.9 %; NRBC Per 100 WBC 0 X 10*3/uL (0.00-0.01); Neutrophils # (A) 3.93 X 10*3/uL (1.80-7.70); Neutrophils % (A) 68.3 %; Platelet Count 103 X 10*3/uL (140-440); RDW 13.2 % (11.5-14.5); WBC 5.75 X 10*3/uL (4.50-10.00)
[2024-02-08 08:46] LABS: BUN/Creat Ratio 10.29 Ratio (12.00-20.00); Blood Urea Nitrogen 7.2 mg/dL (9.0-27.0); Calcium 8.4 mg/dL (8.7-10.3); Carbon Dioxide 24.3 mmol/L (21.6-31.8); Chloride 96 mmol/L (96-109); Glucose 111 mg/dL (70-110); Potassium 4.2 mmol/L (3.5-5.5); Sodium 130 mmol/L (135-145)
--- NOTE | 2024-02-08 12:13 | P.PN ---
Subjective Progress Note Date: 02/08/24 Principal diagnosis: Right hip osteoarthritis Patient was seen at bedside this morning sitting up in chair with dressing present over hip on right lower extremity. Patient states her pain is under much better control today. She says she has been up walking under her own power. Patient states PT/OT did go well this morning. Patient states she has urinated since surgery yesterday without issue. No bowel movement yet. Denies any other issues at this time. Objective - Vital Signs Vital signs: Vital Signs Temp 98.0 F 02/08/24 07:02 Pulse 77 02/08/24 08:00 Resp 16 02/08/24 08:00 BP 119/69 02/08/24 07:02 Pulse Ox 96 02/08/24 07:02 FiO2 Intake & Output 02/07/24 02/08/24 02/08/24 18:59 06:59 18:59 Intake Total 310 Balance 310 Intake: Blood Product 310 Rc As-1 Unit 310 [id number] Other: # Voids 3 - Exam Right hip: Incision is clean, dry, and intact. The exofin fusion tape is in good condition. There is minimal soft tissue swelling and ecchymosis surrounding the medial and lateral aspects of the incision. Calf is soft, no tenderness with palpation. Plantar flexion, dorsiflexion, EHL, FHL are intact. Sensory exam to light touch throughout the extremity is intact, dorsal pedis pulses 2+. - Labs CBC & Chem 7: 02/08/24 04:09 02/08/24 04:09 Labs: Abnormal Lab Results - Last 24 Hours (Table) 01/29/24 02/08/24 02/08/24 Range/Units 14:03 04:09 04:09 RBC 2.90 L (4.10-5.20) X 10*6/uL Hgb 8.8 L (12.0-15.0) g/dL Hct 26.0 L (37.2-46.3) % Plt Count 103 L (140-440) X 10*3/uL Eosinophils # 0.02 L (0.04-0.35) X 10*3/uL Sodium 130 L (135-145) mmol/L BUN 7.2 L (9.0-27.0) mg/dL BUN/Creatinine Ratio 10.29 L (12.00-20.00) Ratio Glucose 111 H (70-110) mg/dL Calcium 8.4 L (8.7-10.3) mg/dL Crossmatch See Detail Assessment and Plan Assessment: 1. Right hip osteoarthritis - Postoperative day 2 status post direct anterior right total hip arthroplasty Plan: 1. Severe left glenohumeral joint osteoarthrosis - direct anterior right total hip arthroplasty performed 02/06/2024. Patient at bedside this morning stable with a dressing present to the right lower extremity. Hemoglobin 8.8 today. Weightbearing as tolerated with walker and assistance as needed. Discharge home today with health services 2. Appreciate medical management 3. Pain management - norco; dilaudid 4. Dvt ppx - xarelto in hospital; going home with aspirin 81 mg BID x 30 days 5. GI ppx - senna 6. PT/OT - WBAT w/walker as needed 7. Encourage incentive spirometer use 8. Discharge planning - discharge home today with health services Time with Patient: Less than 30
--- NOTE | 2024-02-08 12:20 | P.DS ---
Providers Date of admission: 02/07/24 13:16 Expected date of discharge: 02/08/24 Attending physician: Dick Gaines Consults: 02/06/24 09:20 Consult Physician Routine Consulting Provider: Alex Garcia Consult Reason/Comments: medical management s/p direct anterior right total hip arthroplasty Do you want consulting provider notified?: Yes Primary care physician: Patricia Grimes DO Hospital Course: Date of admission: 02/06/2024 Date of discharge: 02/08/2024 Admission diagnosis: Right hip osteoarthritis Discharge diagnosis: Same Attending physician: Dr. Gaines Surgical procedures: Direct anterior right total hip arthroplasty Brief history: Patient is a 63-year-old female with a history of progressive primary right hip osteoarthritis. At this point patient has failed conservative treatment measures and has opted to proceed with a elective direct anterior right total hip arthroplasty. Hospital course: Details of patient's surgery can be found in operative report. Patient tolerated the procedure well and was subsequently transported to orthopedic floor. Patient's orthopeidc and medical care was provided daily. Patient had daily laboratory tests performed for evaluation of overall blood counts. Patient had daily physical therapy to include strengthening range of motion as well as education with walker ambulation. Patient was treated with Xarelto for their postoperative DVT prophylaxis during their inpatient stay. Patient was noted to have a relatively uneventful postoperative course. Patient reported satisfactory pain control with oral pain medications by postoperative day 2. Patient showed satisfactory progress with physical therapy. Patient moved steadily through the program and had no difficulty meeting the goals by postoperative day 2. Given patient's otherwise satisfactory course and having met physical therapy goals, plan is to discharge patient home with health services on postoperative day 2. Discharge condition/disposition: Patient will be discharged home in stable condition. Discharge medications: Instructions are given on resumption of patient's normal daily medications per primary care recommendation, in addition patient will be prescribed [place]; senna; aspirin 81 mg twice a day 30 days. Discharge instructions: 1. Wound care and infection precautions, keep incision dry and covered while showering, no lotions, creams, moisturizers. No soaking, tubs, pools, hottubs. Do not scrub over the incision. 2. Weight-bear as tolerated with walker / cane until follow-up. 3. Ice and elevate when necessary. Do not exceed 20 minutes per hour with ice pack. 4. Utilize compression sleeve until seen at first follow up appointment. 5. Visiting nursing care. 6. Home physical therapy. 7. Pain meds and anticoagulants per prescription. 8. Pain medication has potential to cause constipation. Increase oral fluid and fiber intake. Contact primary care provider if you have not had a bowel movement within 48 hours after discharge 9. No anti-inflammatory medication until discussed at first post operative visit, this including Motrin, Aleve, Mobic, Diclofenac. 10. Follow up in office at 2 weeks postop with Frank Moss PA-C / Long Angulo PA-C 11. Follow up with your primary care doctor 7-10 days after discharge. 12. Contact [facility] with any questions, . Assessment: Right hip osteoarthritis Procedures: Direct anterior right total hip arthroplasty Patient Condition at Discharge: Good Plan - Discharge Summary Discharge Rx Participant: Yes New Discharge Prescriptions: New Aspirin [Adult Low Dose Aspirin EC] 81 mg PO BID #60 tab HYDROcodone/APAP 7.5-325MG [[place] 7.5-325] 1 tab PO Q6HR PRN #28 tab PRN Reason: Pain Sennosides/Docusate Sodium [Senna Plus 8.6-50 mg Softgel] 1 each PO DAILY #20 capsule Continue buPROPion HCL [Wellbutrin SR] 200 mg PO QAM ALPRAZolam [Xanax] 1 mg PO BID PRN PRN Reason: Anxiety FLUoxetine HCL [PROzac] 60 mg PO QAM Naproxen Sodium [Aleve] 440 mg PO DIRECTED PRN PRN Reason: Pain Collagen/Bone Broth 1 dose PO DIRECTED Pantoprazole [Protonix] 40 mg PO DAILY Fluticasone Nasal [place] [Flonase Nasal [place]] 1 spray EA NOSTRIL DAILY Montelukast [Singulair] 10 mg PO DAILY Albuterol Inhaler [Ventolin Hfa Inhaler] 1 - 2 puff INHALATION Q6H PRN PRN Reason: Shortness Of Breath Metoprolol Succinate [Toprol XL] 50 mg PO DAILY Atorvastatin [Lipitor] 40 mg PO HS Cyanocobalamin [Vitamin B-12 Injection] 1,000 mcg SQ WEEKLY Loratadine-Pseudoeph 5-120 mg [Claritin-D 12 Hour] 1 tab PO Q12HR PRN PRN Reason: allergies Baclofen 10 mg PO TID PRN PRN Reason: back pain Dicyclomine [Bentyl] 10 mg PO TID Discontinued Meloxicam 15 mg PO DAILY Discharge Medication List ALPRAZolam [Xanax] 1 mg PO BID PRN 01/27/20 [History] FLUoxetine HCL [PROzac] 60 mg PO QAM 01/27/20 [History] buPROPion HCL [Wellbutrin SR] 200 mg PO QAM 01/27/20 [History] Atorvastatin [Lipitor] 40 mg PO HS 01/04/22 [History] Collagen/Bone Broth 1 dose PO DIRECTED 01/04/22 [History] Cyanocobalamin [Vitamin B-12 Injection] 1,000 mcg SQ WEEKLY 01/04/22 [History] Naproxen Sodium [Aleve] 440 mg PO DIRECTED PRN 01/04/22 [History] Albuterol Inhaler [Ventolin Hfa Inhaler] 1 - 2 puff INHALATION Q6H PRN 02/01/24 [History] Baclofen 10 mg PO TID PRN 02/01/24 [History] Dicyclomine [Bentyl] 10 mg PO TID 02/01/24 [History] Fluticasone Nasal [place] [Flonase Nasal [place]] 1 spray EA NOSTRIL DAILY 02/01/24 [History] Loratadine-Pseudoeph 5-120 mg [Claritin-D 12 Hour] 1 tab PO Q12HR PRN 02/01/24 [History] Metoprolol Succinate [Toprol XL] 50 mg PO DAILY 02/01/24 [History] Montelukast [Singulair] 10 mg PO DAILY 02/01/24 [History] Pantoprazole [Protonix] 40 mg PO DAILY 02/01/24 [History] Aspirin [Adult Low Dose Aspirin EC] 81 mg PO BID #60 tab 02/08/24 [Rx] HYDROcodone/APAP 7.5-325MG [[place] 7.5-325] 1 tab PO Q6HR PRN #28 tab 02/08/24 [Rx] Sennosides/Docusate Sodium [Senna Plus 8.6-50 mg Softgel] 1 each PO DAILY #20 capsule 02/08/24 [Rx] Follow up Appointment(s)/Referral(s): Long Angulo PAC [PHYSICIAN HOSPICE TEAM LEAD] - 02/26/24 9:20 am [facility], [NON-STAFF] - 1-2 Days ([facility] will call you to schedule your in home nursing and physical therapy visits. ) Ambulatory/Diagnostic Orders: Complete Blood Count w/diff [LAB.AMB] Time Frame: 1 Week, Location: None Selected Patient Instructions/Handouts: Anterior Hip Replacement (GEN) Activity/Diet/Wound Care/Special Instructions: Orthopedic Discharge Instructions: 1. Wound care and infection precautions, keep incision dry and covered while showering, no lotions, creams, moisturizers. No soaking, pools, hot tubs. Do not scrub over incision. 2. Weight-bear as tolerated with walker / cane until follow-up. 3. Ice and elevate when necessary. Do not exceed 20 minutes per hour with ice pack. 4. Utilize compression sleeve until seen at first follow up appointment. 5. Pain meds and anticoagulants per prescription. 6. Pain medication has potential to cause constipation. Increase oral fluid and fiber intake. Contact primary care provider if you have not had a bowel movement within 48 hours after discharge. 7. No anti-inflammatory medication until discussed at first post operative visit, this including Motrin, Aleve, Mobic, Diclofenac. 8. Follow up in office at 2 weeks postop with Frank Moss PA-C / Long Angulo PA-C 9. Follow up with your primary care doctor 7-10 days after discharge. 10. Contact [facility] with any questions, . Keep incision clean, dry, intact. While showering, cover fusion tape with Saran wrap. Keep fusion tape on until follow-up appointment in office in 2 weeks. Discharge Disposition: HOME WITH HOME HEALTH SERVICES
--- NOTE | 2024-02-10 08:49 | P.PN ---
Subjective Progress Note Date: 02/08/24 - History of Present Illness 63-year-old female is admitted for right hip arthroplasty is having severe pain in the surgical site area. Patient does have history of hypertension her blood pressure is on the high side and patient has been resumed on her home regimen. 02/07/2024 Patient is seen in follow-up today with no acute overnight issues noted. Hemoglobin was noted to be 7 with history of anemia although patient has been feeling weak and does report some shortness of breath with exertion. Will transfuse 1 unit of PRBC and follow-up on repeat labs in AM. Encouraged incentive spirometer use at least 10 times every hour while awake. Patient be reevaluated by physical therapy in the a.m. Patient continues to report significant pain 02/08/2024 Patient is seen in follow-up this morning reports she will be going home today. Hemoglobin is improved status post 1 unit of PRBC and hemoglobin is 8.8 today. No active bleeding noted. Patient does have chronic anemia and instructed to follow-up with primary care provider outpatient. Patient is afebrile with no reports of chest pain or shortness of breath. Patient will be going home today. Medically stable once cleared by orthopedics jaron Review of systems: Constitutional: No reports of fatigue, fever, or chills Cardiovascular: No reports of chest pain or palpitations Respiratory: No reports of shortness of breath or cough GI: No reports of nausea, vomiting, or diarrhea : No reports of dysuria or retention Neurovascular: reports of generalized weakness right hip discomfort PHYSICAL EXAMINATION: GENERAL: The patient is alert and oriented x3, not in any acute distress. Well developed, thin build, elderly appearing HEENT: Pupils are round and equally reacting to light. EOMI. No scleral icterus. No conjunctival pallor. Normocephalic, atraumatic. No pharyngeal erythema. No thyromegaly. CARDIOVASCULAR: S1 and S2 present. No murmurs, rubs, or gallops. PULMONARY: Chest is clear to auscultation, no wheezing or crackles. ABDOMEN: Soft, nontender, nondistended, normoactive bowel sounds. No palpable organomegaly. MUSCULOSKELETAL: No joint swelling or deformity. Right hip dressing is dry and intact EXTREMITIES: No cyanosis, clubbing, or pedal edema. NEUROLOGICAL: Gross neurological examination did not reveal any focal deficits. SKIN: No rashes. Assessment and plan -Status post right total hip arthroplasty pain management and DVT prophylaxis as per primary service -Hyperlipidemia -History of rheumatoid arthritis -History of anemia -Hypertension -GI prophylaxis -DVT prophylaxis: As per primary service -Full code Plan: Patient's hemoglobin was found to be 7.0 and slightly symptomatic, gave 1 unit of PRBC and reports to feeling somewhat improved, hemoglobin is 8.8 today with no active bleeding noted. Patient reports she does have history of anemia and looking back further in the medical record patient has had hemoglobins of 8 or less over the last few months Follow-up on repeat CBC in the outpatient setting and has been instructed to follow-up with primary care provider for further workup anemia encouraged increase activity as tolerated with restrictions per orthopedics Patient will be discharged today per orthopedics. Medically stable and instructed to follow-up outpatient with orthopedics at scheduled appointment along with primary care provider. Thank you kindly for this consultation. We will continue to follow with orthopedics during hospitalization. The impression and plan of care has been dictated by Gabriella Chin, Nurse Practitioner as directed. Dr. Jose MD I have performed a history and examination and MDM of this patient, discussed the same with the dictator, and agree with the dictator's assessment and plan as written ,documented as a scribe. Based on total visit time, I have performed more than 50% of the visit. Objective - Vital Signs Vital signs: Vital Signs Temp 98.0 F 02/08/24 07:02 Pulse 77 02/08/24 08:00 Resp 16 02/08/24 08:00 BP 119/69 02/08/24 07:02 Pulse Ox 96 02/08/24 07:02 FiO2 Intake & Output 02/07/24 02/08/24 02/08/24 18:59 06:59 18:59 Intake Total 310 Balance 310 Intake: Blood Product 310 Rc As-1 Unit 310 [id number] Other: # Voids 3 - Labs CBC & Chem 7: 02/08/24 04:09 02/08/24 04:09 Labs: Abnormal Lab Results - Last 24 Hours (Table) 01/29/24 02/08/24 02/08/24 Range/Units 14:03 04:09 04:09 RBC 2.90 L (4.10-5.20) X 10*6/uL Hgb 8.8 L (12.0-15.0) g/dL Hct 26.0 L (37.2-46.3) % Plt Count 103 L (140-440) X 10*3/uL Eosinophils # 0.02 L (0.04-0.35) X 10*3/uL Sodium 130 L (135-145) mmol/L BUN 7.2 L (9.0-27.0) mg/dL BUN/Creatinine Ratio 10.29 L (12.00-20.00) Ratio Glucose 111 H (70-110) mg/dL Calcium 8.4 L (8.7-10.3) mg/dL Crossmatch See Detail
== END 2024-02-08 13:54 | disposition home health service (06) ==
LOC: OR 05:38 → 4SSUR 09:22 → OR 02-07 13:16 → 4SSUR 02-07 13:16
PROVIDERS: ADMIT Orthopaedic Surgery; ATTEND Orthopaedic Surgery
DX: M16.11 Unilateral primary osteoarthritis, right hip (principal); D64.9 Anemia, unspecified; I10 Essential (primary) hypertension; M06.9 Rheumatoid arthritis, unspecified; K21.9 Gastro-esophageal reflux disease without esophagitis; E78.5 Hyperlipidemia, unspecified; Z79.1 Long term (current) use of non-steroidal anti-inflammatories (NSAID); Z79.899 Other long term (current) drug therapy; Z88.0 Allergy status to penicillin; Z87.891 Personal history of nicotine dependence
CPT/HCPCS: 27130; 36430; 97162; 97535; 97166; 64447; 86900; 86901; 80048; 85025 ×2; 86850; 86920; 73501; G0378 ×2; C1776; P9016; J2250; J1171 ×2; J1100; S0106 ×2; J0690 ×3; J2405; J3010; J2795; J2704